=== PATIENT | male | born 1945 | race Caucasian/White ===

== ENCOUNTER → 2017-01-07 | Outpatient (CLI) | payer MEDICARE ==
[~2017-01-07] MED LIST: ASP81TEC PO; ATR20T PO; ENAL10TA PO; GBPN300C PO; GLIM4TAB PO; LINA5TAB PO; OMEP40CA36 PO; TIZA4TAB55 PO
--- OUTSIDE RECORDS SUMMARY | 2017-01-07 13:20 | XMS REPORT | Continuity of Care Document ---
Author Author [facility] Organization [facility] Address Unknown Phone Unavailable Care Team Providers Care Phd Internship Name Role Phone Chrisfritz Andrey PCP [phone] Source Comments Some departments are not documenting in the electronic medical record. If you do not see the information that you expected, contact Release of Information in the Health Information Management department at [phone] for further assistance in locating additional records.[facility] Active Allergies and Adverse Reactions No Known Allergies Current Medications Prescription Sig. Disp. Refills Start End Date Status Date sitaGLIPtin (JANUVIA) 100 Take 100 mg by mouth Active mg tab tablet daily. enalapril (VASOTEC) 10 mg Take 10 mg by mouth Active tablet daily. atorvastatin (LIPITOR) 20 Take 20 mg by mouth Active mg tablet daily. omeprazole DR(+) Take 40 mg by mouth Active (PRILOSEC) 40 mg capsule daily. gabapentin (NEURONTIN) Take 300 mg by mouth Active 300 mg capsule three times daily. meloxicam (MOBIC) 15 mg Take 1 Tab by mouth 30 Tab 8 01/19/20 Active tablet daily. 16 LEVEMIR FLEXTOUCH 100 Inject 30 Units into 01/08/20 Active unit/mL (3 mL) injection area(s) as directed at 16 pen bedtime daily. aspirin EC 81 mg tablet Take 81 mg by mouth Active daily. 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 Social History Tobacco Use Types Packs/Day Years Used Date Never Smoker Alcohol Use Drinks/Week oz/Week Comments No 0 Standard 0.0 drinks or equivalent Last Filed Vital Signs Vital Sign Reading Time Taken Blood Pressure 117/50 03/12/2016 1:59 PM CDT Pulse 59 03/12/2016 1:20 PM CDT Temperature 36.5 C (97.7 F) 03/12/2016 12:26 PM CDT Respiratory Rate 20 03/12/2016 12:26 PM CDT Height 1.778 m (5' 10") 03/12/2016 12:26 PM CDT Weight 85.73 kg (189 lb) 03/12/2016 12:26 PM CDT Body Mass Index 27.12 03/12/2016 12:26 PM CDT Oxygen Saturation 96% 03/12/2016 1:59 PM CDT Plan of Care Health Maintenance Due Date Last Done Comments Physical (Comprehensive) 1952 Exam Pertussis Vaccine 1957 Tetanus Vaccine 1963 Colorectal Cancer 1996 Screening Shingles Vaccine 2006 Prevnar/Pneumovax (#1) 2011 Influenza Vaccine 07/04/2016 Results from Last 3 Months Not on file
--- NOTE | 2017-01-07 17:25 | Diagnostic Imaging Report ---
Right ribs. INDICATION: Injury with pain. FINDINGS: Three views were obtained. The previous right rib series of 12/09/2013 noted mildly displaced fractures involving the posterolateral aspects of the right fourth, fifth, and sixth ribs. Those fractures have healed with mild residual deformity. The prior exam also noted healed nondisplaced fractures of the anterior aspects of the right eighth, ninth, and tenth ribs. Those findings are again evident and no different. There is no acute displaced rib fracture visualized. There is no sign of an injury to the underlying right lung either. Specifically, there is no pneumothorax. IMPRESSION: There are multiple healed rib fractures on the right, but there is no evidence for an acute bony abnormality. Dictated by: Dictated on workstation # [id number]
== END ==
LOC: RAD 13:16
PROVIDERS: ATTEND Family Medicine
DX: S29.9XXA Unspecified injury of thorax, initial encounter (principal); W06.XXXA Fall from bed, initial encounter; Y99.8 Other external cause status
CPT/HCPCS: 71100

== ENCOUNTER 2021-11-19 09:41 | Emergency (ER) | payer MEDICARE ==
[~2021-11-19] VITALS: Ht 177.8 cm; Wt 83.4 kg
[2021-11-19 10:37] LABS: BASOPHILS % (AUTO) 0 % (0-10); EOSINOPHILS # (AUTO) 0.1 10^3/uL (0.0-0.3); EOSINOPHILS % (AUTO) 2 % (0-10); HEMATOCRIT 44 % (40-54); HEMOGLOBIN 14.5 g/dL (13.3-17.7); LYMPHOCYTES # (AUTO) 0.7 10^3/uL (1.0-4.0); LYMPHOCYTES % (AUTO) 17 % (12-44); MEAN CORPUSCULAR HEMOGLOBIN 29 pg (25-34); MEAN CORPUSCULAR HGB CONC 33 g/dL (32-36); MEAN CORPUSCULAR VOLUME 88 fL (80-99); MEAN PLATELET VOLUME 10.1 fL (9.0-12.2); MONOCYTES # (AUTO) 0.6 10^3/uL (0.0-1.0); MONOCYTES % (AUTO) 16 % (0-12); NEUTROPHILS # (AUTO) 2.6 10^3/uL (1.8-7.8); NEUTROPHILS % (AUTO) 65 % (42-75); PLATELET COUNT 164 10^3/uL (130-400); WHITE BLOOD COUNT 4.1 10^3/uL (4.3-11.0)
[2021-11-19 10:56] LABS: ALBUMIN 4.1 GM/DL (3.2-4.5)
[2021-11-19 10:57] LABS: POTASSIUM 3.9 MMOL/L (3.6-5.0)
[2021-11-19 10:58] LABS: CALCIUM 8.9 MG/DL (8.5-10.1)
[2021-11-19 10:59] LABS: TOTAL PROTEIN 7.3 GM/DL (6.4-8.2)
[2021-11-19 11:01] LABS: BILIRUBIN,TOTAL 0.7 MG/DL (0.1-1.0)
[2021-11-19 11:03] LABS: CREATININE SERUM 1.61 MG/DL (0.60-1.30)
--- NOTE | 2021-11-19 11:25 | ED General ---
General Chief Complaint: COVID19 Suspect/Confirmed Stated Complaint: COVID + Nursing Triage Note: PT AMB TO RM 9 WITH COMPLAINT OF BACK PAIN, NAUSEA, SHAKINESS. STATES TESTED POSITIVE 11/14/21 FOR COVID WITH SYMPTOMS STARTING 3 DAYS BEFORE. SCHEDULED FOR INFUSION ON FRIDAY. Source of Information: Patient Exam Limitations: No Limitations (DALTON GEE APRN) History of Present Illness Date Seen by Provider: Nov 19, 2021 Time Seen by Provider: 11:11 Initial Comments This is a 76-year-old male who presented to the ER with complaints of left lower back/flank pain for the past 3 days. States that he was positive for COVID on 11/14/2021 with symptom onset 3 days prior to positive test. Also notes that he thinks he swallowed a whole popsicle stick 3 days ago. He is set up to receive monoclonal antibody infusion this . However would like to have his left side checked out. No cough, shortness of breath, chest pain, vomiting. Denies painful urination or hematuria. (DALTON GEE APRN) Allergies and Home Medications Allergies Coded Allergies: No Known Drug Allergies (Unverified , 09/10/12) Patient Home Medication List Home Medication List Reviewed: Yes (DALTON GEE APRN) Aspirin (Aspirin Ec 81 Mg) 81 Mg Tabec, 81 MG PO DAILY, (Reported) Entered as Reported by: ROSE LOPEZ on 09/09/12935 Atorvastatin (Lipitor 20MG) 20 Mg Tablet, 1 EACH PO DAILY, (Reported) Entered as Reported by: ROSE LOPEZ on 09/09/12935 Enalapril Maleate (Enalapril Maleate) 10 Mg Tablet, 10 MG PO DAILY, (Reported) Entered as Reported by: ROSE LOPEZ on 09/09/12935 Gabapentin (Neurontin) 300 Mg Cap, 300 MG PO DAILY, (Reported) Entered as Reported by: ROSE LOPEZ on 09/09/12935 Glimepiride (Glimepiride) 4 Mg Tablet, 6 MG PO DAILY, (Reported) Entered as Reported by: ROSE LOPEZ on 09/09/12935 Linagliptin (Tradjenta) 5 Mg Tablet, 5 MG PO DAILY, (Reported) Entered as Reported by: ROSE LOPEZ on 09/09/12935 Omeprazole (Omeprazole) 40 Mg Capsule.dr, 40 MG PO DAILY, (Reported) Entered as Reported by: ROSE LOPEZ on 09/09/12935 Tizanidine Hcl (Tizanadine Hcl) 4 Mg Tablet, 4 MG PO TID, (Reported) Entered as Reported by: ROSE LOPEZ on 09/09/12935 Review of Systems Review of Systems Constitutional: malaise EENTM: see HPI Respiratory: cough Cardiovascular: no symptoms reported Gastrointestinal: see HPI Genitourinary: no symptoms reported Musculoskeletal: no symptoms reported Skin: no symptoms reported Psychiatric/Neurological: No Symptoms Reported Hematologic/Lymphatic: No Symptoms Reported Immunological/Allergic: no symptoms reported (DALTON GEE APRN) Past Vbzuoyi-Imxoyd-Qljcck Hx Patient Social History Tobacco Use?: No Use of E-Cig and/or Vaping dev: No Substance use?: No Alcohol Use?: No Pt feels they are or have been: No (DALTON GEE APRN) Immunizations Up To Date Influenza Vaccine Up-to-Date: Yes; Up-to-Date First/Initial COVID19 Vaccinat: SEPTEMBER 23 Second COVID19 Vaccination Melvin: SEPTEMBER 2021 COVID19 Vaccine Teacher Vocal: BRANDAN (DALTON GEE APRN) Past Medical History Reproductive Disorders: No (DALTON GEE APRN) Physical Exam Vital Signs Vital Signs - First Documented 11/19/21 09:51 Pulse 72 Resp 16 B/P (MAP) 160/92 (114) Pulse Ox 98 O2 Delivery Room Air (SABAS STEEN MD) Vital Signs Capillary Refill : Less Than 3 Seconds (DALTON GEE APRN) Height, Weight, BMI Height: '" Weight: lbs. oz. kg; 26.00 BMI Method: General Appearance: No Apparent Distress, WD/WN Eyes: Bilateral Eye Normal Inspection, Bilateral Eye PERRL, Bilateral Eye EOMI HEENT: PERRL/EOMI, Normal ENT Inspection, Pharynx Normal, Moist Mucous Membranes Neck: Full Range of Motion, Normal Inspection, Non Tender Respiratory: Chest Non Tender, Lungs Clear, Normal Breath Sounds, No Accessory Muscle Use, No Respiratory Distress Cardiovascular: Regular Rate, Rhythm, Normal Peripheral Pulses Gastrointestinal: Normal Bowel Sounds, No Organomegaly, No Pulsatile Mass, Non Tender, Soft Back: Normal Inspection, No CVA Tenderness, Other (Left lower back tenderness ) Extremity: Normal Capillary Refill, Normal Inspection, Normal Range of Motion Neurologic/Psychiatric: Alert, Oriented x3, No Motor/Sensory Deficits, Normal Mood/Affect Skin: Normal Color, Warm/Dry (DALTON GEE APRN) Progress/Results/Core Measures Suspected Sepsis SIRS Temperature: Pulse: 72 Respiratory Rate: 16 Laboratory Tests 11/19/21 10:30: White Blood Count 4.1L Blood Pressure 160 /92 Mean: 114 Laboratory Tests 11/19/21 10:30: Creatinine 1.61H, Platelet Count 164, Total Bilirubin 0.7 (DALTON GEE APRN) Results/Orders Lab Results Laboratory Tests Test 11/19/21 10:30 11/19/21 13:25 Range/Units White Blood Count 4.1 L 4.3-11.0 10^3/uL Red Blood Count 4.95 4.30-5.52 10^6/uL Hemoglobin 14.5 13.3-17.7 g/dL Hematocrit 44 40-54 % Mean Corpuscular Volume 88 80-99 fL Mean Corpuscular Hemoglobin 29 25-34 pg Mean Corpuscular Hemoglobin Concent 33 32-36 g/dL Red Cell Distribution Width 12.6 10.0-14.5 % Platelet Count 164 130-400 10^3/uL Mean Platelet Volume 10.1 9.0-12.2 fL Immature Granulocyte % (Auto) 0 % Neutrophils (%) (Auto) 65 42-75 % Lymphocytes (%) (Auto) 17 12-44 % Monocytes (%) (Auto) 16 H 0-12 % Eosinophils (%) (Auto) 2 0-10 % Basophils (%) (Auto) 0 0-10 % Neutrophils # (Auto) 2.6 1.8-7.8 10^3/uL Lymphocytes # (Auto) 0.7 L 1.0-4.0 10^3/uL Monocytes # (Auto) 0.6 0.0-1.0 10^3/uL Eosinophils # (Auto) 0.1 0.0-0.3 10^3/uL Basophils # (Auto) 0.0 0.0-0.1 10^3/uL Immature Granulocyte # (Auto) 0.0 0.0-0.1 10^3/uL Sodium Level 138 135-145 MMOL/L Potassium Level 3.9 3.6-5.0 MMOL/L Chloride Level 105 98-107 MMOL/L Carbon Dioxide Level 21 21-32 MMOL/L Anion Gap 12 5-14 MMOL/L Blood Urea Nitrogen 24 H 7-18 MG/DL Creatinine 1.61 H 0.60-1.30 MG/DL Estimat Glomerular Filtration Rate 44 BUN/Creatinine Ratio 15 Glucose Level 181 H 70-105 MG/DL Calcium Level 8.9 8.5-10.1 MG/DL Corrected Calcium 8.8 8.5-10.1 MG/DL Total Bilirubin 0.7 0.1-1.0 MG/DL Aspartate Amino Transf (AST/SGOT) 15 5-34 U/L Alanine Aminotransferase (ALT/SGPT) 17 0-55 U/L Alkaline Phosphatase 67 40-136 U/L C-Reactive Protein High Sensitivity 0.09 0.00-0.50 MG/DL Total Protein 7.3 6.4-8.2 GM/DL Albumin 4.1 3.2-4.5 GM/DL Lipase 43 8-78 U/L Urine Color YELLOW Urine Clarity CLEAR Urine pH 6.0 5-9 Urine Specific [place] 1.015 L 1.016-1.022 Urine Protein TRACE H NEGATIVE Urine Glucose (UA) 3+ H NEGATIVE Urine Ketones 1+ H NEGATIVE Urine Nitrite NEGATIVE NEGATIVE Urine Bilirubin NEGATIVE NEGATIVE Urine Urobilinogen 0.2 < = 1.0 MG/DL Urine Leukocyte Esterase NEGATIVE NEGATIVE Urine RBC (Auto) TRACE-I H NEGATIVE Urine RBC NONE /HPF Urine WBC 0-2 /HPF Urine Squamous Epithelial Cells 0-2 /HPF Urine Crystals NONE /LPF Urine Bacteria NEGATIVE /HPF Urine Casts NONE /LPF Urine Mucus NEGATIVE /LPF Urine Culture Indicated NO (SABAS STEEN MD) My Orders Orders - SABAS STEEN MD Cbc With Automated Diff (11/19/21 09:57) Comprehensive Metabolic Panel (11/19/21 09:57) Hs C Reactive Protein (11/19/21 09:57) Lipase (11/19/21 09:57) Ua Culture If Indicated (11/19/21 09:57) Ed Iv/Invasive Line Start (11/19/21 09:57) (SABAS STEEN MD) Vital Signs/I&O 11/19/21 11/19/21 09:51 14:15 Pulse 72 86 Resp 16 19 B/P (MAP) 160/92 (114) 153/89 Pulse Ox 98 95 O2 Delivery Room Air Room Air (SABAS STEEN MD) Vital Signs/I&O Capillary Refill : Less Than 3 Seconds (DALTON GEE APRN) Blood Pressure Mean: 114 Progress Note : Progress Note Patient examined and in no acute distress. Vital signs stable at this time. Will order basic labs, chest x-ray, CT abdomen pelvis without contrast to evaluate for any foreign bodies or perforation. Labs reviewed and are unremarkable. Has decreased white count consistent with COVID. Chest x-ray no acute pulmonary process. CT abdomen pelvis shows nonobstructing left renal calculi and a large left hiatal hernia. No other acute processes seen. States pain is tolerable at this time and denies any needs for pain management. Discharge plan of care reviewed with patient and he is agreeable with plan. (DALTON GEE APRN) Diagnostic Imaging Diagonstic Imaging: [facility] [place] [place] NAME: CHANDAN HUA [facility] REC#: [id number] PT STATUS: DEP ER : 1945 PHYSICIAN: DALTON GEE APRN ADMIT DATE: 11/19/21/ER Signed Date of Exam:11/19/21 CHEST 1 VIEW, AP/PA ONLY INDICATION: COVID-19 positive. TIME OF EXAM: 11:46 a.m. COMPARISON: Comparison is made with prior chest from 09/09/2012. FINDINGS: Heart size is normal. Lungs are clear. No infiltrates are detected. The pulmonary vascularity is normal. No effusion or pneumothorax is detected. IMPRESSION: No acute cardiopulmonary process is detected. Dictated by: Dictated on workstation # [id number] Dict: 11/19/21 1158 Trans: 11/19/21 1600 AS6 [id number] Interpreted by: LYDIA ALONSO MD Electronically signed by: LYDIA ALONSO MD 11/19/21 1600 Reviewed: Reviewed by De Diagonstic Imaging: CT Comments [facility] [place] [place] NAME: CHANDAN HUA [facility] REC#: [id number] PT STATUS: DEP ER : 1945 PHYSICIAN: DALTON GEE APRN ADMIT DATE: 11/19/21/ER Signed Date of Exam:11/19/21 CT ABDOMEN/PELVIS WO PROCEDURE: CT abdomen and pelvis without contrast. TECHNIQUE: Multiple contiguous axial images were obtained through the abdomen and pelvis without the use of intravenous contrast. Auto Exposure Controls were utilized during the CT exam to meet ALARA standards for radiation dose reduction. INDICATION: Abdominal pain and cramping as well as constipation. COMPARISON: No prior studies are available for comparison. FINDINGS: Lung bases are clear. There is a large hiatal hernia. There is a small pericardial effusion. There appears to be trace bilateral pleural fluid. The liver and gallbladder are unremarkable. No biliary ductal dilatation is seen. Pancreas and spleen are unremarkable. No adrenal mass is detected. Kidneys contain cortical and renal sinus cysts. There is a small nonobstructing calculus in the left kidney. No hydronephrosis is seen. The aorta is nonaneurysmal. Bowel loops are normal in caliber. There is no obstruction. No free fluid or fluid collection is seen. No inflammatory changes are identified. Bladder is grossly unremarkable. Prostate is unremarkable. No definite abdominal or pelvic lymphadenopathy is seen. Bony structures are nonacute. There are bilateral pars defects at L5-S1 with grade 1 spondylolisthesis of L5 on S1. IMPRESSION: 1. Large hiatal hernia. 2. No acute feature in the abdomen or pelvis is identified. Dictated by: Dictated on workstation # [id number] Dict: 11/19/21 1342 Trans: 11/19/21 1600 [id number] Interpreted by: LYDIA ALONSO MD Electronically signed by: LYDIA ALONSO MD 11/19/21 1600 Reviewed: Reviewed by Me (DALTON GEE APRN) Departure Impression Primary Impression: COVID-19 Additional Impression: Renal calculus, left Disposition: HOME, SELF-CARE Condition: Improved Departure-Patient Inst. Decision time for Depature: 14:10 (DALTON GEE APRN) Referrals: PALMIRA OCONNOR DO (PCP/Family) Primary Care Physician Patient Instructions: COVID-19 (DC) Add. Discharge Instructions: Plan: 1. Return on for your monoclonal antibody infusion as scheduled. 2. May take Tylenol or Ibuprofen as needed for pain per package. 3. Return for any new, concerning, or worsening symptoms. 4. Drink plenty of fluids to stay hydrated. All discharge instructions reviewed with patient and/or family. Voiced understanding. ATTENDING PHYSICIAN NOTE: I was physically present as attending physician in the emergency department during the care of this patient, but I was not directly involved in the decision making or delivery of care for this patient. (SABAS STEEN MD) DALTON GEE APRN Nov 19, 2021 11:25 SABAS STEEN MD Nov 25, 2021 06:43
--- NOTE | 2021-11-19 12:03 | Diagnostic Imaging Report ---
INDICATION: COVID-19 positive. TIME OF EXAM: 11:46 a.m. COMPARISON: Comparison is made with prior chest from 09/09/2012. FINDINGS: Heart size is normal. Lungs are clear. No infiltrates are detected. The pulmonary vascularity is normal. No effusion or pneumothorax is detected. IMPRESSION: No acute cardiopulmonary process is detected. Dictated by: Dictated on workstation # [id number]
[2021-11-19] MEDS ORDERED: LACTATED RINGERS 1,000 ML IV ONE (12:45)
[2021-11-19 13:32] LABS: BILIRUBIN,URINE NEGATIVE (NEGATIVE); CLARITY,URINE CLEAR; COLOR,URINE YELLOW; GLUCOSE, URINE (UA) 3+ (NEGATIVE); KETONES,URINE 1+ (NEGATIVE); LEUKOCYTE ESTERASE ,URINE NEGATIVE (NEGATIVE); NITRITE,URINE NEGATIVE (NEGATIVE); PROTEIN,URINE TRACE (NEGATIVE)
[2021-11-19 13:38] LABS: WBC,URINE 0-2 /HPF
[2021-11-19 13:39] LABS: BACTERIA,URINE NEGATIVE /HPF; SQUAMOUS EPITHELIAL CELL,UR 0-2 /HPF
--- NOTE | 2021-11-19 13:52 | Diagnostic Imaging Report ---
PROCEDURE: CT abdomen and pelvis without contrast. TECHNIQUE: Multiple contiguous axial images were obtained through the abdomen and pelvis without the use of intravenous contrast. Auto Exposure Controls were utilized during the CT exam to meet ALARA standards for radiation dose reduction. INDICATION: Abdominal pain and cramping as well as constipation. COMPARISON: No prior studies are available for comparison. FINDINGS: Lung bases are clear. There is a large hiatal hernia. There is a small pericardial effusion. There appears to be trace bilateral pleural fluid. The liver and gallbladder are unremarkable. No biliary ductal dilatation is seen. Pancreas and spleen are unremarkable. No adrenal mass is detected. Kidneys contain cortical and renal sinus cysts. There is a small nonobstructing calculus in the left kidney. No hydronephrosis is seen. The aorta is nonaneurysmal. Bowel loops are normal in caliber. There is no obstruction. No free fluid or fluid collection is seen. No inflammatory changes are identified. Bladder is grossly unremarkable. Prostate is unremarkable. No definite abdominal or pelvic lymphadenopathy is seen. Bony structures are nonacute. There are bilateral pars defects at L5-S1 with grade 1 spondylolisthesis of L5 on S1. IMPRESSION: 1. Large hiatal hernia. 2. No acute feature in the abdomen or pelvis is identified. Dictated by: Dictated on workstation # [id number]
[2021-11-19 14:15] VITALS: BP 153/89
== END 2021-11-19 14:15 | disposition home or self-care (01) ==
LOC: EDUNIT# 09:41 → ER 09:43
DX: U07.1 COVID-19 (principal); N20.0 Calculus of kidney; Z79.82 Long term (current) use of aspirin
CPT/HCPCS: 36415; 71045; 74176; 80053; 81000; 83690; 85025; 86141

== ENCOUNTER 2021-11-22 09:02 | Outpatient (CLI) | payer MEDICARE ==
[~2021-11-22] VITALS: Ht 177.8 cm; Wt 82.1 kg
[2021-11-22 09:07] VITALS: BP 150/82
[2021-11-22] MEDS ORDERED: CASIRIVIMAB/IMDEVIMAB 1,200 MG in NS (IVPB) 50 ML IV ONE (09:15)
[2021-11-22] MEDS ORDERED: diphenhydrAMINE 50 MG/ML INJ (BENADRYL) IV PRN (09:15)
[2021-11-22] MEDS ORDERED: ACETAMINOPHEN 500 MG TAB (TYLENOL) PO PRN (09:15)
[2021-11-22] MEDS ORDERED: EPINEPHrine INJECTION 1 MG/ML AMP IM PRN (09:15)
[2021-11-22] MEDS ORDERED: ONDANSETRON 4 MG/2 ML (SDV) Z0FRAN IV PRN (09:15)
[2021-11-22 10:05] VITALS: BP 137/81
== END 2021-11-22 10:07 | disposition home or self-care (01) ==
LOC: INFUSION 09:02
PROVIDERS: ATTEND Family Medicine
DX: U07.1 COVID-19 (principal)

== ENCOUNTER → 2022-03-28 | Outpatient (CLI) | payer MEDICARE ==
--- NOTE | 2022-03-28 11:29 | Diagnostic Imaging Report ---
EXAMINATION: Chest 2 view HISTORY: Shortness of breath. COMPARISON: 11/19/2021. FINDINGS: The lung volumes are hyperexpanded. No focal consolidation is seen. No large pleural effusion or pneumothorax is seen. The cardiomediastinal silhouette is normal in size and contour. No acute osseous abnormality is seen. IMPRESSION: 1. Hyperexpanded lung volumes which can be seen with COPD. No focal consolidation or pleural effusion. Dictated by: Dictated on workstation # [id number]
== END ==
LOC: RAD 09:27
PROVIDERS: ATTEND Family Medicine
DX: R06.02 Shortness of breath (principal)
CPT/HCPCS: 71046

== ENCOUNTER → 2022-04-03 | Outpatient (CLI) | payer MEDICARE ==
[~2022-04-03] MED LIST changes: +CATHETER FLUSH 10 ML SYR IVP PRN; +REGADENOSON 0.4 MG/5 ML SYR (LEXISCAN) IV ONE
[2022-04-03 09:27] VITALS: BP 144/86
--- NOTE | 2022-04-03 11:27 | Cardiology Stress Test Report ---
Stress Test Report Date of Procedure/Referring: Date of Procedure: Apr 03, 2022 PCP Andrey Oconnor DO Admitting Physician Admitting Physician: Attending Physician: Andrey Oconnor DO Indications: Dyspnea Baseline Heart Rate: 63 Baseline Blood Pressure: Blood Pressure Systolic: 144 Blood Pressure Diastolic: 86 Baseline Vitals Vital Signs Date Time Temp Pulse Resp B/P (MAP) Pulse Ox O2 Delivery O2 Flow Rate FiO2 04/03/22 09:27 63 144/86 (105) Baseline EKG: Baseline EKG: NSR Summary After explaining the procedure to the patient, he signed a consent and then brought to the stress nuclear laboratory. Patient received 0.4 mg Lexiscan for stress test, ECG, heart rate and blood pressure were monitored continuously. Resting and stress dose of radio tracer were injected, imaging was acquired and reviewed in short axis, horizontal long axis and vertical long axis views. TID: 1.08 SSS: 3 SDS: 1 EF: 59 1. Patient tolerated Lexiscan well 2. Diaphragmatic attenuation with mild decrease uptake at the inferior apical segment with mild reversibility most probably due to diaphragmatic attenuation. No significant ischemia or infarction noted on SPECT images 3. Normal left ventricular size, ejection fraction 59% Copy Copies To 1: ANDREY OCONNOR BASHAR J MD Apr 03, 2022 11:27
== END ==
LOC: CARD 08:30
PROVIDERS: ATTEND Family Medicine
DX: R06.02 Shortness of breath (principal); R06.00 Dyspnea, unspecified
CPT/HCPCS: 78452; 93017; A9502

== ENCOUNTER → 2022-04-09 | Outpatient (CLI) | payer MEDICARE ==
[~2022-04-09] MED LIST changes: -CATHETER FLUSH 10 ML SYR IVP PRN; -REGADENOSON 0.4 MG/5 ML SYR (LEXISCAN) IV ONE; +RT-ALBUTEROL SULF 2.5 MG/3 ML PRE-MIX VIAL INH ONE
== END ==
LOC: RT 08:00
PROVIDERS: ATTEND Family Medicine
DX: J44.9 Chronic obstructive pulmonary disease, unspecified (principal)
CPT/HCPCS: 94060; 94726; 94729

== ENCOUNTER 2022-04-24 10:00 | Day surgery (SDC) | payer MEDICARE ==
[2022-04-24] VITALS (10 sets, daily range): BP systolic 134–156; BP diastolic 77–91
[~2022-04-24] VITALS: Ht 177.8 cm; Wt 88.0 kg
[2022-04-24 08:17] LABS: BILIRUBIN,URINE NEGATIVE (NEGATIVE); CLARITY,URINE CLEAR; COLOR,URINE YELLOW; GLUCOSE, URINE (UA) 2+ (NEGATIVE); KETONES,URINE NEGATIVE (NEGATIVE); LEUKOCYTE ESTERASE ,URINE NEGATIVE (NEGATIVE); NITRITE,URINE NEGATIVE (NEGATIVE); PROTEIN,URINE TRACE (NEGATIVE)
--- NOTE | 2022-04-24 08:19 | Diagnostic Imaging Report ---
INDICATION: Shortness of breath. Time of Exam: 8:04 AM Correlation is made with prior chest from 11/19/2021. Heart size is stable. Lungs are clear. No infiltrates are seen. There is no effusion or pneumothorax. IMPRESSION: No acute cardiopulmonary process is detected. Dictated by: Dictated on workstation # [id number]
[2022-04-24 08:29] LABS: HEMATOCRIT 41 % (40-54); HEMOGLOBIN 13.5 g/dL (13.3-17.7); MEAN CORPUSCULAR HEMOGLOBIN 29 pg (25-34); MEAN CORPUSCULAR HGB CONC 33 g/dL (32-36); MEAN CORPUSCULAR VOLUME 89 fL (80-99); MEAN PLATELET VOLUME 10.3 fL (9.0-12.2); PLATELET COUNT 212 10^3/uL (130-400); WHITE BLOOD COUNT 8.4 10^3/uL (4.3-11.0)
[2022-04-24 08:34] LABS: PROTHROMBIN TIME PATIENT 13.1 SEC (12.2-14.7)
[2022-04-24 08:37] LABS: ALBUMIN 4.1 GM/DL (3.2-4.5); BILIRUBIN,TOTAL 0.6 MG/DL (0.1-1.0); CALCIUM 9.5 MG/DL (8.5-10.1); CREATININE SERUM 1.3 MG/DL (0.60-1.30); POTASSIUM 4.4 MMOL/L (3.6-5.0); TOTAL PROTEIN 7.5 GM/DL (6.4-8.2)
[2022-04-24 08:44] LABS: BACTERIA,URINE NEGATIVE /HPF; HYALINE CASTS, URINE 0-2 /LPF; SQUAMOUS EPITHELIAL CELL,UR RARE /HPF; WBC,URINE RARE /HPF
--- NOTE | 2022-04-24 09:31 | Conscious Sedation/ASA ---
Conscious Sedation Pre-Proced Time 09:31 ASA Score 3 For ASA 3 and 4: Consider anesthesia and medical clearance. Also, for patients with a history of failed moderate sedation consider anesthesia. Airway Lungs Heart ASA score ASA 1: a normal healthy patient ASA 2: a patient with a mild systemic disease (mid diabetes, controlled hypertension, obesity x ASA 3: a patient with a severe systemic disease that limits activity (angina, COPD, prior Myocardial infarction) ASA 4: a patient with an incapacitating disease that is a constant threat to life (CHF, renal failure) ASA 5: a moribund patient not expected to survive 24 hrs. (ruptured aneurysm) ASA 6: a declared brain- patient whose organs are being harvested. For emergent operations, add the letter E after the classification Mallampati Classification Grade 3 Sedation Plan Analgesia, Amnesia, Plan communicated to team members, Discussed options with patient/fam, Discussed risks with patient/fam The patient is an appropriate candidate to undergo the planned procedure, sedation, and anesthesia. The patient immediately re-assessed prior to indication. CHEO TRUJILLO MD Apr 24, 2022 09:31
[~2022-04-24 10:00] MED LIST changes: +ATOR40TA70 PO; +FINA5TAB6 PO; +GABA300C PO; +HEParin (CATH LAB) 2,000 ML IV ONE; +HEParin 1000 UNIT/ML (10ML VIAL) FOR BOLUS ONE; +INSU100I29 SQ; +LIDOCAINE 1% INJ 20 ML VIAL ONE; +METF-397 PO; +MIDAZOLAM 5 MG/5 ML (VERSED) VIAL ONE; +NITRO DRIP 25000 MCG/D5W 250 ML IV ONE; +NS IV 1000 ML 1,000 ML IV SCH; +NS IV 1000 ML 1,000 ML ONE; +OMEP40CA6 PO; +RT-ALBUINH INH; -RT-ALBUTEROL SULF 2.5 MG/3 ML PRE-MIX VIAL INH ONE; +SITA100T12 PO; +TMSL.4C PO; +VERAPAMIL 5 MG/2 ML (CALAN) VIAL IV ONE; +fentaNYL INJ 100 MCG/2 ML AMP ONE
--- NOTE | 2022-04-24 10:23 | Cardiac Cath Report ---
Cardiac Cath Report Physician (s)/State Comptroller (s) Physician CHEO TRUJILLO MD Pre-Procedure Diagnosis Pre-Procedure Diagnosis: Accelerating angina Post-Procedure Note Procedure Start Date: Apr 24, 2022 Name of Procedure: Left heart catheterization Aortic arch angiogram Findings/Procedure Note PROCEDURE NOTE: 77-year-old gentleman with history of diabetes mellitus, hypertension and hyperlipidemia, having accelerating angina, had an abnormal stress test. Due to his significant symptoms I decided to proceed with cardiac catheterization possible PTCA. After explaining the procedure to the patient, all pros and cons were explained, all questions were answered. The patient signed the consent and then he was placed on the cardiac catheterization laboratory. Groin was prepped SL fashion local anesthesia was used. Sheath placed in the right radial artery, [place] catheter was advanced and prolapsed to the left ventricular cavity, pressure was measured, pullback LV to aorta was done, engaged the right and left coronary system, angiogram was done then I pulled the catheter back to the aortic arch I performed aortic arch angiogram due to the significant tortuosity encountered during advancing the catheter through the brachiocephalic artery. At the end of the procedure the sheath was removed. Vascular band was used FINDINGS: Hemodynamics LV 82/17, end-diastolic pressure of 17 Aorta 96/66 mean of 73 ANATOMY: Left Main is free of obstructive disease Left Anterior Descending has 95% stenosis proximally, 90% stenosis at the midportion, diagonal artery has 60 to 70% stenosis. Left Circumflex is moderate in size with 40 to 50% stenosis at the midportion Right Coronary Artery is large dominant artery with long tubular stenosis 80%. LV Gram was not done, his ejection fraction is known to be 60% on the stress test Aorta evaluation done with aortic arch angiogram showing slightly prominent aor tic arch, tortuous brachiocephalic artery, no obstruction was noted, the left carotid and left subclavian arteries appeared normal CONCLUSION: 1. Severe multivessel coronary artery disease involving the proximal and mid LAD, proximal diagonal artery, proximal right coronary artery and mild to moderate disease in the circumflex system 2. Normal left ventricular end-diastolic pressure, known ejection fraction 60% from the gated images. 3. Slightly prominent aortic arch, tortuous brachiocephalic artery with mild calcification nonobstructive disease DISCUSSION AND RECOMMENDATION: Continue to maximize medical therapy and arrange for evaluation for bypass surgery Anesthesia Type: Conscious Sedation Estimated blood loss (mL): 15 ml Contrast Amount: 40 ml Total Radiation Dose: 448 mGy Post-Procedure Diagnosis Post-operative diagnosis: Coronary artery disease Hypertension Hyperlipidemia Diabetes mellitus CHEO TRUJILLO MD Apr 24, 2022 10:23
[2022-04-24] MEDS ORDERED: NS IV 1000 ML 1,000 ML IV SCH (10:30)
== END 2022-04-24 14:34 | disposition short-term general hospital (02) ==
LOC: CATH 10:00 → CSD 11:08 → CATH 14:34
PROVIDERS: ATTEND Internal Medicine Cardiovascular Disease
DX: I25.110 Atherosclerotic heart disease of native coronary artery with unstable angina pectoris (principal); I10 Essential (primary) hypertension; E78.5 Hyperlipidemia, unspecified; E11.9 Type 2 diabetes mellitus without complications; I65.23 Occlusion and stenosis of bilateral carotid arteries; Z79.4 Long term (current) use of insulin; Z79.84 Long term (current) use of oral hypoglycemic drugs
CPT/HCPCS: 36221; 71045; 80053; 80061; 81000; 85027; 85610; 85730; 87081; 93458; C1894; 36415; 93005

== ENCOUNTER 2022-05-01 09:48 | Inpatient (IN) | payer MEDICARE ==
[~2022-05-01] VITALS: Ht 177.8 cm; Wt 86.8 kg
[~2022-05-01 09:48] MED LIST changes: -HEParin (CATH LAB) 2,000 ML IV ONE; -HEParin 1000 UNIT/ML (10ML VIAL) FOR BOLUS ONE; -LIDOCAINE 1% INJ 20 ML VIAL ONE; -MIDAZOLAM 5 MG/5 ML (VERSED) VIAL ONE; -NITRO DRIP 25000 MCG/D5W 250 ML IV ONE; -NS IV 1000 ML 1,000 ML IV SCH; -NS IV 1000 ML 1,000 ML ONE; -VERAPAMIL 5 MG/2 ML (CALAN) VIAL IV ONE; -fentaNYL INJ 100 MCG/2 ML AMP ONE
[2022-05-01] MEDS ORDERED: MELATONIN 3 MG TABLET PO PRN (10:45)
[2022-05-01] MEDS ORDERED: BISACODYL 10 MG SUPP (DULCOLAX) PR PRN (10:45)
[2022-05-01] MEDS ORDERED: ACETAMINOPHEN 325 MG TABLET PO PRN (10:45)
[2022-05-01] MEDS ORDERED: LOPERAMIDE 2 MG (IMODIUM) TABLET PO PRN (10:45)
[2022-05-01] MEDS ORDERED: DOCUSATE SODIUM 100 MG (COLACE) CAP PO PRN (10:45)
[2022-05-01] MEDS ORDERED: FLEET ENEMA ADULT 1 EA BTL PR PRN (10:45)
[2022-05-01] MEDS ORDERED: diphenhydrAMINE 25 MG TAB (BENADRYL) PO PRN (10:45)
[2022-05-01] MEDS ORDERED: ALPRAZolam 0.25 MG (XANAX) TAB PO PRN (10:45)
[2022-05-01] MEDS ORDERED: CALCIUM CARBONATE 500 MG (TUMS) TAB.CHEW PO PRN (10:45)
[2022-05-01] MEDS ORDERED: LACTULOSE SYRUP 10GM/15ML (ENULOSE) 30ML UDC PO PRN (10:45)
[2022-05-01] MEDS ORDERED: ONDANSETRON 4 MG (ZOFRAN) ORAL DISSOLVE TAB PO PRN (10:45)
[2022-05-01] MEDS ORDERED: guaiFENesin/CODEINE (ROBITUSSIN AC) 10ML UDC PO PRN (10:45)
[2022-05-01 13:00] VITALS: BP 128/83
[2022-05-01] MEDS ORDERED: INSU100V SQ ×2 (13:58→13:59)
[2022-05-01] MEDS ORDERED: ASPI-1238 PO (13:58)
[2022-05-01] MEDS ORDERED: INSU100V6 SQ (13:59)
[2022-05-01] MEDS ORDERED: POTA-51 PO (13:59)
[2022-05-01] MEDS ORDERED: FURO40TA4 PO (13:59)
[2022-05-01] MEDS ORDERED: METO-333 PO (13:59)
--- NOTE | 2022-05-01 14:04 | Physical Therapy Evaluation ---
PT Evaluation-General Medical Diagnosis Admission Date May 01, 2022 at 13:00 Medical Diagnosis: CABG x 3 Onset Date: Apr 25, 2022 Therapy Diagnosis Therapy Diagnosis: impaired mobility Referral Physician: Adelaida Orozco DO Reason for Referral: Evaluation/Treatment Medical History Pertinent Medical History: CAD, DM, Neuropathy Reviewed History: Yes Social History Home: [facility] Current Living Status: Spouse Entry Into Home: Stairs With Railing PT Steps Into Home: 3 Prior Prior Level of Function SCALE: Activities may be completed with or without assistive devices. 6-Rtitbvakkn-fwphwzc completes the activity by him/herself with no assistance from a helper. 5-Set-up or Clean-up Assistance-helper sets up or cleans up; patient completes activity. [place] assists only prior to or following the activity. 4-Supervision or Touching Assistance-helper provides verbal cues and/or touching/steadying and/or contact guard assistance as patient completes activity. Assistance may be provided throughout the activity or intermittently. 3-Partial/Moderate Assistance-helper does LESS THAN HALF the effort. [place] lifts, holds or supports trunk or limbs, but provides less than half the effort. 2-Substantial/Maximal Assistance-helper does MORE THAN HALF the effort. [place] lifts or holds trunk or limbs and provides more than half the effort. 2-Rptsdqxgk-fumovg does ALL the effort. Patient does none of the effort to complete the activity. Or, the assistance of 2 or more helpers is required for the patient to complete the activity. If activity was not attempted, code reason: 7-Patient Refused. 9-Not Applicable-not attempted and the patient did not perform the activity before the current illness, exacerbation or injury. 10-Not Attempted due to Environmental Limitations-(lack of equipment, weather restraints, etc.). 88-Not Attempted due to Medical Conditions or Safety Concerns. Bed Mobility: 6 Transfers (B,C,W/C): 6 Gait: 6 Stairs: 6 Indoor Mobility (Ambulation): Independent Stairs: Independent PT Evaluation-Current Subjective Patient in family vehicle pre tx, agrees to PT, has no complaints of pain at rest. Will be co-treating with OT for part of tx due to poor patient mobility, sternal precautions, coordinate UE and LE with activity, safety and reduce risk of falls. Pt/Family Goals to be independent at home Objective Patient Orientation: Person, Place, Situation ROM/Strength ROM Lower Extremities WNL Strength Lower Extremities LLE (hip flexion 4+/5, knee flexion 4+/5, knee extension 5/5, dorsiflexion 5/5), RLE (hip flexion 4+/5, knee flexion 4+/5, knee extension 5/5, dorsiflexion 5/5) Sensory Vision: Wears Glasses Hearing: Functional Sensation Right Lower Extremit: Impaired Sensation Left Lower Extremity: Impaired Sensation Lower Extremities Patient seems to have intact light touch sensation but has neuropathy. Transfers Roll Left & Right (QC): 4 Sit to Lying (QC): 4 Lying to Sitting/Side of Bed(Q: 4 Sit to Stand (QC): 4 Chair/Tgw-du-Dbcgd Xfer(QC): 4 Toilet Transfer (QC): 4 Car Transfer (QC): 4 Patient performs rolling and supine <-> sit with SBA, sit <-> stand and transfers CGA, car transfer CGA. Occasional cues for hand placement and for precautions. Gait Does the Patient Walk?: Yes Mode of Locomotion: Walk Anticipated Mode of Locomotion: Walk Walk 10 feet (QC): 4 Walk 50 ft with 2 Turns(QC): 4 Walk 150 ft (QC): 4 Walking 10ft/uneven surface-QC: 4 Distance: 300' Gait Assistive Device: FWW Comments/Gait Description Patient can ambulate 300' with a rolling walker with CGA (including 50' with at least 2 turns of 90 degrees and 10' over an uneven surface), slow but steady ambulation, good step through and foot clearance Wheelchair Training Wheel 50 ft with 2 turns (QC): 9 Wheel 150 ft (QC): 9 Stairs #of Steps: 4 1 Step (curb) (QC): 4 4 Steps (QC): 4 12 Steps (QC): 88 Patient can go up and down 4 steps using 2 handrails with CGA, reciprocal steps Balance Sitting Static: Normal Sitting Dynamic: Normal Standing Static: Normal Standing Dynamic: Good Picking up an Object (QC): 4 (CGA using a physical instructor) Special Test Comments Patient scored 25/28 on the Tinetti Assessment Tool Treatment PT performed bed mobility and transfers, ambulation, balance testing, stair training, OT performed UE positioning and safety during activity, ADL's. Assessment/Needs Patient in therapy gym post tx, CAR SALESMAN to take over tx. Patient has impaired mobility, endurance, balance. No increased pain with tx. Rehab Potential: Fair PT Short Term Goals Short Term Goals Time Frame: May 08, 2022 Roll Left & Right: 6 Sit to lyin Lying to sitting on side of be: 6 Sit to stand: 4 (SBA) Chair/lfs-ki-rookn transfer: 4 (SBA) Walk 10 feet: 4 (SBA) Walk 50 feet with two turns: 4 (SBA) Walk 150 feet: 4 (SBA) PT Halfway Goals Java Performance Engineer Goals PT Halfway Goals Time Frame: May 22, 2022 Roll Left & Right (QC): 6 Sit to Lying (QC): 6 Lying-Sitting on Side/Bed(QC): 6 Sit to Stand (QC): 6 Chair/Rvh-iq-Qunnc Xfer(QC): 6 Toilet Transfer (QC): 6 Car Transfer (QC): 6 Does the Patient Walk: Yes Walk 10 feet (QC): 6 Walk 50ft with 2 Turns (QC): 6 Walk 150 ft (QC): 6 Walking 10ft on Uneven Surface: 6 1 Step (curb) (QC): 6 4 Steps (QC): 6 12 Steps (QC): 6 Picking up an Object (QC): 6 Wheel 50 feet with 2 turns (QC: 9 Wheel 150 feet: 9 PT Plan Problem List Problem List: Activity Tolerance, Functional Strength, Safety, Balance, Gait, Transfer, Bed Mobility, ROM Treatment/Plan Treatment Plan: Continue Plan of Care Treatment Plan: Bed Mobility, Education, Functional Activity Rolando, Functional Strength, Group Therapy, Gait, Safety, Therapeutic Exercise, Transfers Treatment Duration: May 22, 2022 Frequency: At least 5 of 7 days/Wk (IRF) Estimated Hrs Per Day: 1.5 hours per day Patient and/or Family Agrees t: Yes Safety Risks/Education Patient Education: Gait Training, Transfer Techniques, Steps, Correct Positioning, Safety Issues Teaching Recipient: Patient Teaching Methods: Demonstration, Discussion Response to Teaching: Reinforcement Needed Discharge Recommendations Plan Patient will perform bed mobility and transfer training, balance and endurance training, functional strengthening, stair training, gait training, and education, to improve functional mobility and independence at home. Therapy Discharge Recommendati: Home & Family, Post Acute PT Time/GCodes Time In: 1300 Time Out: 1345 Total Billed Treatment Time: 45 Total Billed Treatment 1 visit EVL 10' FA 25' (only charge 1 unit) PT eval from [id number], OT eval from [id number], co-treat from [id number] JUAN MANUEL CAMPOS PT May 01, 2022 14:04
--- NOTE | 2022-05-01 14:38 | Physical Therapy Daily Note ---
PT Daily Note-Current Subjective Delightful interesting patient agrees to Rx. Shares his experience leading up to the CABG, SOB extreme fatigue, cardiac cath and ultimately CABG x3. Pt. happy to report he has no pain anywhere . Pt. states his goals are to get out of here and get back to the casinos. Pain Location: No Pain Reported Mental Status Patient Orientation: Normal For Age Transfers SCALE: Activities may be completed with or without assistive devices. 1-Eekkrrhgyu-vwchpki completes the activity by him/herself with no assistance from a helper. 5-Set-up or Clean-up Assistance-helper sets up or cleans up; patient completes activity. [place] assists only prior to or following the activity. 4-Supervision or Touching Assistance-helper provides verbal cues and/or touching/steadying and/or contact guard assistance as patient completes activity. Assistance may be provided throughout the activity or intermittently. 3-Partial/Moderate Assistance-helper does LESS THAN HALF the effort. [place] lifts, holds or supports trunk or limbs, but provides less than half the effort. 2-Substantial/Maximal Assistance-helper does MORE THAN HALF the effort. [place] lifts or holds trunk or limbs and provides more than half the effort. 6-Uanvjpbny-uvwbjw does ALL the effort. Patient does none of the effort to complete the activity. Or, the assistance of 2 or more helpers is required for the patient to complete the activity. If activity was not attempted, code reason: 7-Patient Refused. 9-Not Applicable-not attempted and the patient did not perform the activity before the current illness, exacerbation or injury. 10-Not Attempted due to Environmental Limitations-(lack of equipment, weather restraints, etc.). 88-Not Attempted due to Medical Conditions or Safety Concerns. Sit to Stand (QC): 6 does not use hands to stand, good control, Gait Training Does the Patient Walk?: Yes Gait Assistive Device: None [id number] no AD SBA /indep,no LOB, staggering or veering noted , equal step length and slow steady velocity Exercises NuStep Minutes: 15 NuStep Workload: 2 Treatments gait as above, standing dynamic exercise for arm ergom with OT, standing at sink for face and dental care all mod I, Nustep using LE only, leg presses on Nustep x 12. Assessment Current Status: Good Progress delightful, motivated patient with supportive present family PT Short Term Goals Short Term Goals Time Frame: May 08, 2022 Roll Left & Right: 6 Sit to lyin Lying to sitting on side of be: 6 Sit to stand: 4 (SBA) Chair/rht-zh-vcopb transfer: 4 (SBA) Walk 10 feet: 4 (SBA) Walk 50 feet with two turns: 4 (SBA) Walk 150 feet: 4 (SBA) PT Dental Hygienist Mobile Coordinator Goals Assisted Goals PT Dental Hygienist Mobile Coordinator Goals Time Frame: May 22, 2022 Roll Left & Right (QC): 6 Sit to Lying (QC): 6 Lying-Sitting on Side/Bed(QC): 6 Sit to Stand (QC): 6 Chair/Dvg-gz-Sufip Xfer(QC): 6 Toilet Transfer (QC): 6 Car Transfer (QC): 6 Does the Patient Walk: Yes Walk 10 feet (QC): 6 Walk 50ft with 2 Turns (QC): 6 Walk 150 ft (QC): 6 Walking 10ft on Uneven Surface: 6 1 Step (curb) (QC): 6 4 Steps (QC): 6 12 Steps (QC): 6 Picking up an Object (QC): 6 Wheel 50 feet with 2 turns (QC: 9 Wheel 150 feet: 9 PT Plan Treatment/Plan Treatment Plan: Continue Plan of Care Treatment Plan: Bed Mobility, Education, Functional Activity Rolando, Functional Strength, Group Therapy, Gait, Safety, Therapeutic Exercise, Transfers Treatment Duration: May 22, 2022 Frequency: At least 5 of 7 days/Wk (IRF) Estimated Hrs Per Day: 1.5 hours per day Patient and/or Family Agrees t: Yes Safety Risks/Education Patient Education: Gait Training, Transfer Techniques, Reviewed Precautions (UEs), Correct Positioning, Safety Issues Teaching Recipient: Patient Teaching Methods: Demonstration, Discussion Response to Teaching: Verbalize Understanding, Return Demonstration, Reinforcement Needed Time/GCodes Time In: 1345 Time Out: 1440 Total Billed Treatment Time: 55 Total Billed Treatment 1,FA25m,GT15m,EX15m SHINE MEDINA ORCHESTRATOR May 01, 2022 14:38
--- NOTE | 2022-05-01 14:39 | Occupational Therapy Eval ---
OT Evaluation-General/PLF Medical Diagnosis Admission Date May 01, 2022 at 13:00 Medical Diagnosis: CABG x 3 Onset Date: Apr 25, 2022 Therapy Diagnosis Therapy Diagnosis: reduced endurance Precautions Precautions/Isolations: Standard Precautions Weight Bear Status Weight Bearing Restriction: Non Weight Bearing Sternal precautions, NWB through UE's Pt may shower, pat incision dry No lifting >10 pounds Referral Physician: Adelaida Orozco DO Referral Reason: Evaluation/Treatment Medical History Pertinent Medical History: CAD, DM, HTN, Neuropathy Current History Pt s/p CABG x3. Per patient, he lives with his spouse in a multilevel home. Bath/shower located on second floor. Pt was indep with adls and shared iadl responsibilities with his . He was not using any AD prior to surgery. 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 Social History Home: Multilevel Current Living Status: Spouse Entry Into Home: Stairs With Railing Steps Into Home: 3 ADL-Prior Level of Function SCALE: Activities may be completed with or without assistive devices. 4-Nxewvzszrs-fcwbhas completes the activity by him/herself with no assistance from a helper. 5-Set-up or Clean-up Assistance-helper sets up or cleans up; patient completes activity. [place] assists only prior to or following the activity. 4-Supervision or Touching Assistance-helper provides verbal cues and/or touching/steadying and/or contact guard assistance as patient completes activity. Assistance may be provided throughout the activity or intermittently. 3-Partial/Moderate Assistance-helper does LESS THAN HALF the effort. [place] lifts, holds or supports trunk or limbs, but provides less than half the effort. 2-Substantial/Maximal Assistance-helper does MORE THAN HALF the effort. [place] lifts or holds trunk or limbs and provides more than half the effort. 4-Rqdhvzbpi-ljjtxn does ALL the effort. Patient does none of the effort to complete the activity. Or, the assistance of 2 or more helpers is required for the patient to complete the activity. If activity was not attempted, code reason: 7-Patient Refused. 9-Not Applicable-not attempted and the patient did not perform the activity before the current illness, exacerbation or injury. 10-Not Attempted due to Environmental Limitations-(lack of equipment, weather restraints, etc.). 88-Not Attempted due to Medical Conditions or Safety Concerns. Self Care: Independent Functional Cognition: Independent DME/Equipment: Bath Bench, Tub/Shower Drive Self: Yes OT Current Status Subjective Pt denies pain, agreeable to evaluation. Co-treat with PT for part of tx due to poor patient mobility, sternal precautions, safety and to reduce risk of falls. Appearance Pt returned to sitting in chair, all needs within reach. Mental Status/Objective Patient Orientation: Person, Place, Situation Current Glasses/Contacts: Yes Hearing Aids: No Dentures/Partials: No Hand Dominance: Right Upper Extremity ROM Bilateral shoulders limited to 90 degrees secondary to sternal precautions. Upper Extremity Strength Not formally tested secondary to sternal precautions. Anticipate WNL for light adl activities ADL-Treatment Eating (QC): 6 Oral Hygiene (QC): 6 Shower/Bathe Self (QC): 7 Upper Body Dressing (QC): 10 Lower Body Dressing (QC): 6 On/Off Footwear (QC): 6 Toileting Hygiene (QC): 7 Pt ambulated >300 feet several times throughout treatment. No AD, supervision for safety only. Mild SOB notable with increased activity.Intermittent cues for hand placement during transfers (pushing from legs vs armrests). Pt donned bilateral socks and pants without difficulty. Education on sternal precautions and not extending both arms behind back during clothing management. Upper body dressing not assessed as pt did not have any upper body clothing available at time of eval. OT did educate pt on compensatory method in order maintain adherence to sternal precautions. He stood to complete all grooming tasks, no signs of unsteadiness or safety concerns. Pt reports mild fatigue at end of adls but recovers quickly with a short seated rest break. Pt stood to complete arm bike x4 minutes. Focus on improving cardiovascular health, balance, and overall endurance. No resistance added. Good tolerance throughout. Pt also completed NuStep, legs only. During activity, OT educated pt on energy conservation strategies and modifications/adaptations to home environment and IADLs in order to maintain sternal precautions post discharge. This included: kitchen/bathroom set up with his /family moving common used items to counter/low height. Education OT Patient Education: Correct positioning, Energy conservation, Exercise program, Modified ADL techniques, Progress toward Goal/Update tx plan, Purpose of tx/functional activities, Reviewed precautions, Rehab process, Safety issues, Transfer techniques Teaching Recipient: Patient Teaching Methods: Demonstration, Discussion Response to Teaching: Verbalize Understanding, Return Demonstration OT Short Term Goals Short Term Goals Time Frame: May 03, 2022 Eatin Oral hygiene: 6 Toileting hygiene: 5 Shower/bathe self: 4 Upper body dressin Lower body dressin Putting on/taking off footwear: 6 OT Fdc Goals Binder Caser Goals Time Frame: May 07, 2022 Eating (QC): 6 Oral Hygiene (QC): 6 Toileting Hygiene (QC): 6 Shower/Bathe Self (QC): 6 Upper Body Dressing (QC): 6 Lower Body Dressing (QC): 6 On/Off Footwear (QC): 6 1=Demonstrate adherence to instructed precautions during ADL tasks. 2=Patient will verbalize/demonstrate understanding of assistive devices/modifications for ADL. 3=Patient will improve strength/tolerance for activity to enable patient to perform ADL's. OT Education/Plan Problem List/Assessment Assessment: Decreased Activ Tolerance, Decreased UE Strength, Edema, Impaired I ADL's, Impaired Self-Care Skills, Restricted Funct UE ROM Discharge Recommendations Plan/Recommendations: Continue POC Therapy Discharge Recommendati: Home & Family Treatment Plan/Plan of Care Treatment,Training & Education: Yes Patient would benefit from OT for education, treatment and training to promote independence in ADL's, mobility, safety and/or upper extremity function for ADL's. Plan of Care: ADL Retraining, Functional Mobility, Group Exercise/Act as Ind, UE Funct Exercise/Act Treatment Duration: May 07, 2022 Frequency: At least 5 of 7 days/Wk (IRF) Estimated Hrs Per Day: 1.5 hours per day (75-90 min/day ) Agreement: Yes Rehab Potential: Fair Time/GCodes Start Time: 13:10 Stop Time: 14:40 Total Time Billed (hr/min): 90 Billed Treatment Time 1 visit EVL (10 min) ADL x2 (35 min) FA x2 (25 min) EX (20 min) Iris Garcia OT May 01, 2022 14:39
--- NOTE | 2022-05-01 15:54 | PM&R Post Admission Assessment ---
PM&R HP Date of Visit: May 01, 2022 Time of Visit: 16:30 History of Present Illness CC: Debility following CABG HPI: This is a 77 yr old male, clinic pt of Dr. Kaye. He is status post coronary bypass graft, 3 vessels on 04/[address] Brown. Pt has a history of afib. Pt had acute blood loss anemia and two units were given. Resulted in hemoglobin of 12.7. He did have hypoxia. He also has a history of hyperlipidemia neuropathy. Currently he is requiring a sit to stand. Prior level of functioning was independent without assisted devices. He will need close monitoring and aggressive rehab. Past Xjhiozo-Wdhbvu-Hnkzvk Hx Past Med/Social Hx: Reviewed Nursing Past Med/Soc Hx, Reviewed and Corrections made Patient Social History Marrital Status: Employed/Student: retired Alcohol Use: Denies Use Smoking Status: Former Smoker Immunizations Up To Date Date of Pneumonia Vaccine: Sep 10, 2011 Date of Influenza Vaccine: Jul 11, 2012 Past Medical History Surgeries: CABG, Open Heart Surgery Respiratory: COPD Cardiac: Chronic Edema/Swelling, Coronary Artery Disease, High Cholesterol, Hypertension Neurological: Neuropathy Reproductive: No Genitourinary: Benign Prostatic Hyperpl Gastrointestinal: Gastroesophageal Reflux Musculoskeletal: Chronic Back Pain Endocrine: Diabetes, Insulin dep Hearing Impairment: Hard of Hearing Prior Level of Function Bed Mobility: 6 Transfers: 6 Gait: 6 Stairs: 6 Indoor Mobility (Ambulation): Independent Stairs: Independent Self Care: Independent Functional Cognition: Independent Drive Self: Yes Current Level of Fuctioning Roll Left to Right: 4 Sit to Lyin Lying to Sitting/Side of Bed: 4 Sit to Stand: 6 Chair/Dpd-cw-Jzlwe Xfer: 4 Car Transfer: 4 Does the Patient Walk: Yes Mode of Locomotion: Walk Anticipated Mode of Locomotion: Walk Walk 10 feet: 4 Walk 50 ft with 2 Turns: 4 Walk 150 ft: 4 Walking 10ft on uneven surface: 4 Gait Assistive Device: None Wheel 50 ft with 2 turns: 9 Wheel 150 ft: 9 #of Steps: 4 1 Step (curb): 4 4 Steps: 4 12 Steps: 88 Picking up an Object: 4 (CGA using a environmental services lead) Eatin Oral Hygiene: 6 Shower/Bathe Self: 7 Upper Body Dressin Lower Body Dressin On/Off Footwear: 6 Toileting Hygiene: 7 PM&R Allergy/Meds/Data Review Allergies Coded Allergies: No Known Drug Allergies (Unverified , 09/10/12) Home Medications Scheduled Aspirin (Aspirin EC), 81 MG PO DAILY, (Reported) Atorvastatin Calcium (Atorvastatin Calcium), 40 MG PO HS, (Reported) Finasteride (Finasteride), 5 MG PO HS, (Reported) Furosemide (Furosemide), 40 MG PO DAILY, (Reported) Gabapentin (Neurontin), 300 MG PO TID, (Reported) Insulin Glargine,Hum.rec.anlog (Lantus), 20 UNIT SQ 2100, (Reported) Insulin Lispro (Humalog), 2 UNIT SQ TIDAC, (Reported) Insulin Lispro (Humalog), UNIT SQ ACHS, (Reported) Metoprolol Tartrate (Metoprolol Tartrate), 6.25 MG PO BID WITH MEALS, (Reported) Omeprazole (Omeprazole), 40 MG PO DAILY, (Reported) Potassium Chloride (Potassium Chloride), 20 MEQ PO DAILY, (Reported) Tamsulosin HCl (Flomax), 0.4 MG PO HS, (Reported) Discontinued Medications Albuterol Sulfate (Ventolin Hfa), 2 PUFF INH Q4H PRN for SHORTNESS OF BREATH, (Reported) Discontinued Reason: No Longer Taking Aspirin (Aspirin Ec 81 Mg), 81 MG PO DAILY, (Reported) Discontinued Reason: Duplicate Order Atorvastatin (Lipitor 20MG), 1 EACH PO DAILY, (Reported) Discontinued Reason: Duplicate Order Enalapril Maleate (Enalapril Maleate), 10 MG PO DAILY, (Reported) Discontinued Reason: Duplicate Order Gabapentin (Neurontin), 300 MG PO DAILY, (Reported) Discontinued Reason: Duplicate Order Glimepiride (Glimepiride), 6 MG PO DAILY, (Reported) Discontinued Reason: Duplicate Order Linagliptin (Tradjenta), 5 MG PO DAILY, (Reported) Discontinued Reason: Duplicate Order Omeprazole (Omeprazole), 40 MG PO DAILY, (Reported) Discontinued Reason: Duplicate Order Tizanidine Hcl (Tizanadine Hcl), 4 MG PO TID, (Reported) Discontinued Reason: Duplicate Order Current Medications Current Medications Reviewed Laboratory Data Laboratory Tests 05/01/22 15:29: Glucometer 280H Review of Systems Constitutional: see HPI, malaise, weakness EENTM: no symptoms reported Respiratory: dyspnea on exertion Cardiovascular: chest pain Gastrointestinal: no symptoms reported Genitourinary: no symptoms reported Musculoskeletal: no symptoms reported Skin: no symptoms reported Psychiatric/Neurological: No Symptoms Reported All Other Systems Reviewed Negative Unless Noted: Yes Physical Exam Physical Exam Vital Signs Vital Signs - First Documented 05/01/22 13:00 Temp 36.0 Pulse 63 Resp 20 B/P (MAP) 128/83 (98) Pulse Ox 95 O2 Delivery Room Air Capillary Refill : Height, Weight, BMI Height: '" Weight: lbs. oz. kg; 27.83 BMI Method: General Appearance: No Apparent Distress, WD/WN, Chronically ill Eyes: Bilateral Eye Normal Inspection, Bilateral Eye PERRL HEENT: PERRL/EOMI, Normal ENT Inspection, Pharynx Normal Neck: Full Range of Motion, Normal Inspection, Non Tender, Supple, Carotid Bruit Respiratory: Chest Non Tender, Lungs Clear, No Accessory Muscle Use, No Respiratory Distress, Decreased Breath Sounds Cardiovascular: Regular Rate, Rhythm, No Edema, No Gallop, No JVD, No Murmur, Normal Peripheral Pulses Gastrointestinal: Normal Bowel Sounds, No Organomegaly, No Pulsatile Mass, Non Tender, Soft Back: Normal Inspection, No CVA Tenderness, No Vertebral Tenderness Extremity: Normal Capillary Refill, Normal Inspection, Normal Range of Motion, Non Tender, No Calf Tenderness, No Pedal Edema Neurologic/Psychiatric: Alert, Oriented x3, No Motor/Sensory Deficits, Normal Mood/Affect, Motor Weakness (generalized) Skin: Normal Color, Warm/Dry Lymphatic: No Adenopathy PM&R Medical Assessment & Plan REHAB/MEDICAL ASSESSMENT AND PLAN: REHAB IMPAIRMENT GROUP: CABG ETIOLOGIC DIAGNOSIS: CABG The comorbidities that impact the patients function and/or functional outcome by: complex CABG, COPD, DM, HTN, advanced age REHAB PLAN: The patient is being admitted to our comprehensive inpatient rehabilitation facility and can tolerate the intensity of service consisting of at least: 180 minutes of therapy a day, 5 out of 7 days a week Rehab treatment will consist of: PT OT will both focus on regaining independence with use of assistive devices and enable patient to return home with spouse The patient/family has a good understanding of our discharge process and will benefit from an interdisciplinary inpatient rehabilitation program. The patient has potential to make improvement and is in need of at least two of the following multidisciplinary therapies including but not limited to physical, occupational, speech, and prosthetics and orthotics. Additionally the patient will need services from respiratory, nutritional services, wound care, psychology, etc. (Customize this to each patient). Given the patients complex condition and risk of further medical complications, rehabilitation services cannot be safely or effectively provided at a lower level of care such as a intermediate facility. BARRIERS TO DISCHARGE: CAD complexity ESTIMATED LOS: 7 days DISPOSITION: Home RELEVANT CHANGES SINCE PREADMISSION SCREENING: I have compared the patients medical and functional status at the time of the p readmission screening and there are: no changes PROGNOSIS: Fair REHABILITATION GOALS: 1. PT OT will both focus on regaining independence with use of assistive devices and enable patient to return home with spouse All the above goals were reviewed with the patient and he/she is in agreement. By signing this document, I acknowledge that I have personally performed a full physical examination on this patient within 24 hours of admission to this inpatient rehabilitation facility and have determined the patient to be able to tolerate the above course of treatment at an intensive level for a reasonable period of time. I will be completing a detailed individualized Plan of Care for this patient by day #4 of the patients stay based upon the Preadmission Screen, the Post-Admission Evaluation, and the therapy evaluations. Admission Dx/Comorbidities: (1) CAD (coronary artery disease) ICD Codes: I25.10 - Atherosclerotic heart disease of [place] coronary artery without angina pectoris (2) A-fib ICD Codes: I48.91 - Unspecified atrial fibrillation (3) HTN (hypertension) ICD Codes: I10 - Essential (primary) hypertension (4) COPD (chronic obstructive pulmonary disease) ICD Codes: J44.9 - Chronic obstructive pulmonary disease, unspecified (5) S/P CABG (coronary artery bypass graft) ICD Codes: Z95.1 - Presence of aortocoronary bypass graft Assessment/Plan Assessment and Plan Assess & Plan/Chief Complaint Assessment: s/p CABG COPD HTN HLP DM CKD AF Plan: Monitor O2 Pain control Monitor sugar PT OT CHRIS ROE DO May 01, 2022 15:54
[2022-05-01] MEDS: inSUlin ASPART (NovoLOG) 1 UNIT/0.01 ML (CHARGE PER UNIT) SC SCH ×3 (16:26→20:36)
[2022-05-01] MEDS ORDERED: INSULIN LISPRO 2 UNIT SQ SCH (17:00)
[2022-05-01 18:18] VITALS: BP 148/75
[2022-05-01] MEDS: meTOprolol TARTRATE 25 MG (LOPRESSOR) TABLET PO SCH (18:18)
[2022-05-01] MEDS: FINASTERIDE (PROSCAR) 5 MG TAB PO SCH (20:00)
[2022-05-01] MEDS: GABAPENTIN 300 MG (NEURONTIN) CAP PO SCH (20:00)
[2022-05-01] MEDS: TAMSULOSIN 0.4 MG (FLOMAX) CAP PO SCH (20:00)
[2022-05-01 20:02] VITALS: BP 132/64
[2022-05-01] MEDS: DOCUSATE SODIUM 100 MG (COLACE) CAP PO SCH (20:11)
[2022-05-01] MEDS: polyethylene glycoL POWDER 17 GM (MIRALAX) PACK PO SCH (20:11)
[2022-05-01] MEDS: SENNA W/DOCUSATE (SENOKOT S) TABLET PO SCH (20:11)
[2022-05-01] MEDS ORDERED: NON-FORMULARY MEDICATION 1 EA EA (Insulin Glargine,Hum.rec.anlog (Lantus) 20 UNIT) SQ SCH (21:00)
--- NOTE | 2022-05-02 06:08 | Individualized Plan of Care ---
Individualized Plan of Care Rehab Nursing IPOC Order Admission Date May 01, 2022 at 13:00 Current Orders Orders Admission Order(Inpt,Obs,Sdc) (05/01/22 10:32) Vital Signs: Per Unit Policy ( 08,16,00 (05/01/22 10:32) Damian Doss , (05/01/22 10:32) Sequential Compression Device (05/01/22 10:32) Microsystems Engineer-Inpt Rehab Con (05/01/22 10:32) Rehab Nursing Orders-Ipoc (05/01/22 10:32) Physical Therapy Rehab Orders (05/01/22 10:32) Occupational Therapy Rehab Ord (05/01/22 10:32) Speech Therapy Rehab Orders (05/01/22 10:32) Cbc With Automated Diff (05/02/22 06:00) Comprehensive Metabolic Panel (05/02/22 06:00) Precautions (Aru) (05/01/22 10:32) Weekly Weight WEEK (05/01/22 10:32) Rehab-Intensity Of Therapy (05/01/22 10:32) Initiate Admission Nursing Pro .admission (05/01/22 10:32) Alprazolam Tablet (Xanax Tablet) (05/01/22 10:45) Calcium Carbonate Chew Tablet (Antacid C (05/01/22 10:45) Diphenhydramine Tablet (Benadryl Tablet) (05/01/22 10:45) Docusate Sodium Capsule (Colace Capsule) (05/01/22 21:00) Docusate Sodium Capsule (Colace Capsule) (05/01/22 10:45) Bisacodyl Suppository (Dulcolax Supposit (05/01/22 10:45) Lactulose Oral Solution (Enulose Oral So (05/01/22 10:45) Na Phos/Na Biphos Enema (Fleet Enema Ronine (05/01/22 10:45) Guaifenesin/Codeine Syrup (Robitussin Ac (05/01/22 10:45) Loperamide Tablet (Imodium Tablet) (05/01/22 10:45) Melatonin Tablet (Melatonin Tablet) (05/01/22 10:45) Polyethylene Glycol Powder Pkt (Miralax (05/01/22 21:00) Ondansetron Oral Dissolve Tab (Zofran (05/01/22 10:45) Senna S Tablet (Senokot S Tablet) (05/01/22 21:00) Acetaminophen Tablet/Caplet (Tylenol T (05/01/22 10:45) Code/Resuscitation (05/01/22 10:32) Admission Arrival Bed Request (05/01/22 13:13) Aspirin Enteric Coated Tablet (Ecotrin T (05/02/22 09:00) Atorvastatin Tablet (Lipitor Tablet) (05/01/22 21:00) Finasteride Tablet (Proscar Tablet) (05/01/22 21:00) Furosemide Tablet (Lasix Tablet) (05/02/22 09:00) Gabapentin Capsule/Tablet (Neurontin Cap (05/01/22 21:00) Metoprolol Tartrate (Ir) Tab (Lopressor (05/01/22 18:00) Tamsulosin Capsule (Flomax Capsule) (05/01/22 21:00) (Nf) Insulin Glargine,Hum.Rec.Anlog (Herson (05/01/22 21:00) (Nf) Insulin Lispro (Humalog) (05/01/22 17:00) (Nf) Omeprazole (05/02/22 09:00) (Nf) Potassium Chloride (05/02/22 09:00) Accucheck Achs ACHS (05/01/22 14:11) Insulin Aspart (Novolog) (Novolog (Charg (05/01/22 16:00) Cho 90g/M 1snack (25-2900 Ronen) (05/01/22 Lunch) Patient Visit (05/01/22 ) Pt Eval Low Complexity (05/01/22 ) Functional Activities, Ea 15 (05/01/22 ) Patient Visit (05/01/22 ) Functional Activities, Ea 15 (05/01/22 ) Gait Training, Ea 15 Min (05/01/22 ) Exercise Therap, Ea 15 Min (05/01/22 ) Insulin Aspart (Novolog) (Novolog (Charg (05/01/22 17:00) Pantoprazole Tablet (Protonix Tablet) (05/02/22 09:00) Potassium Chloride (Tablet) (K Dur Table (05/02/22 07:00) Insulin Determir (Per Unit) (Levemir (Pe (05/01/22 21:00) Incentive Spirometry (Nursing) Q2H (05/01/22 15:08) Nursing Communication (Order) (05/01/22 15:08) Request Ot Additional Orders (05/01/22 15:08) Request Pt Additional Orders (05/01/22 15:08) Fluid Restriction (05/01/22 15:24) Consult Cardiology (05/01/22 20:44) Echo W Doppler/Color Flow (05/02/22 08:04) Ekg Tracing (05/02/22 08:04) Follow-Up Appointment D/C (05/02/22 11:18) Patient Visit (05/02/22 ) Speech Sound Lang Comp (05/02/22 ) Treat. Speech/Lang/Voice (05/02/22 ) Transfer - Bed/Room/Location (05/02/22 13:19) Patient Visit (05/02/22 ) Exercise Therap, Ea 15 Min (05/02/22 ) Functional Activities, Ea 15 (05/02/22 ) Rehab Nursing Orders: Ongoing Assess. of Function Status, Bladder Management, Bladder Scan, Bladder Training, Bowel Management, Bowel Training, Disease Management & Educaiton, DVT Prophylaxis, Fall Prevention, Fluid/Electrolyte/Nutrition Mgmt, Infection Prevention, Medication Management & Education, Management of Risks & Complications, Management of Skin Intergrity, Nutrition Management, Pain Management, Patient/Family Support, Safety Management, Wound Management Intensity of Therapy to be met Patient to be seen: Min.3h per day/5 of 7d PT IPOC Problem List: Activity Tolerance, Functional Strength, Safety, Balance, Gait, Transfer, Bed Mobility, ROM Treatment Plan: Continue Plan of Care Bed Mobility, Education, Functional Activity Rolando, Functional Strength, Group Therapy, Gait, Safety, Therapeutic Exercise, Transfers Treatment Duration: May 22, 2022 Frequency: At least 5 of 7 days/Wk (IRF) Estimated Hrs Per Day: 1.5 hours per day OT IPOC Problems: Decreased Activ Tolerance, Decreased UE Strength, Edema, Impaired I ADL's, Impaired Self-Care Skills, Restricted Funct UE ROM OT Treatment, Training and Edu: Yes Plan of Care: ADL Retraining, Functional Mobility, Group Exercise/Act as Ind, UE Funct Exercise/Act Treatment Duration: May 07, 2022 Frequency: At least 5 of 7 days/Wk (IRF) Estimated Hrs Per Day: 1.5 hours per day (75-90 min/day ) ST IPOC Speech Therapy Treatment Plan: Discontinue ST Treatment Duration: May 02, 2022 Frequency: Modified Program (IRF) Estimated Hrs Per Day: Other Microsystems Engineer/Case Mgmt Microsystems Engineer/Case Managemen: Discharge Planning Dietitian/Sports Team Manager Dietitian/Sports Team Manager to monitor nutritional status and make changes and/or recommendations as needed and work with speech pathology on dietary upgrades as the occur. Physician IPOC Medical Issues being managed closely and that require the 24 hour availability of a physician: Patient will require close monitoring due to recent CABG and subsequent weakness/myopathy and will require Cardiology monitoring in order to prevent decompensation Medical Issues: Bowel/Bladder Function, DVT Prophylaxis, Falls Precautions, Fluid/Electrolyte/Nutrition Balance, Infection Protection, Pain Management Brief Synthesis of Preadmission Screen, Post-Admission Evaluation, and Therapy Evaluations: PT OT will focus on regaining function with use of assistive devices in order to return home with Medical Prognosis: Good Anticipated Length of Stay: 5 days CHRIS ROE DO May 02, 2022 06:08
--- NOTE | 2022-05-02 06:08 | PM&R Progress Note ---
Subjective HPI/CC On Admission Date Seen by Provider: May 02, 2022 Time Seen by Provider: 12:30 Subjective/Events-last exam 05/02/2022: Pt moved to independent room Discharge planned for Friday Bowels are loose Dr. Spears was consulted Echocardiogram is pending Review of Systems General: Fatigue Pulmonary: Dyspnea Objective Exam Vital Signs Vital Signs Date Time Temp Pulse Resp B/P (MAP) Pulse Ox O2 Delivery O2 Flow Rate FiO2 05/02/22 20:02 36.9 67 20 104/59 (74) 94 Room Air Capillary Refill : General Appearance: No Apparent Distress, WD/WN, Chronically ill HEENT: PERRL/EOMI, Normal ENT Inspection, Pharynx Normal Neck: Full Range of Motion, Normal Inspection, Non Tender, Supple, Carotid Bruit Respiratory: Chest Non Tender, Lungs Clear, No Accessory Muscle Use, No Respiratory Distress, Decreased Breath Sounds Cardiovascular: Regular Rate, Rhythm, No Edema, No Gallop, No JVD, No Murmur, Normal Peripheral Pulses Gastrointestinal: Normal Bowel Sounds, No Organomegaly, No Pulsatile Mass, Non Tender, Soft Back: Normal Inspection, No CVA Tenderness, No Vertebral Tenderness Extremity: Normal Capillary Refill, Normal Inspection, Normal Range of Motion, Non Tender, No Calf Tenderness, No Pedal Edema Neurologic/Psychiatric: Alert, Oriented x3, No Motor/Sensory Deficits, Normal Mood/Affect, Motor Weakness (generalized) Skin: Normal Color, Warm/Dry Lymphatic: No Adenopathy Results/Procedures Lab Laboratory Tests 05/02/22 06:21 Patient resulted labs reviewed. FIM Transfers Therapy Code Descriptions/Definitions Functional [place] Measure: 0=Not Assessed/NA 4=Minimal Assistance 1=Total Assistance 5=Supervision or Setup 2=Maximal Assistance 6=Modified [place] 3=Moderate Assistance 7=Complete IndependenceSCALE: Activities may be completed with or without assistive devices. 6-Gflheiqgih-frypovq completes the activity by him/herself with no assistance from a helper. 5-Set-up or Clean-up Assistance-helper sets up or cleans up; patient completes activity. [place] assists only prior to or following the activity. 4-Supervision or Touching Assistance-helper provides verbal cues and/or touching/steadying and/or contact guard assistance as patient completes a ctivity. Assistance may be provided throughout the activity or intermittently. 3-Partial/Moderate Assistance-helper does LESS THAN HALF the effort. [place] lifts, holds or supports trunk or limbs, but provides less than half the effort. 2-Substantial/Maximal Assistance-helper does MORE THAN HALF the effort. [place] lifts or holds trunk or limbs and provides more than half the effort. 1-Ooawcrnir-ewtvvv does ALL the effort. Patient does none of the effort to complete the activity. Or, the assistance of 2 or more helpers is required for the patient to complete the activity. If activity was not attempted, code reason: 7-Patient Refused. 9-Not Applicable-not attempted and the patient did not perform the activity before the current illness, exacerbation or injury. 10-Not Attempted due to Environmental Limitations-(lack of equipment, weather restraints, etc.). 88-Not Attempted due to Medical Conditions or Safety Concerns. Roll Left to Right (QC): 4 Sit to Lying (QC): 4 Sit to Stand (QC): 6 Chair/Ijd-df-Ugddl Xfer(QC): 4 Car Transfer (QC): 4 Gait Training Does the Patient Walk?: Yes Walk 10 feet (QC): 4 Walk 50 ft with 2 Turns(QC): 4 Walk 150 ft (QC): 4 Walking 10ft/uneven surface-QC: 4 Gait Assistive Device: None Wheelchair Training Wheel 50 ft with 2 turns (QC): 9 Wheel 150 ft (QC): 9 Stair Training #of Steps: 4 1 Step (curb) (QC): 4 4 Steps (QC): 4 12 Steps (QC): 88 Balance Picking up an Object (QC): 4 (CGA using a motorboat mechanic) ADL-Treatment Eating (QC): 6 Oral Hygiene (QC): 6 Shower/Bathe Self (QC): 7 Upper Body Dressing (QC): 10 Lower Body Dressing (QC): 6 On/Off Footwear (QC): 6 Toileting Hygiene (QC): 7 Assessment/Plan Assessment and Plan Assess & Plan/Chief Complaint Assessment: s/p CABG COPD HTN HLP DM CKD AF Plan: Monitor O2 Pain control Monitor sugar PT OT 05/02/2022: Supportive care Monitor pain (1) CAD (coronary artery disease) (2) A-fib (3) HTN (hypertension) (4) COPD (chronic obstructive pulmonary disease) (5) S/P CABG (coronary artery bypass graft) CHRIS ROE DO May 02, 2022 06:08
[2022-05-02] MEDS: inSUlin ASPART (NovoLOG) 1 UNIT/0.01 ML (CHARGE PER UNIT) SC SCH ×7 (06:19→21:25)
[2022-05-02] MEDS: KCL 20 MEQ TAB (K-DUR) PO SCH (06:25)
[2022-05-02 06:27] LABS: BASOPHILS % (AUTO) 0 % (0-10); EOSINOPHILS # (AUTO) 0.6 10^3/uL (0.0-0.3); EOSINOPHILS % (AUTO) 7 % (0-10); HEMATOCRIT 35 % (40-54); HEMOGLOBIN 11.7 g/dL (13.3-17.7); LYMPHOCYTES # (AUTO) 1.2 10^3/uL (1.0-4.0); LYMPHOCYTES % (AUTO) 13 % (12-44); MEAN CORPUSCULAR HEMOGLOBIN 29 pg (25-34); MEAN CORPUSCULAR HGB CONC 33 g/dL (32-36); MEAN CORPUSCULAR VOLUME 89 fL (80-99); MEAN PLATELET VOLUME 9.6 fL (9.0-12.2); MONOCYTES # (AUTO) 0.9 10^3/uL (0.0-1.0); MONOCYTES % (AUTO) 9 % (0-12); NEUTROPHILS # (AUTO) 6.4 10^3/uL (1.8-7.8); NEUTROPHILS % (AUTO) 70 % (42-75); PLATELET COUNT 248 10^3/uL (130-400); WHITE BLOOD COUNT 9.1 10^3/uL (4.3-11.0)
[2022-05-02 06:43] LABS: ALBUMIN 3.3 GM/DL (3.2-4.5); POTASSIUM 3.7 MMOL/L (3.6-5.0)
[2022-05-02 06:44] LABS: CALCIUM 8.5 MG/DL (8.5-10.1)
[2022-05-02 06:47] LABS: BILIRUBIN,TOTAL 1.2 MG/DL (0.1-1.0)
[2022-05-02 06:49] LABS: CREATININE SERUM 1.17 MG/DL (0.60-1.30)
[2022-05-02 07:21] VITALS: BP 118/66
[2022-05-02] MEDS: meTOprolol TARTRATE 25 MG (LOPRESSOR) TABLET PO SCH ×2 (08:18→18:21)
[2022-05-02] MEDS: ASPIRIN E.C. 81 MG (ECOTRIN) TAB PO SCH (08:18)
[2022-05-02] MEDS: FUROSEMIDE 40 MG (LASIX) TAB PO SCH (08:18)
[2022-05-02] MEDS: polyethylene glycoL POWDER 17 GM (MIRALAX) PACK PO SCH ×2 (08:19→21:00)
[2022-05-02] MEDS: DOCUSATE SODIUM 100 MG (COLACE) CAP PO SCH ×2 (08:19→21:00)
[2022-05-02] MEDS: PANTOPRAZOLE 40 MG (PROTONIX) TAB PO SCH (08:19)
[2022-05-02] MEDS: GABAPENTIN 300 MG (NEURONTIN) CAP PO SCH ×3 (08:19→21:24)
[2022-05-02] MEDS: SENNA W/DOCUSATE (SENOKOT S) TABLET PO SCH ×2 (08:20→21:00)
--- NOTE | 2022-05-02 08:30 | Occupational Ther Daily Note ---
OT Current Status-Daily Note Subjective Pt reports mild discomfort where chest tubes were removed. He declines wanting any pain meds. Appearance Pt left sitting up on the side of the bed, and RN in room at OT departure. Mental Status/Objective Patient Orientation: Person, Place, Situation ADL-Treatment Therapy Code Descriptions/Definitions Functional [place] Measure: 0=Not Assessed/NA 4=Minimal Assistance 1=Total Assistance 5=Supervision or Setup 2=Maximal Assistance 6=Modified [place] 3=Moderate Assistance 7=Complete IndependenceSCALE: Activities may be completed with or without assistive devices. 9-Fgbzopiazv-lorfwew completes the activity by him/herself with no assistance from a helper. 5-Set-up or Clean-up Assistance-helper sets up or cleans up; patient completes activity. Arion assists only prior to or following the activity. 4-Supervision or Touching Assistance-helper provides verbal cues and/or touching/steadying and/or contact guard assistance as patient completes activity. Assistance may be provided throughout the activity or intermittently. 3-Partial/Moderate Assistance-helper does LESS THAN HALF the effort. Arion lifts, holds or supports trunk or limbs, but provides less than half the effort. 2-Substantial/Maximal Assistance-helper does MORE THAN HALF the effort. Arion lifts or holds trunk or limbs and provides more than half the effort. 1-Ugkfyvnmh-dzwygk does ALL the effort. Patient does none of the effort to complete the activity. Or, the assistance of 2 or more helpers is required for the patient to complete the activity. If activity was not attempted, code reason: 7-Patient Refused. 9-Not Applicable-not attempted and the patient did not perform the activity before the current illness, exacerbation or injury. 10-Not Attempted due to Environmental Limitations-(lack of equipment, weather restraints, etc.). 88-Not Attempted due to Medical Conditions or Safety Concerns. Eating (QC): 6 Oral Hygiene (QC): 6 Shower/Bathe Self (QC): 5 Upper Body Dressing (QC): 5 Lower Body Dressing (QC): 6 On/Off Footwear: 6 Toileting Hygiene (QC): 6 Toilet Transfer (QC): 6 Shower performed; majority completed in sitting. Chest tube dressings covered prior to shower. C/D/I post task. Pt able to reach all body parts independently. No LOB or unsteadiness exhibited when standing to wash kendra area/buttocks. During shower, pt does report urgency to use toilet. He quickly dried body and ambulated short distance to toilet. Just prior to making it to toilet, pt incontinent of a small portion of stool on the floor. While sitting on the toilet, he independently wiped stool up from floor. OT applied bleach wipe to floor after pt was back in shower. Clothing donned seated on toilet. Post instruction on compensatory method for sternal precautions, pt was able to don shirt without assist. He independently donned pants and socks. Mild SOB notable following adls, but recovers quickly with a seated rest break. Other Treatment Pt participated in UE exercises with 2# dumbbell. Focus on improving cardiovascular health, strength and endurance needed for adls. In order to adhere to sternal precautions, All shoulder exercises modified to 90 degrees only with no simultaneous UE movement. Good tolerance throughout. 1x12. Pt also performed seated core exercises including modified sit up, marches, and knee ups, 1x10. 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 2=Patient will verbalize/demonstrate understanding of assistive devices/modifications for ADL. 3=Patient will improve strength/tolerance for activity to enable patient to perform ADL's. OT Education/Plan Problem List/Assessment Assessment: Decreased Activ Tolerance, Decreased UE Strength, Impaired I ADL's, Restricted Funct UE ROM Discharge Recommendations Plan/Recommendations: Continue POC Therapy Discharge Recommendati: Home & Family Treatment Plan/Plan of Care Treatment,Training & Education: Yes Patient would benefit from OT for education, treatment and training to promote independence in ADL's, mobility, safety and/or upper extremity function for ADL's. Plan of Care: ADL Retraining, Functional Mobility, Group Exercise/Act as Ind, UE Funct Exercise/Act Treatment Duration: May 07, 2022 Frequency: At least 5 of 7 days/Wk (IRF) Estimated Hrs Per Day: 1.5 hours per day (75-90 min/day ) Agreement: Yes Rehab Potential: Fair Time/GCodes Start Time: 07:20 Stop Time: 08:35 Total Time Billed (hr/min): 75 Billed Treatment Time 1 visit ADL x4 (55 min) EX (20 min) Iris Garcia OT May 02, 2022 08:30
[2022-05-02] MEDS ORDERED: NON-FORMULARY MEDICATION 1 EA EA (Omeprazole 40 MG) PO SCH (09:00)
[2022-05-02] MEDS ORDERED: NON-FORMULARY MEDICATION 1 EA EA (Potassium Chloride 20 MEQ) PO SCH (09:00)
--- NOTE | 2022-05-02 11:21 | Physical Therapy Daily Note ---
PT Daily Note-Current Subjective Patient sitting EOB pre tx, agrees to PT, has only mild incision pain on chest. Appearance Patient sitting EOB post tx with nurse call, phone, tray, all needs met. Mental Status Patient Orientation: Normal For Age Transfers SCALE: Activities may be completed with or without assistive devices. 7-Hwgwdcsvpk-ettnrii completes the activity by him/herself with no assistance from a helper. 5-Set-up or Clean-up Assistance-helper sets up or cleans up; patient completes activity. [place] assists only prior to or following the activity. 4-Supervision or Touching Assistance-helper provides verbal cues and/or to uching/steadying and/or contact guard assistance as patient completes activity. Assistance may be provided throughout the activity or intermittently. 3-Partial/Moderate Assistance-helper does LESS THAN HALF the effort. Campbell lifts, holds or supports trunk or limbs, but provides less than half the effort. 2-Substantial/Maximal Assistance-helper does MORE THAN HALF the effort. Campbell lifts or holds trunk or limbs and provides more than half the effort. 1-Jxusmkrku-jrrkgl does ALL the effort. Patient does none of the effort to complete the activity. Or, the assistance of 2 or more helpers is required for the patient to complete the activity. If activity was not attempted, code reason: 7-Patient Refused. 9-Not Applicable-not attempted and the patient did not perform the activity before the current illness, exacerbation or injury. 10-Not Attempted due to Environmental Limitations-(lack of equipment, weather restraints, etc.). 88-Not Attempted due to Medical Conditions or Safety Concerns. Sit to Stand (QC): 4 Chair/Bpl-it-Nxjrm Xfer(QC): 4 Gait Training Distance: 800'x2 Walk 10 feet (QC): 4 Walk 50 ft with 2 Turns(QC): 4 Walk 150 ft (QC): 4 Gait Persons Needed: 1 Gait Assistive Device: None slow ambulation, patient tends to hug the wall a little too closely on the left side and clip doors with his shoulder also Exercises Standing: Sit to Stand Standing Reps: 10 (3 sets) LAQ alternating for 5 min NuStep Minutes: 20 NuStep Workload: 4 Treatments transfers, ambulation, endurance training, LE strengthening Assessment Current Status: Fair Progress improving endurance, patient had a little difficulty with balance during sit to stands PT Short Term Goals Short Term Goals Time Frame: May 08, 2022 Roll Left & Right: 6 Sit to lyin Lying to sitting on side of be: 6 Sit to stand: 4 (SBA) Chair/tju-yk-cpusy transfer: 4 (SBA) Walk 10 feet: 4 (SBA) Walk 50 feet with two turns: 4 (SBA) Walk 150 feet: 4 (SBA) PT Computer Hardware Technician Goals Snf Goals PT Computer Hardware Technician Goals Time Frame: May 22, 2022 Roll Left & Right (QC): 6 Sit to Lying (QC): 6 Lying-Sitting on Side/Bed(QC): 6 Sit to Stand (QC): 6 Chair/Hip-nc-Nikmt Xfer(QC): 6 Toilet Transfer (QC): 6 Car Transfer (QC): 6 Does the Patient Walk: Yes Walk 10 feet (QC): 6 Walk 50ft with 2 Turns (QC): 6 Walk 150 ft (QC): 6 Walking 10ft on Uneven Surface: 6 1 Step (curb) (QC): 6 4 Steps (QC): 6 12 Steps (QC): 6 Picking up an Object (QC): 6 Wheel 50 feet with 2 turns (QC: 9 Wheel 150 feet: 9 PT Plan Problem List Problem List: Activity Tolerance, Functional Strength, Safety, Balance, Gait, Transfer, Bed Mobility, ROM Treatment/Plan Treatment Plan: Continue Plan of Care Treatment Plan: Bed Mobility, Education, Functional Activity Rolando, Functional Strength, Group Therapy, Gait, Safety, Therapeutic Exercise, Transfers Treatment Duration: May 22, 2022 Frequency: At least 5 of 7 days/Wk (IRF) Estimated Hrs Per Day: 1.5 hours per day Patient and/or Family Agrees t: Yes Safety Risks/Education Patient Education: Gait Training, Transfer Techniques, Correct Positioning, Safety Issues Teaching Recipient: Patient Teaching Methods: Demonstration, Discussion Response to Teaching: Reinforcement Needed Time/GCodes Time In: 1015 Time Out: 1130 Total Billed Treatment Time: 75 Total Billed Treatment 1 visit EX 40' FA 35' JUAN MANUEL CAMPOS PT May 02, 2022 11:21
--- NOTE | 2022-05-02 12:09 | ST Cognitive Linguistic Eval ---
Speech Evaluation-General Medical Diagnosis CABG x 3 Onset Date: Apr 25, 2022 Therapy Diagnosis Therapy Diagnosis: Intact Cognitive Linguistic Skills Precautions Precautions: Fall Precautions/Isolations: Fall Prevention, Standard Precautions Referral Referring Physician: Dr. Orozco Reason for Referral: Evaluation/Treatment Medical History Pertinent Medical History: CAD, DM, HTN, Neuropathy Current History The patient is a 77 yr old male with a past medical history of atrial fibrillation and hyperlipidemia, who is status post coronary bypass graft on 04/25/22. Reviewed History: Yes Social History Current Living Status: Spouse Speech PLF-Current Status Prior Level of Function The patient denied prior challenges with speech, language, or cognition. Subjective The patient was seated upright in bed, awake and alert upon entrance to his room by the clinician. The patient greeted the clinician appropriately and was agreeable to participation in the cognitive linguistic assessment. The patient's was at bedside and remained throughout the evaluation. Language Eval: Auditory Comprehends Simple Yes/No Ques: Functional Indent/Objects Multiple [place]: Functional Ident/Pics in Multiple [place]: Functional Follows 1-Step Commands: Functional Follows Complex Directions: Functional Follows General Conversations: Functional Language Eval: Verbal Language Completes Spontaneous Greeting: Functional Produces Auto, Serial Info: Functional Imitates Simple Words/Phrases: Functional Word Finding: Functional Requests Basic Needs: Functional States Basic Personal Info: Functional Expresses Complex Ideas: Functional Language Evaluation: Reading Follows Simple Written Direct: Functional Cognitive Patient Orientation The patient was independently oriented to self, location, month, day of week, date, and year. Objective Cognitive Domain Attention: WNL Memory: Mild Problem Solving: Functional Executive Functions: WNL Composite Severity Rating: WNL Clock Drawing Severity Rating: WNL Objective Formal/Standardized Tests [facility] Mental Status Examination (UMS Results The patient demonstrated a result of +28/30 on the SLUMS correlating to cognitive linguistic skills within normal limits. Oral Motor/Speech Production The patient does not display dysarthria or apraxia of speech. The patient is 100% intelligible in known and unknown contexts. Impression The patient demonstrated cognitive linguistic skills within normal limits. Speech Patient Assess Expression of Ideas/Wants: Expression (4) Understanding Verbal Content: Understands (4) Brief Interview-Mental Status: Yes Repetition of Three Words: Three (3) Temporal Orientation: Year: Correct (3) Temporal Orientation: Month: Accurate within 5 days(2) Temporal Orientation: Day: Correct (1) Recall : Wear to say "Sock": Yes, no cue required (2) Recall : Color: Yes, after cueing (1) Recall : Bed: Yes,after cueing (1) Memory/Recall Ability: Current season, That he or she is in a hsp/hsp unit Speech-Plan Treatment Plan Speech Therapy Treatment Plan: Discontinue ST Treatment Duration: May 02, 2022 Frequency: 1 time per week Estimated Hrs Per Day: .5 hour per day Rehab Potential: Fair Pt/Family Agrees to Plan: Yes Safety Risks/Education Teaching Recipient: Patient, Family Teaching Methods: Discussion Response to Teaching: Verbalize Understanding Education Topics Provided: Results of DANA, POC Time Speech Therapy Time In: 09:15 Speech Therapy Time Out: 09:45 Total Billed Time: 30 Billed Treatment Time 1, CHRISTINE GAVIRIA ELIZABETH ST May 02, 2022 12:08
--- NOTE | 2022-05-02 16:59 | Consultation-Cardiology ---
HPI-Cardiology Cardiology Consultation: Date of Consultation 05/02/22 Date of Admission 05/01/22 Attending Physician Andrey Kaye DO Admitting Physician Admitting Physician: Adelaida Orozco DO Attending Physician: Adelaida Orozco DO Consulting Physician MADDY HANDLEY JR, MD HPI: Time Seen by a Provider: 19:13 Chief Complaint: REASON FOR CONSULTATION: Coronary artery disease now status post coronary artery bypass surgery. I had the pleasure of seeing Dave on the inpatient rehabilitation unit at [facility] in [place], [place] today. He has been following with one of my partners, Dr. Srivastava. He recently underwent a cardiac catheterization and was found to have severe three-vessel coronary artery disease. He was subsequently transferred to [facility] for coronary artery bypass surgery. He was then transferred to our facility for inpatient rehabilitation. Prior to his cardiac catheterization, he was having exertional chest tightness that would happen after walking just 10-15 yards. He told his primary provider who then sent him to our office for a cardiology consultation with Dr. Srivastava. He subsequently underwent a stress test followed by a heart catheterization. When I saw him, he was resting comfortably in bed. His postsurgical pain is under good control. He denies dyspnea, paroxysmal nocturnal dyspnea, orthopnea, palpitations, lightheadedness, or syncope. He has mild bilateral ankle edema. Certain portions of this document may have been dictated utilizing voice recognition technology. Inherent to this technology, typographical and grammatical errors may exist. As much as I am diligent to identify and correct these mistakes, some errors may remain in the document. Review of Systems-Cardiology Review of Systems Other comments Review of 10 organ systems is as per the history of present illness, otherwise negative. All Other Systems Reviewed Negative Unless Noted: Yes CCL-Rytmdt-Oxdhtb Hx Patient Social History Marrital Status: Employed/Student: retired Smoking Status: Former Smoker Have you traveled recently?: No Alcohol Use?: No Pt feels they are or have been: No Immunizations Up To Date Date of Pneumonia Vaccine: Sep 10, 2011 Date of Influenza Vaccine: Jul 11, 2012 Past Medical History PMH As described under Assessment. Family Medical History Family Medical History: He does not report a family history of premature coronary artery disease. Allergies and Home Medications Allergies Coded Allergies: No Known Drug Allergies (Unverified , 11/8/12) Patient Home Medication List Home Medication List Reviewed: Yes Aspirin (Aspirin EC) 81 Mg Tablet.dr, 81 MG PO DAILY, (Reported) Entered as Reported by: LEANDRO MCADAMS on 05/01/221357 Last Action: Continued Atorvastatin Calcium (Atorvastatin Calcium) 40 Mg Tablet, 40 MG PO HS, (Reported) Entered as Reported by: SHAUN JOHNSON on 04/24/22834 Last Action: Continued Finasteride (Finasteride) 5 Mg Tablet, 5 MG PO HS, (Reported) Entered as Reported by: SHAUN JOHNSON on 04/24/22834 Last Action: Continued Furosemide (Furosemide) 40 Mg Tablet, 40 MG PO DAILY, (Reported) Entered as Reported by: LEANDRO MCADAMS on 05/01/221358 Last Action: Continued Gabapentin (Neurontin) 300 Mg Capsule, 300 MG PO TID, (Reported) Entered as Reported by: SHAUN JOHNSON on 04/24/22834 Last Action: Continued Insulin Glargine,Hum.rec.anlog (Lantus) 100 Unit/Ml Vial, 20 UNIT SQ 2100, (Reported) Entered as Reported by: LEANDRO MCADAMS on 05/01/221358 Last Action: Converted Insulin Lispro (Humalog) 100 Unit/Ml Vial, 2 UNIT SQ TIDAC, (Reported) Entered as Reported by: LEANDRO MCADAMS on 05/01/221357 Last Action: Converted Insulin Lispro (Humalog) 100 Unit/Ml Vial, UNIT SQ ACHS, (Reported) Entered as Reported by: LEANDRO MCADAMS on 05/01/221358 Last Action: Held Metoprolol Tartrate (Metoprolol Tartrate) 25 Mg Tablet, 6.25 MG PO BID WITH MEALS, (Reported) Entered as Reported by: LEANDRO MCADAMS on 05/01/221358 Last Action: Continued Omeprazole (Omeprazole) 40 Mg Capsule.dr, 40 MG PO DAILY, (Reported) Entered as Reported by: SHAUN JOHNSON on 04/24/22834 Last Action: Converted Potassium Chloride (Potassium Chloride) 20 Meq Tablet.er, 20 MEQ PO DAILY, (Reported) Entered as Reported by: LEANDRO MCADAMS on 05/01/221358 Last Action: Converted Tamsulosin HCl (Flomax) 0.4 Mg Cap, 0.4 MG PO HS, (Reported) Entered as Reported by: SHAUN JOHNSON on 04/24/22834 Last Action: Continued Discontinued Medications Albuterol Sulfate (Ventolin Hfa) 1 Puff Puff, 2 PUFF INH Q4H PRN for SHORTNESS OF BREATH, (Reported) Discontinued Reason: No Longer Taking Entered as Reported by: SHAUN JOHNSON on 04/24/22834 Last Action: Discontinued Exam Vital Signs Vital Signs Date Time Temp Pulse Resp B/P (MAP) Pulse Ox O2 Delivery O2 Flow Rate FiO2 05/02/22 18:19 61 120/62 (81) 05/02/22 09:00 Room Air 05/02/22 07:21 36.9 18 93 Physical Exam General: Alert. No acute distress. Well nourished and appears stated age. Eye: Extraocular movements are intact. Conjunctivae are clear. There are no xanthelasma. HENT: Normocephalic. Atraumatic. Carotid pulsations 2/2 without bruits. Neck: Jugular venous pressure does not appear elevated. No thyromegaly appreciated. Respiratory: Lungs are clear to auscultation. Respirations are non-labored. Breath sounds are equal. Symmetrical chest wall expansion. Cardiovascular: Normal rate. Regular rhythm. No murmur. No gallop. Point of maximal impulse is not appear displaced. Good pulses equal in all extremities. Trace bilateral pretibial edema. Gastrointestinal: Soft. Normal bowel sounds. Skin: Skin turgor is normal. There is no pallor. Musculoskeletal: No kyphosis or scoliosis appreciated. Neurologic: Alert and oriented to person, place, time. Cranial nerves 3-12 appear grossly intact. The patient has good motor tone strength in the upper and lower extremities bilaterally. Psychiatric: Cooperative. Appropriate mood & affect. Labs Laboratory Tests Test 05/01/22 20:17 05/02/22 05:58 05/02/22 06:21 05/02/22 10:56 Range/Units Glucometer 182 H 100 181 H 70-110 MG/DL White Blood Count 9.1 4.3-11.0 10^3/uL Red Blood Count 3.98 L 4.30-5.52 10^6/uL Hemoglobin 11.7 L 13.3-17.7 g/dL Hematocrit 35 L 40-54 % Mean Corpuscular Volume 89 80-99 fL Mean Corpuscular Hemoglobin 29 25-34 pg Mean Corpuscular Hemoglobin Concent 33 32-36 g/dL Red Cell Distribution Width 13.1 10.0-14.5 % Platelet Count 248 130-400 10^3/uL Mean Platelet Volume 9.6 9.0-12.2 fL Immature Granulocyte % (Auto) 1 % Neutrophils (%) (Auto) 70 42-75 % Lymphocytes (%) (Auto) 13 12-44 % Monocytes (%) (Auto) 9 0-12 % Eosinophils (%) (Auto) 7 0-10 % Basophils (%) (Auto) 0 0-10 % Neutrophils # (Auto) 6.4 1.8-7.8 10^3/uL Lymphocytes # (Auto) 1.2 1.0-4.0 10^3/uL Monocytes # (Auto) 0.9 0.0-1.0 10^3/uL Eosinophils # (Auto) 0.6 H 0.0-0.3 10^3/uL Basophils # (Auto) 0.0 0.0-0.1 10^3/uL Immature Granulocyte # (Auto) 0.1 0.0-0.1 10^3/uL Sodium Level 140 135-145 MMOL/L Potassium Level 3.7 3.6-5.0 MMOL/L Chloride Level 104 98-107 MMOL/L Carbon Dioxide Level 26 21-32 MMOL/L Anion Gap 10 5-14 MMOL/L Blood Urea Nitrogen 17 7-18 MG/DL Creatinine 1.17 0.60-1.30 MG/DL Estimat Glomerular Filtration Rate 65 BUN/Creatinine Ratio 15 Glucose Level 101 70-105 MG/DL Calcium Level 8.5 8.5-10.1 MG/DL Corrected Calcium 9.1 8.5-10.1 MG/DL Total Bilirubin 1.2 H 0.1-1.0 MG/DL Aspartate Amino Transf (AST/SGOT) 21 5-34 U/L Alanine Aminotransferase (ALT/SGPT) 22 0-55 U/L Alkaline Phosphatase 50 40-136 U/L Total Protein 6.0 L 6.4-8.2 GM/DL Albumin 3.3 3.2-4.5 GM/DL Test 05/02/22 15:41 Range/Units Glucometer 224 H 70-110 MG/DL Radiology ECHOCARDIOGRAM (05/02/2022): 1. This is a technically difficult study due to poor image quality secondary to patient's body habitus. Limited measurements and limited views could be obtained. 2. Left ventricle: The cavity size is normal. There is moderate concentric hypertrophy. Systolic function is normal. The estimated ejection fraction is 60- 65%. There is paradoxical septal motion, possibly due to a previous sternotomy as well as an intraventricular conduction delay. Features are consistent with a pseudonormal left ventricular filling pattern, with concomitant abnormal relaxation and increased filling pressure (grade 2 diastolic dysfunction). 3. Pulmonary arteries: The pulmonary artery pressure cannot be estimated on this study due to inadequate tricuspid regurgitant envelope. 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 His angina seems to be improved. He did not have a myocardial infarction and his ejection fraction is normal. He should continue on guideline directed medical therapy with aspirin, beta-nghia and statin medication. (2) Primary hypertension Assessment & Plan: Blood pressure is reasonably controlled with metoprolol. (3) Mixed hyperlipidemia Assessment & Plan: Continue statin medication. (4) Type 2 diabetes mellitus with complication Assessment & Plan: This is being managed by the hospitalist. MADDY HANDLEY JR, MD May 02, 2022 16:59
[2022-05-02 18:19] VITALS: BP 120/62
[2022-05-02 20:02] VITALS: BP 104/59
[2022-05-02] MEDS: TAMSULOSIN 0.4 MG (FLOMAX) CAP PO SCH (21:24)
[2022-05-02] MEDS: FINASTERIDE (PROSCAR) 5 MG TAB PO SCH (21:24)
[2022-05-03] VITALS (7 sets, daily range): BP systolic 81–117; BP diastolic 48–66
[2022-05-03] MEDS: KCL 20 MEQ TAB (K-DUR) PO SCH (05:58)
[2022-05-03] MEDS: inSUlin ASPART (NovoLOG) 1 UNIT/0.01 ML (CHARGE PER UNIT) SC SCH ×7 (05:59→20:48)
--- NOTE | 2022-05-03 06:10 | PM&R Progress Note ---
Subjective HPI/CC On Admission Date Seen by Provider: May 03, 2022 Time Seen by Provider: 11:30 Subjective/Events-last exam 05/03/2022: Pt is doing pretty well Dizziness noted due to orthostasis Holding Lasix but initiating Lopressor ordered for Dr. Spears Checked meds and labs 05/02/2022: Pt moved to independent room Discharge planned for Friday Bowels are loose Dr. Spears was consulted Echocardiogram is pending Review of Systems General: Fatigue, Malaise Objective Exam Vital Signs Vital Signs Date Time Temp Pulse Resp B/P (MAP) Pulse Ox O2 Delivery O2 Flow Rate FiO2 05/03/22 19:31 36.8 65 20 99/63 (75) 94 Room Air Capillary Refill : General Appearance: No Apparent Distress, WD/WN, Chronically ill HEENT: PERRL/EOMI, Normal ENT Inspection, Pharynx Normal Neck: Full Range of Motion, Normal Inspection, Non Tender, Supple, Carotid Bruit Respiratory: Chest Non Tender, Lungs Clear, No Accessory Muscle Use, No Respiratory Distress, Decreased Breath Sounds Cardiovascular: Regular Rate, Rhythm, No Edema, No Gallop, No JVD, No Murmur, Normal Peripheral Pulses Gastrointestinal: Normal Bowel Sounds, No Organomegaly, No Pulsatile Mass, Non Tender, Soft Back: Normal Inspection, No CVA Tenderness, No Vertebral Tenderness Extremity: Normal Capillary Refill, Normal Inspection, Normal Range of Motion, Non Tender, No Calf Tenderness, No Pedal Edema Neurologic/Psychiatric: Alert, Oriented x3, No Motor/Sensory Deficits, Normal Mood/Affect, Motor Weakness (generalized) Skin: Normal Color, Warm/Dry Lymphatic: No Adenopathy Results/Procedures Lab Patient resulted labs reviewed. FIM Transfers Therapy Code Descriptions/Definitions Functional [place] Measure: 0=Not Assessed/NA 4=Minimal Assistance 1=Total Assistance 5=Supervision or Setup 2=Maximal Assistance 6=Modified [place] 3=Moderate Assistance 7=Complete IndependenceSCALE: Activities may be completed with or without assistive devices. 8-Vyvdnzafpl-xwgttvn completes the activity by him/herself with no assistance from a helper. 5-Set-up or Clean-up Assistance-helper sets up or cleans up; patient completes activity. [place] assists only prior to or following the activity. 4-Supervision or Touching Assistance-helper provides verbal cues and/or t ouching/steadying and/or contact guard assistance as patient completes activity. Assistance may be provided throughout the activity or intermittently. 3-Partial/Moderate Assistance-helper does LESS THAN HALF the effort. [place] lifts, holds or supports trunk or limbs, but provides less than half the effort. 2-Substantial/Maximal Assistance-helper does MORE THAN HALF the effort. [place] lifts or holds trunk or limbs and provides more than half the effort. 4-Hrlmzkyao-vilbnl does ALL the effort. Patient does none of the effort to complete the activity. Or, the assistance of 2 or more helpers is required for the patient to complete the activity. If activity was not attempted, code reason: 7-Patient Refused. 9-Not Applicable-not attempted and the patient did not perform the activity before the current illness, exacerbation or injury. 10-Not Attempted due to Environmental Limitations-(lack of equipment, weather restraints, etc.). 88-Not Attempted due to Medical Conditions or Safety Concerns. Roll Left to Right (QC): 4 Sit to Lying (QC): 4 Sit to Stand (QC): 4 Chair/Rle-wc-Xkzil Xfer(QC): 4 Car Transfer (QC): 4 Gait Training Does the Patient Walk?: Yes Distance: 800'x2 Walk 10 feet (QC): 4 Walk 50 ft with 2 Turns(QC): 4 Walk 150 ft (QC): 4 Walking 10ft/uneven surface-QC: 4 Gait Persons Needed: 1 Gait Assistive Device: None Wheelchair Training Wheel 50 ft with 2 turns (QC): 9 Wheel 150 ft (QC): 9 Stair Training #of Steps: 4 1 Step (curb) (QC): 4 4 Steps (QC): 4 12 Steps (QC): 88 Balance Picking up an Object (QC): 4 (CGA using a cob sawyer) ADL-Treatment Eating (QC): 6 Oral Hygiene (QC): 6 Shower/Bathe Self (QC): 5 Upper Body Dressing (QC): 5 Lower Body Dressing (QC): 6 On/Off Footwear (QC): 6 Toileting Hygiene (QC): 6 Toilet Transfer (QC): 6 Assessment/Plan Assessment and Plan Assess & Plan/Chief Complaint Assessment: s/p CABG COPD HTN HLP DM CKD AF Plan: Monitor O2 Pain control Monitor sugar PT OT 05/02/2022: Supportive care Monitor pain 05/03/2022: Monitor orthostasis Monitor sugar (1) 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 His angina seems to be improved. He did not have a myocardial infarction and his ejection fraction is normal. He should continue on guideline directed medical therapy with aspirin, beta-nghia and statin medication. (2) Primary hypertension Assessment & Plan: Blood pressure is reasonably controlled with metoprolol. (3) Mixed hyperlipidemia Assessment & Plan: Continue statin medication. (4) Type 2 diabetes mellitus with complication Assessment & Plan: This is being managed by the hospitalist. CHRIS ROE DO May 03, 2022 06:10
[2022-05-03] MEDS: PANTOPRAZOLE 40 MG (PROTONIX) TAB PO SCH (08:43)
[2022-05-03] MEDS: ASPIRIN E.C. 81 MG (ECOTRIN) TAB PO SCH (08:43)
[2022-05-03] MEDS: GABAPENTIN 300 MG (NEURONTIN) CAP PO SCH ×3 (08:43→20:48)
[2022-05-03] MEDS: DOCUSATE SODIUM 100 MG (COLACE) CAP PO SCH ×2 (08:44→21:16)
[2022-05-03] MEDS: FUROSEMIDE 40 MG (LASIX) TAB PO SCH (08:44)
[2022-05-03] MEDS: SENNA W/DOCUSATE (SENOKOT S) TABLET PO SCH ×2 (08:44→21:16)
[2022-05-03] MEDS: polyethylene glycoL POWDER 17 GM (MIRALAX) PACK PO SCH ×2 (08:44→21:16)
--- NOTE | 2022-05-03 10:19 | Physical Therapy Daily Note ---
PT Daily Note-Current Subjective Pt. sitting EOB, expresses upset that he is having difficulty with low BP and some dizziness. Nursing states pt has been c/o dizziness upon being upright sitting and had low BPs. Pt. agrees to rx as tolerated Pain Location: No Pain Reported Mental Status Patient Orientation: Normal For Age Transfers SCALE: Activities may be completed with or without assistive devices. 4-Flpbadlfdh-qsnssvc completes the activity by him/herself with no assistance from a helper. 5-Set-up or Clean-up Assistance-helper sets up or cleans up; patient completes activity. [place] assists only prior to or following the activity. 4-Supervision or Touching Assistance-helper provides verbal cues and/or touching/steadying and/or contact guard assistance as patient completes activity. Assistance may be provided throughout the activity or intermittently. 3-Partial/Moderate Assistance-helper does LESS THAN HALF the effort. [place] lifts, holds or supports trunk or limbs, but provides less than half the effort. 2-Substantial/Maximal Assistance-helper does MORE THAN HALF the effort. [place] lifts or holds trunk or limbs and provides more than half the effort. 0-Yiiybpknl-qjcqin does ALL the effort. Patient does none of the effort to complete the activity. Or, the assistance of 2 or more helpers is required for the patient to complete the activity. If activity was not attempted, code reason: 7-Patient Refused. 9-Not Applicable-not attempted and the patient did not perform the activity before the current illness, exacerbation or injury. 10-Not Attempted due to Environmental Limitations-(lack of equipment, weather restraints, etc.). 88-Not Attempted due to Medical Conditions or Safety Concerns. Roll Left & Right (QC): 6 Sit to Lying (QC): 6 Lying to Sitting/Side of Bed(Q: 6 Sit to Stand (QC): 6 Chair/Smb-rk-Annds Xfer(QC): 6 see BPs in various positions below Gait Training Does the Patient Walk?: Yes Walk 10 feet (QC): 4 Walk 50 ft with 2 Turns(QC): 4 Walk 150 ft (QC): 4 Gait Persons Needed: 1 pt. from room to gym in w/c he propelled with his feet, from gym to room pt. pushed w/c no real wt bearing on UEs 165 ft, no LOB , CGA, no c/o dizziness Exercises Seated Therapy Exercises: Ankle pumps, Sit to stand, Long arc quads, Hip flexion, Hip abd/add Seated Reps: 15 NuStep Minutes: 8 NuStep Workload: 1 Treatments seated BPs 108/59, 113/62, standing BPs: 89/50, 95/54 and 87/54 Assessment Current Status: Fair Progress c/o dizziness early on in Rx, then no c/o at end of Rx, gait not done while dizziness was issue PT Short Term Goals Short Term Goals Time Frame: May 08, 2022 Roll Left & Right: 6 Sit to lyin Lying to sitting on side of be: 6 Sit to stand: 4 (SBA) Chair/uox-zn-fgqhe transfer: 4 (SBA) Walk 10 feet: 4 (SBA) Walk 50 feet with two turns: 4 (SBA) Walk 150 feet: 4 (SBA) PT Senior Technical Specialist Goals Custodial Goals PT Senior Technical Specialist Goals Time Frame: May 22, 2022 Roll Left & Right (QC): 6 Sit to Lying (QC): 6 Lying-Sitting on Side/Bed(QC): 6 Sit to Stand (QC): 6 Chair/Kdt-ys-Xcwvz Xfer(QC): 6 Toilet Transfer (QC): 6 Car Transfer (QC): 6 Does the Patient Walk: Yes Walk 10 feet (QC): 6 Walk 50ft with 2 Turns (QC): 6 Walk 150 ft (QC): 6 Walking 10ft on Uneven Surface: 6 1 Step (curb) (QC): 6 4 Steps (QC): 6 12 Steps (QC): 6 Picking up an Object (QC): 6 Wheel 50 feet with 2 turns (QC: 9 Wheel 150 feet: 9 PT Plan Treatment/Plan Treatment Plan: Continue Plan of Care Treatment Plan: Bed Mobility, Education, Functional Activity Rolando, Functional Strength, Group Therapy, Gait, Safety, Therapeutic Exercise, Transfers Treatment Duration: May 22, 2022 Frequency: At least 5 of 7 days/Wk (IRF) Estimated Hrs Per Day: 1.5 hours per day Patient and/or Family Agrees t: Yes Safety Risks/Education Patient Education: Gait Training, Transfer Techniques, Correct Positioning, Disease Process, Safety Issues Teaching Recipient: Patient Teaching Methods: Demonstration, Discussion Response to Teaching: Verbalize Understanding, Return Demonstration, Reinforcement Needed Time/GCodes Time In: 930 Time Out: 1015 Total Billed Treatment Time: 45 Total Billed Treatment 1,GT15m,FA20m,EX10m SHINE MEDINA PLUG AND MOLD FINISHER May 03, 2022 10:19
[2022-05-03] MEDS: meTOprolol TARTRATE 25 MG (LOPRESSOR) TABLET PO SCH ×2 (11:39→18:59)
--- NOTE | 2022-05-03 11:47 | Occupational Ther Daily Note ---
OT Current Status-Daily Note Subjective Pt denies pain, reports he had episode of dizziness earlier in the day. Appearance Pt returned to sitting EOB, present, all needs within reach. Mental Status/Objective Patient Orientation: Person, Place, Situation ADL-Treatment Therapy Code Descriptions/Definitions Functional [place] Measure: 0=Not Assessed/NA 4=Minimal Assistance 1=Total Assistance 5=Supervision or Setup 2=Maximal Assistance 6=Modified [place] 3=Moderate Assistance 7=Complete IndependenceSCALE: Activities may be completed with or without assistive devices. 4-Ulqnmxojxq-riprcpx completes the activity by him/herself with no assistance from a helper. 5-Set-up or Clean-up Assistance-helper sets up or cleans up; patient completes activity. [place] assists only prior to or following the activity. 4-Supervision or Touching Assistance-helper provides verbal cues and/or touching/steadying and/or contact guard assistance as patient completes activity. Assistance may be provided throughout the activity or intermittently. 3-Partial/Moderate Assistance-helper does LESS THAN HALF the effort. [place] lifts, holds or supports trunk or limbs, but provides less than half the effort. 2-Substantial/Maximal Assistance-helper does MORE THAN HALF the effort. [place] lifts or holds trunk or limbs and provides more than half the effort. 2-Rrdjlnmjb-fatdzs does ALL the effort. Patient does none of the effort to complete the activity. Or, the assistance of 2 or more helpers is required for the patient to complete the activity. If activity was not attempted, code reason: 7-Patient Refused. 9-Not Applicable-not attempted and the patient did not perform the activity before the current illness, exacerbation or injury. 10-Not Attempted due to Environmental Limitations-(lack of equipment, weather restraints, etc.). 88-Not Attempted due to Medical Conditions or Safety Concerns. Oral Hygiene (QC): 6 Upper Body Dressing (QC): 6 On/Off Footwear: 6 Toileting Hygiene (QC): 6 Toilet Transfer (QC): 6 At start of session: BP sittin/55 BP: standin/50 At end of treatment: BP sittin/63 No c/o dizziness throughout treatment. Other Treatment Pt participated in UE exercises with 2# dumbbell. Focus on improving cardiovascular health, strength and endurance needed for adls. In order to adhere to sternal precautions, All shoulder exercises modified to 90 degrees only with no simultaneous UE movement. Good tolerance throughout. 1x12. Pt also performed seated core exercises including modified sit up, marches, and straight leg lifts, and knee ups, 1x10. While standing, pt participated in novel card game. Focus on improving standing tolerance, cardiovascular health, balance and overall endurance. Min reminders on recall of rules throughout game play. Pt tolerated well and able to stand for ~8 minutes before needing a seated rest break. No LOB during activity. During PVC pipe activity, pieces of pipe were placed ~8 feet away from design t emplate. Pt encouraged to use memory strategies in order to build puzzle. Very poor short term memory observed throughout activity, despite education and instruction on memory strategies. Pt often only able to recall 1 piece at a time, thus needing to ambulate back and forth several times in order to finish puzzle. With repetition strategy, pt often verbalizing incorrect pieces (ex: getting CAD confused with CAB). With increased activity, mild unsteadiness exhibited but no significant LOB. Education OT Patient Education: Correct positioning, Energy conservation, Exercise program, Modified ADL techniques, Progress toward Goal/Update tx plan, Purpose of tx/functional activities, Reviewed precautions, Rehab process Teaching Recipient: Patient Teaching Methods: Demonstration, Discussion Response to Teaching: Verbalize Understanding, Return Demonstration, Reinforcement Needed OT Short Term Goals Short Term Goals Time Frame: May 03, 2022 Eatin Oral hygiene: 6 Toileting hygiene: 5 Shower/bathe self: 4 Upper body dressin Lower body dressin Putting on/taking off footwear: 6 OT Assisted Goals Assisted Goals Time Frame: May 07, 2022 Eating (QC): 6 Oral Hygiene (QC): 6 Toileting Hygiene (QC): 6 Shower/Bathe Self (QC): 6 Upper Body Dressing (QC): 6 Lower Body Dressing (QC): 6 On/Off Footwear (QC): 6 1=Demonstrate adherence to instructed precautions during ADL tasks. 2=Patient will verbalize/demonstrate understanding of assistive devices/modifications for ADL. 3=Patient will improve strength/tolerance for activity to enable patient to perform ADL's. OT Education/Plan Problem List/Assessment Assessment: Decreased Activ Tolerance, Decreased UE Strength, Impaired Cognition, Impaired I ADL's, Restricted Funct UE ROM Discharge Recommendations Plan/Recommendations: Continue POC Treatment Plan/Plan of Care Treatment,Training & Education: Yes Patient would benefit from OT for education, treatment and training to promote independence in ADL's, mobility, safety and/or upper extremity function for ADL's. Plan of Care: ADL Retraining, Functional Mobility, Group Exercise/Act as Ind, UE Funct Exercise/Act Treatment Duration: May 07, 2022 Frequency: At least 5 of 7 days/Wk (IRF) Estimated Hrs Per Day: 1.5 hours per day (75-90 min/day ) Agreement: Yes Rehab Potential: Fair Time/GCodes Start Time: 10:15 Stop Time: 11:45 Total Time Billed (hr/min): 90 Billed Treatment Time 1 visit ADL (15 min) FA x3 (45 min) EX x2 (30 min) Iris Garcia OT May 03, 2022 11:47
--- NOTE | 2022-05-03 13:30 | Physical Therapy Daily Note ---
PT Daily Note-Current Subjective Pt. feels well and agrees to Rx. No c/o dizziness Pain Location: No Pain Reported Mental Status Patient Orientation: Normal For Age Transfers SCALE: Activities may be completed with or without assistive devices. 7-Blzedcekuj-tplheeu completes the activity by him/herself with no assistance from a helper. 5-Set-up or Clean-up Assistance-helper sets up or cleans up; patient completes activity. [place] assists only prior to or following the activity. 4-Supervision or Touching Assistance-helper provides verbal cues and/or touching/steadying and/or contact guard assistance as patient completes activity. Assistance may be provided throughout the activity or intermittently. 3-Partial/Moderate Assistance-helper does LESS THAN HALF the effort. [place] lifts, holds or supports trunk or limbs, but provides less than half the effort. 2-Substantial/Maximal Assistance-helper does MORE THAN HALF the effort. [place] lifts or holds trunk or limbs and provides more than half the effort. 8-Crfqzhaok-olvjgk does ALL the effort. Patient does none of the effort to complete the activity. Or, the assistance of 2 or more helpers is required for the patient to complete the activity. If activity was not attempted, code reason: 7-Patient Refused. 9-Not Applicable-not attempted and the patient did not perform the activity before the current illness, exacerbation or injury. 10-Not Attempted due to Environmental Limitations-(lack of equipment, weather restraints, etc.). 88-Not Attempted due to Medical Conditions or Safety Concerns. all TRFs mod I Gait Training Does the Patient Walk?: Yes Gait Assistive Device: None gait 165 ft x 2 no AD, some staggering noted, COMPOUNDING AND FINISHING SUPERVISOR department specialist. Stair Training Stair Training: Handrails/: 2 handrails #of Steps: 4 4 Steps (QC): 4 Stairs: Pattern: Reciprocal Exercises Supine Ex: Bridging, Ankle pumps, Quad Set, Rolling, Glut sets, Heel Slides, Short Arc Quads, Scooting, Straight leg raise, Hip abd/add Supine Reps: 12 Standing: Hip Abduction, Hamstring curls, Heel/toe raises, Marching Standing Reps: 15 Assessment Current Status: Good Progress PT Short Term Goals Short Term Goals Time Frame: May 08, 2022 Roll Left & Right: 6 Sit to lyin Lying to sitting on side of be: 6 Sit to stand: 4 (SBA) Chair/sdc-vq-tcrpc transfer: 4 (SBA) Walk 10 feet: 4 (SBA) Walk 50 feet with two turns: 4 (SBA) Walk 150 feet: 4 (SBA) PT Tumbling Barrel Painter Goals Nursing Home Goals PT Nursing Home Goals Time Frame: May 22, 2022 Roll Left & Right (QC): 6 Sit to Lying (QC): 6 Lying-Sitting on Side/Bed(QC): 6 Sit to Stand (QC): 6 Chair/Caf-pr-Lluhy Xfer(QC): 6 Toilet Transfer (QC): 6 Car Transfer (QC): 6 Does the Patient Walk: Yes Walk 10 feet (QC): 6 Walk 50ft with 2 Turns (QC): 6 Walk 150 ft (QC): 6 Walking 10ft on Uneven Surface: 6 1 Step (curb) (QC): 6 4 Steps (QC): 6 12 Steps (QC): 6 Picking up an Object (QC): 6 Wheel 50 feet with 2 turns (QC: 9 Wheel 150 feet: 9 PT Plan Treatment/Plan Treatment Plan: Continue Plan of Care Treatment Plan: Bed Mobility, Education, Functional Activity Rol[place], Functional Strength, Group Therapy, Gait, Safety, Therapeutic Exercise, Transfers Treatment Duration: May 22, 2022 Frequency: At least 5 of 7 days/Wk (IRF) Estimated Hrs Per Day: 1.5 hours per day Patient and/or Family Agrees t: Yes Safety Risks/Education Patient Education: Gait Training, Transfer Techniques, Steps, Correct Positioning, Disease Process, Safety Issues Teaching Recipient: Patient Teaching Methods: Demonstration, Discussion Response to Teaching: Verbalize Understanding, Return Demonstration, Reinforcement Needed Time/GCodes Time In: 1245 Time Out: 1330 Total Billed Treatment Time: 45 Total Billed Treatment 1,EX20m,GT10m,FA15m SHINE MEDINA OPTICAL LABORATORY TECHNICIAN May 03, 2022 13:30
[2022-05-03] MEDS ORDERED: METF-397 PO (14:39)
[2022-05-03] MEDS ORDERED: SITA100T12 PO (14:39)
[2022-05-03] MEDS ORDERED: INSU100I29 SC (14:39)
[2022-05-03] MEDS ORDERED: GABA300C PO (14:39)
--- NOTE | 2022-05-03 18:05 | Cardiology Progress Note ---
Progress Note-Cardiology Events since last exam Date Seen by Provider: May 03, 2022 Time Seen by Provider: 18:03 Events since last exam We are following him due to coronary artery disease with recent coronary bypass surgery. This morning his blood pressure was somewhat low and he felt foggy at the time. I asked the nurse to have him drink a half a liter of water in the morning and by about 11:00 in the morning, his blood pressure was better and his foggy sensation had resolved. He denies chest pain, dyspnea, palpitations, or syncope. His peripheral edema has been improving. Certain portions of this document may have been dictated utilizing voice recognition technology. Inherent to this technology, typographical and grammatical errors may exist. As much as I am diligent to identify and correct these mistakes, some errors may remain in the document. Vitals Last set of Vitals Signs Vital Signs 05/03/22 05/03/22 07:27 16:29 Temp 37.1 Pulse 62 Resp 18 B/P (MAP) 117/66 (83) Pulse Ox 97 O2 Delivery Room Air Exam Vital Signs Vital Signs Date Time Temp Pulse Resp B/P (MAP) Pulse Ox O2 Delivery O2 Flow Rate FiO2 05/03/22 16:29 62 117/66 (83) 97 Room Air 05/03/22 07:27 37.1 18 Physical Exam General: Alert. No acute distress. Eye: No xanthelasma. HENT: Normocephalic. Neck: Jugular venous pressure does not appear elevated. Respiratory: Lungs are clear to auscultation. Respirations are non-labored. Breath sounds are equal. Symmetrical chest wall expansion. Cardiovascular: Normal rate. Regular rhythm. No murmur. No gallop. Trace bilateral pretibial edema. Gastrointestinal: Soft. Normal bowel sounds. Skin: Warm. Dry. Neurologic: Alert and oriented to person, place, time. Cranial nerves 3-11 grossly intact. Psychiatric: Cooperative. Appropriate mood & affect. 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 His angina seems to be improved. He did not have a myocardial infarction and his ejection fraction is normal. The records from the outside hospital did not show any indication of postoperative atrial fibrillation. He should continue on guideline directed medical therapy with aspirin, beta-nghia and statin medication. At this time, I believe we can stop his diuretic. (2) Primary hypertension Assessment & Plan: Blood pressure is reasonably controlled with metoprolol a lthough was running somewhat low this morning and he was orthostatic. As above, will stop his diuretic. He had been ordered for a fluid restriction but this was discontinued. (3) Mixed hyperlipidemia Assessment & Plan: Continue statin medication. (4) Type 2 diabetes mellitus with complication Assessment & Plan: This is being managed by the hospitalist. MADDY HANDLEY JR, MD May 03, 2022 18:05
[2022-05-03] MEDS ORDERED: GABAPENTIN 300 MG (NEURONTIN) CAP PO PRN (20:30)
[2022-05-03] MEDS: TAMSULOSIN 0.4 MG (FLOMAX) CAP PO SCH (20:48)
[2022-05-03] MEDS: FINASTERIDE (PROSCAR) 5 MG TAB PO SCH (20:48)
--- NOTE | 2022-05-04 05:51 | PM&R Progress Note ---
Subjective HPI/CC On Admission Date Seen by Provider: May 04, 2022 Time Seen by Provider: 05:45 Subjective/Events-last exam 05/04/2022: Pt doing a lot better Will evaluate whether Orthostasis occurs today Moving around well No pain 05/03/2022: Pt is doing pretty well Dizziness noted due to orthostasis Holding Lasix but initiating Lopressor ordered for Dr. Spears Checked meds and labs 05/02/2022: Pt moved to independent room Discharge planned for Friday Bowels are loose Dr. Spears was consulted Echocardiogram is pending Review of Systems General: Fatigue, Malaise Pulmonary: Dyspnea Objective Exam Vital Signs Vital Signs Date Time Temp Pulse Resp B/P (MAP) Pulse Ox O2 Delivery O2 Flow Rate FiO2 05/04/22 14:24 68 96/55 (69) 05/04/22 09:25 Room Air 05/04/22 07:17 37.1 18 96 Capillary Refill : General Appearance: No Apparent Distress, WD/WN, Chronically ill HEENT: PERRL/EOMI, Normal ENT Inspection, Pharynx Normal Neck: Full Range of Motion, Normal Inspection, Non Tender, Supple, Carotid Bruit Respiratory: Chest Non Tender, Lungs Clear, No Accessory Muscle Use, No Respiratory Distress, Decreased Breath Sounds Cardiovascular: Regular Rate, Rhythm, No Edema, No Gallop, No JVD, No Murmur, Normal Peripheral Pulses Gastrointestinal: Normal Bowel Sounds, No Organomegaly, No Pulsatile Mass, Non Tender, Soft Back: Normal Inspection, No CVA Tenderness, No Vertebral Tenderness Extremity: Normal Capillary Refill, Normal Inspection, Normal Range of Motion, Non Tender, No Calf Tenderness, No Pedal Edema Neurologic/Psychiatric: Alert, Oriented x3, No Motor/Sensory Deficits, Normal Mood/Affect, Motor Weakness (generalized) Skin: Normal Color, Warm/Dry Lymphatic: No Adenopathy Results/Procedures Lab Patient resulted labs reviewed. FIM Transfers Therapy Code Descriptions/Definitions Functional [place] Measure: 0=Not Assessed/NA 4=Minimal Assistance 1=Total Assistance 5=Supervision or Setup 2=Maximal Assistance 6=Modified [place] 3=Moderate Assistance 7=Complete IndependenceSCALE: Activities may be completed with or without assistive devices. 7-Tkqxczmayq-bslrjdd completes the activity by him/herself with no assistance from a helper. 5-Set-up or Clean-up Assistance-helper sets up or cleans up; patient completes activity. [place] assists only prior to or following the activity. 4-Supervision or Touching Assistance-helper provides verbal cues and/or touching/steadying and/or contact guard assistance as patient completes activity. Assistance may be provided throughout the activity or intermittently. 3-Partial/Moderate Assistance-helper does LESS THAN HALF the effort. [place] lifts, holds or supports trunk or limbs, but provides less than half the effort. 2-Substantial/Maximal Assistance-helper does MORE THAN HALF the effort. [place] lifts or holds trunk or limbs and provides more than half the effort. 6-Xmrtyhcue-wfddth does ALL the effort. Patient does none of the effort to complete the activity. Or, the assistance of 2 or more helpers is required for the patient to complete the activity. If activity was not attempted, code reason: 7-Patient Refused. 9-Not Applicable-not attempted and the patient did not perform the activity before the current illness, exacerbation or injury. 10-Not Attempted due to Environmental Limitations-(lack of equipment, weather restraints, etc.). 88-Not Attempted due to Medical Conditions or Safety Concerns. Roll Left to Right (QC): 6 Sit to Lying (QC): 6 Sit to Stand (QC): 6 Chair/Iku-rt-Ujicj Xfer(QC): 6 Car Transfer (QC): 4 Gait Training Does the Patient Walk?: Yes Distance: 800'x2 Walk 10 feet (QC): 4 Walk 50 ft with 2 Turns(QC): 4 Walk 150 ft (QC): 4 Walking 10ft/uneven surface-QC: 4 Gait Persons Needed: 1 Gait Assistive Device: None Wheelchair Training Wheel 50 ft with 2 turns (QC): 9 Wheel 150 ft (QC): 9 Stair Training Stair Training: Handrails/: 2 handrails #of Steps: 4 1 Step (curb) (QC): 4 4 Steps (QC): 4 12 Steps (QC): 88 Stairs: Pattern: Reciprocal Balance Picking up an Object (QC): 4 (CGA using a calender machine operator) ADL-Treatment Eating (QC): 6 Oral Hygiene (QC): 6 Shower/Bathe Self (QC): 5 Upper Body Dressing (QC): 6 Lower Body Dressing (QC): 6 On/Off Footwear (QC): 6 Toileting Hygiene (QC): 6 Toilet Transfer (QC): 6 Assessment/Plan Assessment and Plan Assess & Plan/Chief Complaint Assessment: s/p CABG COPD HTN HLP DM CKD AF Plan: Monitor O2 Pain control Monitor sugar PT OT 05/02/2022: Supportive care Monitor pain 05/03/2022: Monitor orthostasis Monitor sugar 05/04/2022: Supportive care Monitor blood pressure (1) 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 His angina seems to be improved. He did not have a myocardial infarction and his ejection fraction is normal. The records from the outside hospital did not show any indication of postoperative atrial fibrillation. He should continue on guideline directed medical therapy with aspirin, beta-nghia and statin medication. At this time, I believe we can stop his diuretic. (2) Primary hypertension Assessment & Plan: Blood pressure is reasonably controlled with metoprolol although was running somewhat low this morning and he was orthostatic. As above, will stop his diuretic. He had been ordered for a fluid restriction but this was discontinued. (3) Mixed hyperlipidemia Assessment & Plan: Continue statin medication. (4) Type 2 diabetes mellitus with complication Assessment & Plan: This is being managed by the hospitalist. CHRIS ROE DO May 04, 2022 05:51
[2022-05-04] MEDS: KCL 20 MEQ TAB (K-DUR) PO SCH (06:43)
[2022-05-04] MEDS: inSUlin ASPART (NovoLOG) 1 UNIT/0.01 ML (CHARGE PER UNIT) SC SCH ×7 (06:44→21:27)
[2022-05-04 07:17] VITALS: BP 99/62
[2022-05-04] MEDS: PANTOPRAZOLE 40 MG (PROTONIX) TAB PO SCH (08:26)
[2022-05-04] MEDS: ASPIRIN E.C. 81 MG (ECOTRIN) TAB PO SCH (08:26)
[2022-05-04] MEDS: GABAPENTIN 300 MG (NEURONTIN) CAP PO SCH ×3 (08:26→21:22)
[2022-05-04] MEDS: metFORMIN 500 MG (GLUCOPHAGE) TAB PO SCH (08:26)
[2022-05-04] MEDS: polyethylene glycoL POWDER 17 GM (MIRALAX) PACK PO SCH ×2 (08:34→21:27)
[2022-05-04] MEDS: DOCUSATE SODIUM 100 MG (COLACE) CAP PO SCH ×2 (08:34→21:27)
[2022-05-04] MEDS: SENNA W/DOCUSATE (SENOKOT S) TABLET PO SCH ×2 (08:34→21:27)
--- NOTE | 2022-05-04 10:11 | Cardiology Progress Note ---
Progress Note-Cardiology Events since last exam Date Seen by Provider: May 04, 2022 Time Seen by Provider: 10:08 Events since last exam We are following him due to coronary artery disease. He remains on the inpatient rehabilitation unit. He has been working with physical and occupational therapy without issues. He still has some mild ankle edema but did not want to wear his compression stockings today. He denies chest pain, dyspnea, palpitations, or syncope. Certain portions of this document may have been dictated utilizing voice recognition technology. Inherent to this technology, typographical and grammatical errors may exist. As much as I am diligent to identify and correct these mistakes, some errors may remain in the document. Vitals Last set of Vitals Signs Vital Signs 05/04/22 05/04/22 07:17 09:25 Temp 37.1 Pulse 71 Resp 18 B/P (MAP) 99/62 (74) Pulse Ox 96 O2 Delivery Room Air Exam Vital Signs Vital Signs Date Time Temp Pulse Resp B/P (MAP) Pulse Ox O2 Delivery O2 Flow Rate FiO2 05/04/22 09:25 Room Air 05/04/22 07:17 37.1 71 18 99/62 (74) 96 Physical Exam General: Alert. No acute distress. Eye: No xanthelasma. HENT: Normocephalic. Neck: Jugular venous pressure does not appear elevated. Respiratory: Lungs are clear to auscultation. Respirations are non-labored. Breath sounds are equal. Symmetrical chest wall expansion. Cardiovascular: Normal rate. Regular rhythm. No murmur. No gallop. 1+ bilateral pretibial edema. Gastrointestinal: Soft. Normal bowel sounds. Skin: Warm. Dry. Neurologic: Alert and oriented to person, place, time. Cranial nerves 3-11 grossly intact. Psychiatric: Cooperative. Appropriate mood & affect. 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 His angina seems to be improved. He did not have a myocardial infarction and his ejection fraction is normal. The records from the outside hospital did not show any indication of postoperative atrial fibrillation. He should continue on guideline directed medical therapy with aspirin and statin medication. I stopped his beta-nghia and diuretics due to low blood pressures. He did not have a history of hypertension prior to this recent diagnosis of coronary artery disease. I suspect his peripheral edema is related to having vein harvesting from both legs during the surgery as well as volume administered around the time of surgery. He does not have heart failure. (2) Primary hypertension Assessment & Plan: As above, his blood pressures have been running low so I stopped the beta-nghia and diuretic. We will continue to monitor his blood pressures closely. (3) Mixed hyperlipidemia Assessment & Plan: Continue statin medication. (4) Type 2 diabetes mellitus with complication Assessment & Plan: This is being managed by the hospitalist. MADDY HANDLEY JR, MD May 04, 2022 10:11
--- NOTE | 2022-05-04 12:58 | Physical Therapy Daily Note ---
PT Daily Note-Current Subjective No pain or discomfort reported. Mental Status Patient Orientation: Person, Place, Time, Situation Transfers SCALE: Activities may be completed with or without assistive devices. 6-Njbbyqrhsv-expmqhp completes the activity by him/herself with no assistance from a helper. 5-Set-up or Clean-up Assistance-helper sets up or cleans up; patient completes activity. [place] assists only prior to or following the activity. 4-Supervision or Touching Assistance-helper provides verbal cues and/or touching/steadying and/or contact guard assistance as patient completes activity. Assistance may be provided throughout the activity or intermittently. 3-Partial/Moderate Assistance-helper does LESS THAN HALF the effort. [place] lifts, holds or supports trunk or limbs, but provides less than half the effort. 2-Substantial/Maximal Assistance-helper does MORE THAN HALF the effort. [place] l ifts or holds trunk or limbs and provides more than half the effort. 5-Iyojbcfnv-zjqevb does ALL the effort. Patient does none of the effort to complete the activity. Or, the assistance of 2 or more helpers is required for the patient to complete the activity. If activity was not attempted, code reason: 7-Patient Refused. 9-Not Applicable-not attempted and the patient did not perform the activity before the current illness, exacerbation or injury. 10-Not Attempted due to Environmental Limitations-(lack of equipment, weather restraints, etc.). 88-Not Attempted due to Medical Conditions or Safety Concerns. Roll Left & Right (QC): 6 Sit to Lying (QC): 6 Lying to Sitting/Side of Bed(Q: 6 Sit to Stand (QC): 6 Gait Training Does the Patient Walk?: Yes Distance: 300ft Walk 10 feet (QC): 6 Walk 50 ft with 2 Turns(QC): 6 Walk 150 ft (QC): 6 Walking 10ft/uneven surface-QC: 6 Gait Persons Needed: 1 Gait Assistive Device: None Normal gait pattern. Good stability throughout. Wheelchair Training Does the Pt Use a Wheelchair?: No Exercises Seated Therapy Exercises: Long arc quads, Hip flexion Seated Reps: 20 Standing: Heel/toe raises, 3 way Ex=Flex, Abd, Ext, Marching, Sit to Stand Standing Reps: 20 NuStep Minutes: 10 Assessment Current Status: Excellent Progress Excellent performance with no issues observed. PT Short Term Goals Short Term Goals Time Frame: May 08, 2022 Roll Left & Right: 6 Sit to lyin Lying to sitting on side of be: 6 Sit to stand: 4 (SBA) Chair/avg-dp-xgegw transfer: 4 (SBA) Walk 10 feet: 4 (SBA) Walk 50 feet with two turns: 4 (SBA) Walk 150 feet: 4 (SBA) PT Fpc Goals Blender/Braze Applicator Goals PT Fpc Goals Time Frame: May 22, 2022 Roll Left & Right (QC): 6 Sit to Lying (QC): 6 Lying-Sitting on Side/Bed(QC): 6 Sit to Stand (QC): 6 Chair/Bls-yf-Brren Xfer(QC): 6 Toilet Transfer (QC): 6 Car Transfer (QC): 6 Does the Patient Walk: Yes Walk 10 feet (QC): 6 Walk 50ft with 2 Turns (QC): 6 Walk 150 ft (QC): 6 Walking 10ft on Uneven Surface: 6 1 Step (curb) (QC): 6 4 Steps (QC): 6 12 Steps (QC): 6 Picking up an Object (QC): 6 Wheel 50 feet with 2 turns (QC: 9 Wheel 150 feet: 9 PT Plan Treatment/Plan Treatment Plan: Continue Plan of Care Treatment Plan: Bed Mobility, Education, Functional Activity [place], Functional Strength, Group Therapy, Gait, Safety, Therapeutic Exercise, Transfers Treatment Duration: May 22, 2022 Frequency: At least 5 of 7 days/Wk (IRF) Estimated Hrs Per Day: 1.5 hours per day Patient and/or Family Agrees t: Yes Time/GCodes Time In: 1010 Time Out: 1040 Total Billed Treatment Time: 30 Total Billed Treatment 1, ex 20, gt 10 ANN MARIE TRINH PT May 04, 2022 12:58
[2022-05-04 14:24] VITALS: BP 96/55
[2022-05-04 19:22] VITALS: BP 105/66
[2022-05-04] MEDS: TAMSULOSIN 0.4 MG (FLOMAX) CAP PO SCH (21:22)
[2022-05-04] MEDS: FINASTERIDE (PROSCAR) 5 MG TAB PO SCH (21:22)
--- NOTE | 2022-05-05 05:50 | PM&R Progress Note ---
Subjective HPI/CC On Admission Date Seen by Provider: May 05, 2022 Time Seen by Provider: 05:50 Subjective/Events-last exam 05/05/2022: Patient doing really well Gaining strength Blood pressure much improved today No other concerns 05/04/2022: Pt doing a lot better Will evaluate whether Orthostasis occurs today Moving around well No pain 05/03/2022: Pt is doing pretty well Dizziness noted due to orthostasis Holding Lasix but initiating Lopressor ordered for Dr. Spears Checked meds and labs 05/02/2022: Pt moved to independent room Discharge planned for Friday Bowels are loose Dr. Spears was consulted Echocardiogram is pending Review of Systems General: Fatigue, Malaise Objective Exam Vital Signs Vital Signs Date Time Temp Pulse Resp B/P (MAP) Pulse Ox O2 Delivery O2 Flow Rate FiO2 05/05/22 09:59 Room Air 05/05/22 07:20 36.9 74 18 97/66 (76) 95 Capillary Refill : General Appearance: No Apparent Distress, WD/WN, Chronically ill HEENT: PERRL/EOMI, Normal ENT Inspection, Pharynx Normal Neck: Full Range of Motion, Normal Inspection, Non Tender, Supple, Carotid Bruit Respiratory: Chest Non Tender, Lungs Clear, No Accessory Muscle Use, No Respiratory Distress, Decreased Breath Sounds Cardiovascular: Regular Rate, Rhythm, No Edema, No Gallop, No JVD, No Murmur, Normal Peripheral Pulses Gastrointestinal: Normal Bowel Sounds, No Organomegaly, No Pulsatile Mass, Non Tender, Soft Back: Normal Inspection, No CVA Tenderness, No Vertebral Tenderness Extremity: Normal Capillary Refill, Normal Inspection, Normal Range of Motion, Non Tender, No Calf Tenderness, No Pedal Edema Neurologic/Psychiatric: Alert, Oriented x3, No Motor/Sensory Deficits, Normal Mood/Affect, Motor Weakness (generalized) Skin: Normal Color, Warm/Dry Lymphatic: No Adenopathy Results/Procedures Lab Patient resulted labs reviewed. FIM Transfers Therapy Code Descriptions/Definitions Functional [place] Measure: 0=Not Assessed/NA 4=Minimal Assistance 1=Total Assistance 5=Supervision or Setup 2=Maximal Assistance 6=Modified [place] 3=Moderate Assistance 7=Complete IndependenceSCALE: Activities may be completed with or without assistive devices. 0-Flgiqgtdsd-rhuuwyq completes the activity by him/herself with no assistance from a helper. 5-Set-up or Clean-up Assistance-helper sets up or cleans up; patient completes activity. [place] assists only prior to or following the activity. 4-Supervision or Touching Assistance-helper provides verbal cues and/or touching/steadying and/or contact guard assistance as patient completes activity. Assistance may be provided throughout the activity or intermittently. 3-Partial/Moderate Assistance-helper does LESS THAN HALF the effort. [place] lifts, holds or supports trunk or limbs, but provides less than half the effort. 2-Substantial/Maximal Assistance-helper does MORE THAN HALF the effort. [place] lifts or holds trunk or limbs and provides more than half the effort. 8-Sgvevrfgk-pbqkrd does ALL the effort. Patient does none of the effort to complete the activity. Or, the assistance of 2 or more helpers is required for the patient to complete the activity. If activity was not attempted, code reason: 7-Patient Refused. 9-Not Applicable-not attempted and the patient did not perform the activity before the current illness, exacerbation or injury. 10-Not Attempted due to Environmental Limitations-(lack of equipment, weather restraints, etc.). 88-Not Attempted due to Medical Conditions or Safety Concerns. Roll Left to Right (QC): 6 Sit to Lying (QC): 6 Sit to Stand (QC): 6 Chair/Xxr-tt-Rjlwx Xfer(QC): 6 Car Transfer (QC): 4 Gait Training Does the Patient Walk?: Yes Distance: 300ft Walk 10 feet (QC): 6 Walk 50 ft with 2 Turns(QC): 6 Walk 150 ft (QC): 6 Walking 10ft/uneven surface-QC: 6 Gait Persons Needed: 1 Gait Assistive Device: None Wheelchair Training Does the Pt Use a Wheelchair?: No Wheel 50 ft with 2 turns (QC): 9 Wheel 150 ft (QC): 9 Stair Training Stair Training: Handrails/: 2 handrails #of Steps: 4 1 Step (curb) (QC): 4 4 Steps (QC): 4 12 Steps (QC): 88 Stairs: Pattern: Reciprocal Balance Picking up an Object (QC): 4 (CGA using a bank cashier) ADL-Treatment Eating (QC): 6 Oral Hygiene (QC): 6 Shower/Bathe Self (QC): 5 Upper Body Dressing (QC): 6 Lower Body Dressing (QC): 6 On/Off Footwear (QC): 6 Toileting Hygiene (QC): 6 Toilet Transfer (QC): 6 Assessment/Plan Assessment and Plan Assess & Plan/Chief Complaint Assessment: s/p CABG COPD HTN HLP DM CKD AF Plan: Monitor O2 Pain control Monitor sugar PT OT 05/02/2022: Supportive care Monitor pain 05/03/2022: Monitor orthostasis Monitor sugar 05/04/2022: Supportive care Monitor blood pressure 05/05/2022: Hold Lopressor (1) 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 His angina seems to be improved. He did not have a myocardial infarction and his ejection fraction is normal. The records from the outside hospital did not show any indication of postoperative atrial fibrillation. He should continue on guideline directed medical therapy with aspirin and statin medication. I stopped his beta-nghia and diuretics due to low blood pressures. He did not have a history of hypertension prior to this recent diagnosis of coronary artery disease. I suspect his peripheral edema is related to having vein harvesting from both legs during the surgery as well as volume administered around the time of surgery. He does not have heart failure. (2) Primary hypertension Assessment & Plan: As above, his blood pressures have been running low so I stopped the beta-nghia and diuretic. We will continue to monitor his blood pressures closely. (3) Mixed hyperlipidemia Assessment & Plan: Continue statin medication. (4) Type 2 diabetes mellitus with complication Assessment & Plan: This is being managed by the hospitalist. CHRIS ROE DO May 05, 2022 05:50
[2022-05-05] MEDS: inSUlin ASPART (NovoLOG) 1 UNIT/0.01 ML (CHARGE PER UNIT) SC SCH ×7 (06:28→21:18)
[2022-05-05] MEDS: KCL 20 MEQ TAB (K-DUR) PO SCH (07:18)
[2022-05-05 07:20] VITALS: BP 97/66
[2022-05-05] MEDS: DOCUSATE SODIUM 100 MG (COLACE) CAP PO SCH ×2 (08:17→21:17)
[2022-05-05] MEDS: GABAPENTIN 300 MG (NEURONTIN) CAP PO SCH ×3 (08:17→21:16)
[2022-05-05] MEDS: SENNA W/DOCUSATE (SENOKOT S) TABLET PO SCH ×2 (08:17→21:16)
[2022-05-05] MEDS: PANTOPRAZOLE 40 MG (PROTONIX) TAB PO SCH (08:17)
[2022-05-05] MEDS: metFORMIN 500 MG (GLUCOPHAGE) TAB PO SCH (08:17)
[2022-05-05] MEDS: ASPIRIN E.C. 81 MG (ECOTRIN) TAB PO SCH (08:17)
[2022-05-05] MEDS: polyethylene glycoL POWDER 17 GM (MIRALAX) PACK PO SCH ×2 (09:07→19:40)
[2022-05-05 19:38] VITALS: BP 104/66
[2022-05-05] MEDS: TAMSULOSIN 0.4 MG (FLOMAX) CAP PO SCH (21:16)
[2022-05-05] MEDS: FINASTERIDE (PROSCAR) 5 MG TAB PO SCH (21:16)
[2022-05-06] MEDS: inSUlin ASPART (NovoLOG) 1 UNIT/0.01 ML (CHARGE PER UNIT) SC SCH ×7 (05:46→20:41)
--- NOTE | 2022-05-06 05:59 | PM&R Progress Note ---
Subjective HPI/CC On Admission Date Seen by Provider: May 06, 2022 Time Seen by Provider: 06:00 Subjective/Events-last exam 05/06/2022: Patient doing really well Orthostasis has resolved No pain is reported No falls 05/05/2022: Patient doing really well Gaining strength Blood pressure much improved today No other concerns 05/04/2022: Pt doing a lot better Will evaluate whether Orthostasis occurs today Moving around well No pain 05/03/2022: Pt is doing pretty well Dizziness noted due to orthostasis Holding Lasix but initiating Lopressor ordered for Dr. Spears Checked meds and labs 05/02/2022: Pt moved to independent room Discharge planned for Friday Bowels are loose Dr. Spears was consulted Echocardiogram is pending Review of Systems General: Fatigue, Malaise Objective Exam Vital Signs Vital Signs Date Time Temp Pulse Resp B/P (MAP) Pulse Ox O2 Delivery O2 Flow Rate FiO2 05/06/22 09:44 Room Air 05/06/22 07:22 36.7 76 18 115/66 (82) 95 Capillary Refill : General Appearance: No Apparent Distress, WD/WN, Chronically ill HEENT: PERRL/EOMI, Normal ENT Inspection, Pharynx Normal Neck: Full Range of Motion, Normal Inspection, Non Tender, Supple, Carotid Bruit Respiratory: Chest Non Tender, Lungs Clear, No Accessory Muscle Use, No Respira tory Distress, Decreased Breath Sounds Cardiovascular: Regular Rate, Rhythm, No Edema, No Gallop, No JVD, No Murmur, Normal Peripheral Pulses Gastrointestinal: Normal Bowel Sounds, No Organomegaly, No Pulsatile Mass, Non Tender, Soft Back: Normal Inspection, No CVA Tenderness, No Vertebral Tenderness Extremity: Normal Capillary Refill, Normal Inspection, Normal Range of Motion, Non Tender, No Calf Tenderness, No Pedal Edema Neurologic/Psychiatric: Alert, Oriented x3, No Motor/Sensory Deficits, Normal Mood/Affect, Motor Weakness (generalized) Skin: Normal Color, Warm/Dry Lymphatic: No Adenopathy Results/Procedures Lab Patient resulted labs reviewed. FIM Transfers Therapy Code Descriptions/Definitions Functional [place] Measure: 0=Not Assessed/NA 4=Minimal Assistance 1=Total Assistance 5=Supervision or Setup 2=Maximal Assistance 6=Modified [place] 3=Moderate Assistance 7=Complete IndependenceSCALE: Activities may be completed with or without assistive devices. 9-Cvkneytogb-qblgpce completes the activity by him/herself with no assistance from a helper. 5-Set-up or Clean-up Assistance-helper sets up or cleans up; patient completes activity. [place] assists only prior to or following the activity. 4-Supervision or Touching Assistance-helper provides verbal cues and/or touching/steadying and/or contact guard assistance as patient completes activity. Assistance may be provided throughout the activity or intermittently. 3-Partial/Moderate Assistance-helper does LESS THAN HALF the effort. [place] lifts, holds or supports trunk or limbs, but provides less than half the effort. 2-Substantial/Maximal Assistance-helper does MORE THAN HALF the effort. [place] lifts or holds trunk or limbs and provides more than half the effort. 2-Mxuqpivtg-tzmxlk does ALL the effort. Patient does none of the effort to complete the activity. Or, the assistance of 2 or more helpers is required for the patient to complete the activity. If activity was not attempted, code reason: 7-Patient Refused. 9-Not Applicable-not attempted and the patient did not perform the activity before the current illness, exacerbation or injury. 10-Not Attempted due to Environmental Limitations-(lack of equipment, weather restraints, etc.). 88-Not Attempted due to Medical Conditions or Safety Concerns. Roll Left to Right (QC): 6 Sit to Lying (QC): 6 Sit to Stand (QC): 6 Chair/Bvu-mq-Hkubz Xfer(QC): 6 Car Transfer (QC): 4 Gait Training Does the Patient Walk?: Yes Distance: 300ft Walk 10 feet (QC): 6 Walk 50 ft with 2 Turns(QC): 6 Walk 150 ft (QC): 6 Walking 10ft/uneven surface-QC: 6 Gait Persons Needed: 1 Gait Assistive Device: None Wheelchair Training Does the Pt Use a Wheelchair?: No Wheel 50 ft with 2 turns (QC): 9 Wheel 150 ft (QC): 9 Stair Training Stair Training: Handrails/: 2 handrails #of Steps: 4 1 Step (curb) (QC): 4 4 Steps (QC): 4 12 Steps (QC): 88 Stairs: Pattern: Reciprocal Balance Picking up an Object (QC): 4 (CGA using a commercial lines account executive) ADL-Treatment Eating (QC): 6 Oral Hygiene (QC): 6 Shower/Bathe Self (QC): 5 Upper Body Dressing (QC): 6 Lower Body Dressing (QC): 6 On/Off Footwear (QC): 6 Toileting Hygiene (QC): 6 Toilet Transfer (QC): 6 Assessment/Plan Assessment and Plan Assess & Plan/Chief Complaint Assessment: s/p CABG COPD HTN HLP DM CKD AF Plan: Monitor O2 Pain control Monitor sugar PT OT 05/02/2022: Supportive care Monitor pain 05/03/2022: Monitor orthostasis Monitor sugar 05/04/2022: Supportive care Monitor blood pressure 05/05/2022: Hold Lopressor 05/06/2022: Supportive care Blood pressure monitoring (1) 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 His angina seems to be improved. He did not have a myocardial infarction and his ejection fraction is normal. The records from the outside hospital did not show any indication of postoperative atrial fibrillation. He should continue on guideline directed medical therapy with aspirin and statin medication. I stopped his beta-nghia and diuretics due to low blood pressures. He did not h ave a history of hypertension prior to this recent diagnosis of coronary artery disease. I suspect his peripheral edema is related to having vein harvesting from both legs during the surgery as well as volume administered around the time of surgery. He does not have heart failure. (2) Primary hypertension Assessment & Plan: As above, his blood pressures have been running low so I stopped the beta-nghia and diuretic. We will continue to monitor his blood pressures closely. (3) Mixed hyperlipidemia Assessment & Plan: Continue statin medication. (4) Type 2 diabetes mellitus with complication Assessment & Plan: This is being managed by the hospitalist. CHRIS ROE DO May 06, 2022 05:58
[2022-05-06] MEDS: KCL 20 MEQ TAB (K-DUR) PO SCH (07:14)
[2022-05-06 07:19] VITALS: BP 115/66
[2022-05-06 07:22] VITALS: BP 115/66
[2022-05-06] MEDS: ASPIRIN E.C. 81 MG (ECOTRIN) TAB PO SCH (08:39)
[2022-05-06] MEDS: PANTOPRAZOLE 40 MG (PROTONIX) TAB PO SCH (08:39)
[2022-05-06] MEDS: metFORMIN 500 MG (GLUCOPHAGE) TAB PO SCH (08:39)
[2022-05-06] MEDS: GABAPENTIN 300 MG (NEURONTIN) CAP PO SCH ×3 (08:39→20:40)
[2022-05-06] MEDS: DOCUSATE SODIUM 100 MG (COLACE) CAP PO SCH ×2 (08:39→20:40)
[2022-05-06] MEDS: polyethylene glycoL POWDER 17 GM (MIRALAX) PACK PO SCH ×2 (08:40→20:40)
[2022-05-06] MEDS: SENNA W/DOCUSATE (SENOKOT S) TABLET PO SCH ×2 (08:40→20:40)
--- NOTE | 2022-05-06 10:23 | Occupational Ther Daily Note ---
OT Current Status-Daily Note Subjective Pt denies pain, reports BP has been more stable this past weekend. Appearance Pt left sitting on side of bed, in room, all needs within reach at OT departure. Mental Status/Objective Patient Orientation: Person, Place, Situation ADL-Treatment Therapy Code Descriptions/Definitions Functional [place] Measure: 0=Not Assessed/NA 4=Minimal Assistance 1=Total Assistance 5=Supervision or Setup 2=Maximal Assistance 6=Modified [place] 3=Moderate Assistance 7=Complete IndependenceSCALE: Activities may be completed with or without assistive devices. 4-Qzuiuuvcut-nmablyk completes the activity by him/herself with no assistance from a helper. 5-Set-up or Clean-up Assistance-helper sets up or cleans up; patient completes activity. [place] assists only prior to or following the activity. 4-Supervision or Touching Assistance-helper provides verbal cues and/or touching/steadying and/or contact guard assistance as patient completes activity. Assistance may be provided throughout the activity or intermittently. 3-Partial/Moderate Assistance-helper does LESS THAN HALF the effort. [place] lifts, holds or supports trunk or limbs, but provides less than half the effort. 2-Substantial/Maximal Assistance-helper does MORE THAN HALF the effort. [place] lifts or holds trunk or limbs and provides more than half the effort. 7-Ytlidgsbb-hjzrjs does ALL the effort. Patient does none of the effort to complete the activity. Or, the assistance of 2 or more helpers is required for the patient to complete the activity. If activity was not attempted, code reason: 7-Patient Refused. 9-Not Applicable-not attempted and the patient did not perform the activity b efore the current illness, exacerbation or injury. 10-Not Attempted due to Environmental Limitations-(lack of equipment, weather restraints, etc.). 88-Not Attempted due to Medical Conditions or Safety Concerns. Eating (QC): 6 Oral Hygiene (QC): 6 On/Off Footwear: 6 Toileting Hygiene (QC): 6 Toilet Transfer (QC): 6 Pt already dressed for the day, declines shower. Other Treatment Pt ambulated >500 feet x2, no AD. As fatigue increases, slight unsteadiness observed. Cues given for improved foot clearance as pt has tendency to shuffle feet. Pt participated in UE exercises with 2# dumbbell. Focus on improving cardiovascular health, strength and endurance needed for adls. In order to adhere to sternal precautions, all shoulder exercises modified to 90 degrees with no simultaneous UE movement. Good tolerance throughout. 1x15. Pt also performed seated core exercises including modified sit up, marches, and straight leg lifts, and knee ups, 1x10. While standing, pt participated in [employer] board game. Focus on improving standing tolerance, cardiovascular health, balance and overall endurance. Pt tolerated well and able to stand for ~12 minutes before needing a seated rest break. No LOB during activity. No cues for problem solving or recall of rules needed during game play. Education OT Patient Education: Correct positioning, Progress toward Goal/Update tx plan, Purpose of tx/functional activities, Safety issues Teaching Recipient: Patient Teaching Methods: Discussion Response to Teaching: Verbalize Understanding, Return Demonstration OT Short Term Goals Short Term Goals Time Frame: May 03, 2022 Eatin Oral hygiene: 6 Toileting hygiene: 5 Shower/bathe self: 4 Upper body dressin Lower body dressin Putting on/taking off footwear: 6 OT Nursing Home Goals Nursing Home Goals Time Frame: May 07, 2022 Eating (QC): 6 Oral Hygiene (QC): 6 Toileting Hygiene (QC): 6 Shower/Bathe Self (QC): 6 Upper Body Dressing (QC): 6 Lower Body Dressing (QC): 6 On/Off Footwear (QC): 6 1=Demonstrate adherence to instructed precautions during ADL tasks. 2=Patient will verbalize/demonstrate understanding of assistive devices/modifications for ADL. 3=Patient will improve strength/tolerance for activity to enable patient to perform ADL's. OT Education/Plan Problem List/Assessment Assessment: Decreased Activ Tolerance, Decreased UE Strength, Impaired Funct Balance, Impaired I ADL's, Restricted Funct UE ROM Discharge Recommendations Plan/Recommendations: Continue POC Therapy Discharge Recommendati: Home & Family Treatment Plan/Plan of Care Treatment,Training & Education: Yes Patient would benefit from OT for education, treatment and training to promote independence in ADL's, mobility, safety and/or upper extremity function for ADL's. Plan of Care: ADL Retraining, Functional Mobility, Group Exercise/Act as Ind, UE Funct Exercise/Act Treatment Duration: May 07, 2022 Frequency: At least 5 of 7 days/Wk (IRF) Estimated Hrs Per Day: 1.5 hours per day (75-90 min/day ) Agreement: Yes Rehab Potential: Fair Time/GCodes Start Time: 09:30 Stop Time: 10:30 Total Time Billed (hr/min): 60 Billed Treatment Time 1 visit ADL (10 min) FA (20 min) EX x2 (30 min) Iris Garcia OT May 06, 2022 10:23
--- NOTE | 2022-05-06 11:37 | Physical Therapy Daily Note ---
PT Daily Note-Current Subjective Pt sitting on EOB with present at bedside, agreeable to PT treatment at this time. No c/o pain. Appearance Following session, pt seated at EOB with present and SCRIP CLERK in room taking blood sugar Mental Status Patient Orientation: Person, Place, Situation Transfers SCALE: Activities may be completed with or without assistive devices. 3-Cmlgggshrh-opnpedw completes the activity by him/herself with no assistance from a helper. 5-Set-up or Clean-up Assistance-helper sets up or cleans up; patient completes activity. [place] assists only prior to or following the activity. 4-Supervision or Touching Assistance-helper provides verbal cues and/or touching/steadying and/or contact guard assistance as patient completes activity. Assistance may be provided throughout the activity or intermittently. 3-Partial/Moderate Assistance-helper does LESS THAN HALF the effort. [place] lifts, holds or supports trunk or limbs, but provides less than half the effort. 2-Substantial/Maximal Assistance-helper does MORE THAN HALF the effort. [place] lifts or holds trunk or limbs and provides more than half the effort. 9-Ijlizkess-uciksv does ALL the effort. Patient does none of the effort to complete the activity. Or, the assistance of 2 or more helpers is required for the patient to complete the activity. If activity was not attempted, code reason: 7-Patient Refused. 9-Not Applicable-not attempted and the patient did not perform the activity before the current illness, exacerbation or injury. 10-Not Attempted due to Environmental Limitations-(lack of equipment, weather restraints, etc.). 88-Not Attempted due to Medical Conditions or Safety Concerns. Sit to Stand (QC): 5 Gait Training Distance: 500' x 2 Walk 150 ft (QC): 5 Gait Assistive Device: None Pt ambulates with wide BHARAT, occasionally running into items in the left visual field. with fatigue he has increased shuffling steps and increased sway side to side. Stair Training Stair Training: Handrails/: 2 handrails 12 Steps (QC): 4 Stairs: Pattern: Reciprocal 12 steps x 2 Exercises NuStep Minutes: 20 NuStep Workload: 5 Assessment Current Status: Good Progress Pt continues to have decreased endurance with ambulation training, he fatigues quickly. PT Short Term Goals Short Term Goals Time Frame: May 08, 2022 Roll Left & Right: 6 Sit to lyin Lying to sitting on side of be: 6 Sit to stand: 4 (SBA) Chair/hvd-zf-hsgok transfer: 4 (SBA) Walk 10 feet: 4 (SBA) Walk 50 feet with two turns: 4 (SBA) Walk 150 feet: 4 (SBA) PT Jail Goals Bull Wheel Worker Goals PT Bull Wheel Worker Goals Time Frame: May 22, 2022 Roll Left & Right (QC): 6 Sit to Lying (QC): 6 Lying-Sitting on Side/Bed(QC): 6 Sit to Stand (QC): 6 Chair/Fup-tk-Ggdgz Xfer(QC): 6 Toilet Transfer (QC): 6 Car Transfer (QC): 6 Does the Patient Walk: Yes Walk 10 feet (QC): 6 Walk 50ft with 2 Turns (QC): 6 Walk 150 ft (QC): 6 Walking 10ft on Uneven Surface: 6 1 Step (curb) (QC): 6 4 Steps (QC): 6 12 Steps (QC): 6 Picking up an Object (QC): 6 Wheel 50 feet with 2 turns (QC: 9 Wheel 150 feet: 9 PT Plan Problem List Problem List: Activity Tolerance, Functional Strength, Safety, Balance, Gait, Transfer, Bed Mobility, ROM Treatment/Plan Treatment Plan: Continue Plan of Care Treatment Plan: Bed Mobility, Education, Functional Activity [place], Functional Strength, Group Therapy, Gait, Safety, Therapeutic Exercise, Transfers Treatment Duration: May 22, 2022 Frequency: At least 5 of 7 days/Wk (IRF) Estimated Hrs Per Day: 1.5 hours per day Patient and/or Family Agrees t: Yes Time/GCodes Time In: 930 Time Out: 1030 Total Billed Treatment Time: 60 Total Billed Treatment 1 visit GT (20') EX (40') KETTY VARGAS PT May 06, 2022 11:37
--- NOTE | 2022-05-06 13:17 | Therapy Group Daily Note ---
Therapy Daily Group Note Patient Education Topic Home Safety, Exercises, Other List Below (Nutrition/Health) Exercises LE Seated Exercise, UE Exercise Session Ratio (pt:therapist): 4:1 Goal of Session: Home Safety Strategies, UE/LE Strengthing, Other (list) (Health/Nutrition) Goal Met for this Session: Yes Pt Benefit of Group: Contributions to Others, F/U Use of Strategies @Home, Increased Functional Safety, Increased Functional Strength, Improved Cognition, Recognition of Peers, Socialization Other/Notes Pt participated in Nutrition and health promotion group [facility]. Pt participated in group session, first with introductions (Name, where pt is from, and favorite place to watch fireworks). This group treatment was better than individual to address socialization and recognition of peers. Pt met goals of group as demonstrated by answering questions related to overall health and nutrition, and participating in UE/LE seated exercises. Pt demonstrated the following abilities during group activity: good problem solving and safety skills, improved attention span and ability to participate in group without being distracted by the environment. Pt returned to his room via ambulation, up in chair post tx, family present at bedside, call light in reach and all needs met. Start Time: 12:00 Stop Time: 13:00 Total Billed Treatment Time: 60 Total Billed Treatment 1, GRP KETTY VARGAS PT May 06, 2022 13:17
[2022-05-06 19:48] VITALS: BP 102/55
[2022-05-06] MEDS: FINASTERIDE (PROSCAR) 5 MG TAB PO SCH (20:40)
[2022-05-06] MEDS: TAMSULOSIN 0.4 MG (FLOMAX) CAP PO SCH (20:40)
--- NOTE | 2022-05-07 06:12 | PM&R Progress Note ---
Subjective HPI/CC On Admission Date Seen by Provider: May 07, 2022 Time Seen by Provider: 12:30 Subjective/Events-last exam 05/07/2022: Pt is doing really well Discharge is planned for tomorrow No falls Blood sugars are improved Oxygen is good 05/06/2022: Patient doing really well Orthostasis has resolved No pain is reported No falls 05/05/2022: Patient doing really well Gaining strength Blood pressure much improved today No other concerns 05/04/2022: Pt doing a lot better Will evaluate whether Orthostasis occurs today Moving around well No pain 05/03/2022: Pt is doing pretty well Dizziness noted due to orthostasis Holding Lasix but initiating Lopressor ordered for Dr. Spears Checked meds and labs 05/02/2022: Pt moved to independent room Discharge planned for Friday Bowels are loose Dr. Spears was consulted Echocardiogram is pending Review of Systems General: Fatigue, Malaise Objective Exam Vital Signs Vital Signs Date Time Temp Pulse Resp B/P (MAP) Pulse Ox O2 Delivery O2 Flow Rate FiO2 05/07/22 09:22 Room Air 05/07/22 07:28 36.7 77 14 105/63 (77) 94 Capillary Refill : General Appearance: No Apparent Distress, WD/WN, Chronically ill HEENT: PERRL/EOMI, Normal ENT Inspection, Pharynx Normal Neck: Full Range of Motion, Normal Inspection, Non Tender, Supple, Carotid Bruit Respiratory: Chest Non Tender, Lungs Clear, No Accessory Muscle Use, No Respiratory Distress, Decreased Breath Sounds Cardiovascular: Regular Rate, Rhythm, No Edema, No Gallop, No JVD, No Murmur, Normal Peripheral Pulses Gastrointestinal: Normal Bowel Sounds, No Organomegaly, No Pulsatile Mass, Non Tender, Soft Back: Normal Inspection, No CVA Tenderness, No Vertebral Tenderness Extremity: Normal Capillary Refill, Normal Inspection, Normal Range of Motion, Non Tender, No Calf Tenderness, No Pedal Edema Neurologic/Psychiatric: Alert, Oriented x3, No Motor/Sensory Deficits, Normal Mood/Affect, Motor Weakness (generalized) Skin: Normal Color, Warm/Dry Lymphatic: No Adenopathy Results/Procedures Lab Laboratory Tests 05/07/22 06:05 Patient resulted labs reviewed. FIM Transfers Therapy Code Descriptions/Definitions Functional [place] Measure: 0=Not Assessed/NA 4=Minimal Assistance 1=Total Assistance 5=Supervision or Setup 2=Maximal Assistance 6=Modified [place] 3=Moderate Assistance 7=Complete IndependenceSCALE: Activities may be completed with or without assistive devices. 8-Agbgufhxgn-cwczjxo completes the activity by him/herself with no assistance from a helper. 5-Set-up or Clean-up Assistance-helper sets up or cleans up; patient completes activity. [place] assists only prior to or following the activity. 4-Supervision or Touching Assistance-helper provides verbal cues and/or touching/steadying and/or contact guard assistance as patient completes activity. Assistance may be provided throughout the activity or intermittently. 3-Partial/Moderate Assistance-helper does LESS THAN HALF the effort. [place] lifts, holds or supports trunk or limbs, but provides less than half the effort. 2-Substantial/Maximal Assistance-helper does MORE THAN HALF the effort. [place] lifts or holds trunk or limbs and provides more than half the effort. 0-Agxpskrrl-lruert does ALL the effort. Patient does none of the effort to complete the activity. Or, the assistance of 2 or more helpers is required for the patient to complete the activity. If activity was not attempted, code reason: 7-Patient Refused. 9-Not Applicable-not attempted and the patient did not perform the activity before the current illness, exacerbation or injury. 10-Not Attempted due to Environmental Limitations-(lack of equipment, weather restraints, etc.). 88-Not Attempted due to Medical Conditions or Safety Concerns. Roll Left to Right (QC): 6 Sit to Lying (QC): 6 Sit to Stand (QC): 5 Chair/Ikd-ag-Wcfoe Xfer(QC): 6 Car Transfer (QC): 4 Gait Training Does the Patient Walk?: Yes Distance: 500' x 2 Walk 10 feet (QC): 6 Walk 50 ft with 2 Turns(QC): 6 Walk 150 ft (QC): 5 Walking 10ft/uneven surface-QC: 6 Gait Persons Needed: 1 Gait Assistive Device: None Wheelchair Training Does the Pt Use a Wheelchair?: No Wheel 50 ft with 2 turns (QC): 9 Wheel 150 ft (QC): 9 Stair Training Stair Training: Handrails/: 2 handrails #of Steps: 4 1 Step (curb) (QC): 4 4 Steps (QC): 4 12 Steps (QC): 4 Stairs: Pattern: Reciprocal Balance Picking up an Object (QC): 4 (CGA using a watcher autom[employer] goods) ADL-Treatment Eating (QC): 6 Oral Hygiene (QC): 6 Shower/Bathe Self (QC): 5 Upper Body Dressing (QC): 6 Lower Body Dressing (QC): 6 On/Off Footwear (QC): 6 Toileting Hygiene (QC): 6 Toilet Transfer (QC): 6 Assessment/Plan Assessment and Plan Assess & Plan/Chief Complaint Assessment: s/p CABG COPD HTN HLP DM CKD AF Plan: Monitor O2 Pain control Monitor sugar PT OT 05/02/2022: Supportive care Monitor pain 05/03/2022: Monitor orthostasis Monitor sugar 05/04/2022: Supportive care Monitor blood pressure 05/05/2022: Hold Lopressor 05/06/2022: Supportive care Blood pressure monitoring 05/07/2022: Monitor closely DC soon (1) 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 His angina seems to be improved. He did not have a myocardial infarction and his ejection fraction is normal. The records from the outside hospital did not show any indication of postoperative atrial fibrillation. He should continue on guideline directed medical therapy with aspirin and statin medication. I stopped his beta-nghia and diuretics due to low blood pressures. He did not have a history of hypertension prior to this recent diagnosis of coronary artery disease. I suspect his peripheral edema is related to having vein harvesting from both legs during the surgery as well as volume administered around the time of surgery. He does not have heart failure. (2) Primary hypertension Assessment & Plan: As above, his blood pressures have been running low so I stopped the beta-nghia and diuretic. We will continue to monitor his blood pressures closely. (3) Mixed hyperlipidemia Assessment & Plan: Continue statin medication. (4) Type 2 diabetes mellitus with complication Assessment & Plan: This is being managed by the hospitalist. CHRIS ROE DO May 07, 2022 06:11
[2022-05-07 06:13] LABS: BASOPHILS # (AUTO) 0.1 10^3/uL (0.0-0.1); BASOPHILS % (AUTO) 1 % (0-10); EOSINOPHILS # (AUTO) 0.5 10^3/uL (0.0-0.3); EOSINOPHILS % (AUTO) 5 % (0-10); HEMATOCRIT 33 % (40-54); HEMOGLOBIN 10.2 g/dL (13.3-17.7); LYMPHOCYTES # (AUTO) 0.9 10^3/uL (1.0-4.0); LYMPHOCYTES % (AUTO) 10 % (12-44); MEAN CORPUSCULAR HEMOGLOBIN 29 pg (25-34); MEAN CORPUSCULAR HGB CONC 31 g/dL (32-36); MEAN CORPUSCULAR VOLUME 95 fL (80-99); MEAN PLATELET VOLUME 9.4 fL (9.0-12.2); MONOCYTES # (AUTO) 0.8 10^3/uL (0.0-1.0); MONOCYTES % (AUTO) 8 % (0-12); NEUTROPHILS # (AUTO) 7.2 10^3/uL (1.8-7.8); NEUTROPHILS % (AUTO) 76 % (42-75); PLATELET COUNT 292 10^3/uL (130-400); WHITE BLOOD COUNT 9.5 10^3/uL (4.3-11.0)
[2022-05-07 06:24] LABS: ALBUMIN 3.2 GM/DL (3.2-4.5); POTASSIUM 4.6 MMOL/L (3.6-5.0)
[2022-05-07 06:25] LABS: CALCIUM 8.9 MG/DL (8.5-10.1)
[2022-05-07 06:27] LABS: TOTAL PROTEIN 6.1 GM/DL (6.4-8.2)
[2022-05-07 06:29] LABS: BILIRUBIN,TOTAL 0.5 MG/DL (0.1-1.0)
[2022-05-07 06:30] LABS: CREATININE SERUM 1.57 MG/DL (0.60-1.30)
[2022-05-07] MEDS: KCL 20 MEQ TAB (K-DUR) PO SCH (06:41)
[2022-05-07] MEDS: inSUlin ASPART (NovoLOG) 1 UNIT/0.01 ML (CHARGE PER UNIT) SC SCH ×7 (06:46→21:57)
[2022-05-07 07:28] VITALS: BP 105/63
--- NOTE | 2022-05-07 08:23 | Occupational Ther Daily Note ---
OT Current Status-Daily Note Subjective Pt denies pain, agreeable to shower. Appearance Pt left sitting on side of bed, in the room, all needs within each. Mental Status/Objective Patient Orientation: Person, Place, Situation ADL-Treatment Therapy Code Descriptions/Definitions Functional [place] Measure: 0=Not Assessed/NA 4=Minimal Assistance 1=Total Assistance 5=Supervision or Setup 2=Maximal Assistance 6=Modified [place] 3=Moderate Assistance 7=Complete IndependenceSCALE: Activities may be completed with or without assistive devices. 6-Lvzlgitxan-akhxrmj completes the activity by him/herself with no assistance from a helper. 5-Set-up or Clean-up Assistance-helper sets up or cleans up; patient completes activity. [place] assists only prior to or following the activity. 4-Supervision or Touching Assistance-helper provides verbal cues and/or touching/steadying and/or contact guard assistance as patient completes activi ty. Assistance may be provided throughout the activity or intermittently. 3-Partial/Moderate Assistance-helper does LESS THAN HALF the effort. [place] lifts, holds or supports trunk or limbs, but provides less than half the effort. 2-Substantial/Maximal Assistance-helper does MORE THAN HALF the effort. [place] lifts or holds trunk or limbs and provides more than half the effort. 1-Perpmqvxl-jqveab does ALL the effort. Patient does none of the effort to complete the activity. Or, the assistance of 2 or more helpers is required for the patient to complete the activity. If activity was not attempted, code reason: 7-Patient Refused. 9-Not Applicable-not attempted and the patient did not perform the activity before the current illness, exacerbation or injury. 10-Not Attempted due to Environmental Limitations-(lack of equipment, weather restraints, etc.). 88-Not Attempted due to Medical Conditions or Safety Concerns. Eating (QC): 6 Oral Hygiene (QC): 6 Shower/Bathe Self (QC): 6 Upper Body Dressing (QC): 6 Lower Body Dressing (QC): 6 On/Off Footwear: 6 Toileting Hygiene (QC): 6 Toilet Transfer (QC): 6 Pt reports SOB post adls, O2 96%. Education on energy conservation strategies and taking breaks as needed. Education provided to on home modifications/adaptations in order to prevent pt from breaking sternal precautions. Education OT Patient Education: Energy conservation, Modified ADL techniques, Progress toward Goal/Update tx plan Teaching Recipient: Patient, Family Teaching Methods: Demonstration Response to Teaching: Verbalize Understanding, Return Demonstration OT Short Term Goals Short Term Goals Time Frame: May 03, 2022 Eatin Oral hygiene: 6 Toileting hygiene: 5 Shower/bathe self: 4 Upper body dressin Lower body dressin Putting on/taking off footwear: 6 OT [facility] Goals Fat Purification Worker Goals Time Frame: May 07, 2022 Eating (QC): 6 (met) Oral Hygiene (QC): 6 (met) Toileting Hygiene (QC): 6 (met) Shower/Bathe Self (QC): 6 (met) Upper Body Dressing (QC): 6 (met) Lower Body Dressing (QC): 6 (met) On/Off Footwear (QC): 6 (met) 1=Demonstrate adherence to instructed precautions during ADL tasks. 2=Patient will verbalize/demonstrate understanding of assistive devices/modifications for ADL. 3=Patient will improve strength/tolerance for activity to enable patient to perform ADL's. OT Education/Plan Problem List/Assessment Assessment: Decreased Activ Tolerance, Impaired I ADL's, Restricted Funct UE ROM Discharge Recommendations Plan/Recommendations: Continue POC Therapy Discharge Recommendati: Home & Family Treatment Plan/Plan of Care Treatment,Training & Education: Yes Patient would benefit from OT for education, treatment and training to promote independence in ADL's, mobility, safety and/or upper extremity function for ADL's. Plan of Care: ADL Retraining, Functional Mobility, Group Exercise/Act as Ind, UE Funct Exercise/Act Treatment Duration: May 07, 2022 Frequency: At least 5 of 7 days/Wk (IRF) Estimated Hrs Per Day: 1.5 hours per day (75-90 min/day ) Agreement: Yes Rehab Potential: Fair Time/GCodes Start Time: 07:25 Stop Time: 08:20 Total Time Billed (hr/min): 55 Billed Treatment Time 1 visit ADL x4 Iris Garcia OT May 07, 2022 08:23
[2022-05-07] MEDS: ASPIRIN E.C. 81 MG (ECOTRIN) TAB PO SCH (08:54)
[2022-05-07] MEDS: SENNA W/DOCUSATE (SENOKOT S) TABLET PO SCH ×2 (08:54→21:38)
[2022-05-07] MEDS: GABAPENTIN 300 MG (NEURONTIN) CAP PO SCH ×3 (08:54→21:38)
[2022-05-07] MEDS: polyethylene glycoL POWDER 17 GM (MIRALAX) PACK PO SCH ×2 (08:54→21:39)
[2022-05-07] MEDS: DOCUSATE SODIUM 100 MG (COLACE) CAP PO SCH ×2 (08:54→21:38)
[2022-05-07] MEDS: metFORMIN 500 MG (GLUCOPHAGE) TAB PO SCH (08:54)
[2022-05-07] MEDS: PANTOPRAZOLE 40 MG (PROTONIX) TAB PO SCH (08:54)
--- NOTE | 2022-05-07 11:49 | Occupational Ther Daily Note ---
OT Current Status-Daily Note Subjective Pt denies pain, agreeable to treatment. Appearance Pt left sitting on side of bed, all needs within reach at OT departure. Mental Status/Objective Patient Orientation: Person, Place, Situation ADL-Treatment Therapy Code Descriptions/Definitions Functional [place] Measure: 0=Not Assessed/NA 4=Minimal Assistance 1=Total Assistance 5=Supervision or Setup 2=Maximal Assistance 6=Modified [place] 3=Moderate Assistance 7=Complete IndependenceSCALE: Activities may be completed with or without assistive devices. 0-Kkopjbdrbq-beheazb completes the activity by him/herself with no assistance from a helper. 5-Set-up or Clean-up Assistance-helper sets up or cleans up; patient completes activity. [place] assists only prior to or following the activity. 4-Supervision or Touching Assistance-helper provides verbal cues and/or touching/steadying and/or contact guard assistance as patient completes acti vity. Assistance may be provided throughout the activity or intermittently. 3-Partial/Moderate Assistance-helper does LESS THAN HALF the effort. [place] lifts, holds or supports trunk or limbs, but provides less than half the effort. 2-Substantial/Maximal Assistance-helper does MORE THAN HALF the effort. [place] lifts or holds trunk or limbs and provides more than half the effort. 0-Hueyygaee-oihprb does ALL the effort. Patient does none of the effort to complete the activity. Or, the assistance of 2 or more helpers is required for the patient to complete the activity. If activity was not attempted, code reason: 7-Patient Refused. 9-Not Applicable-not attempted and the patient did not perform the activity before the current illness, exacerbation or injury. 10-Not Attempted due to Environmental Limitations-(lack of equipment, weather restraints, etc.). 88-Not Attempted due to Medical Conditions or Safety Concerns. Other Treatment Pt ambulated ~300 feet x2, no AD. As fatigue increases, slight unsteadiness observed. Cues given for improved foot clearance as pt has tendency to shuffle feet. Pt participated in UE exercises with 2-3# dumbbell. Focus on improving cardiovascular health, strength and endurance needed for adls. In order to adhere to sternal precautions, all shoulder exercises modified to 90 degrees with no simultaneous UE movement. Good tolerance throughout. 2x15. Pt participated in several standing therapeutic activities focusing on improving balance, standing tolerance, cardiovascular health, endurance, safety, and posture needed for functional tasks. Pt carried small bowel of water in a strai ght line and then zigzag between cones. Intermittent cga needed for safety, especially as fatigue increases. Increased cues needed for safety during zigzag task. Pt also stood to toss robb bags into bucket. Focus on stepping strategy to improve balance and fall prevention. At times, pt crosses legs thus increasing fall risk. Again, intermittent cga-min a needed when stepping through. Education OT Patient Education: Correct positioning, Energy conservation, Modified ADL techniques, Progress toward Goal/Update tx plan, Purpose of tx/functional activities, Safety issues Teaching Recipient: Patient Teaching Methods: Demonstration, Discussion Response to Teaching: Verbalize Understanding, Return Demonstration, Reinforcement Needed OT Short Term Goals Short Term Goals Time Frame: May 03, 2022 Eatin Oral hygiene: 6 Toileting hygiene: 5 Shower/bathe self: 4 Upper body dressin Lower body dressin Putting on/taking off footwear: 6 OT Blowing Engineer Goals Nursing Home Goals Time Frame: May 07, 2022 Eating (QC): 6 (met) Oral Hygiene (QC): 6 (met) Toileting Hygiene (QC): 6 (met) Shower/Bathe Self (QC): 6 (met) Upper Body Dressing (QC): 6 (met) Lower Body Dressing (QC): 6 (met) On/Off Footwear (QC): 6 (met) 1=Demonstrate adherence to instructed precautions during ADL tasks. 2=Patient will verbalize/demonstrate understanding of assistive devices/modifications for ADL. 3=Patient will improve strength/tolerance for activity to enable patient to perform ADL's. OT Education/Plan Problem List/Assessment Assessment: Decreased Activ Tolerance, Decreased Safety Aware, Decreased UE Strength, Impaired Funct Balance, Impaired I ADL's, Restricted Funct UE ROM Discharge Recommendations Plan/Recommendations: Continue POC Treatment Plan/Plan of Care Treatment,Training & Education: Yes Patient would benefit from OT for education, treatment and training to promote independence in ADL's, mobility, safety and/or upper extremity function for ADL' s. Plan of Care: ADL Retraining, Functional Mobility, Group Exercise/Act as Ind, UE Funct Exercise/Act Treatment Duration: May 07, 2022 Frequency: At least 5 of 7 days/Wk (IRF) Estimated Hrs Per Day: 1.5 hours per day (75-90 min/day ) Agreement: Yes Rehab Potential: Fair Time/GCodes Start Time: 11:15 Stop Time: 11:50 Total Time Billed (hr/min): 35 Billed Treatment Time 1 visit FA (15 min) EX (20 min) Iris Garcia OT May 07, 2022 11:49
--- NOTE | 2022-05-07 12:06 | Physical Therapy Daily Note ---
PT Daily Note-Current Subjective Pt sitting in recliner upon arrival. Pt agrees to PT for QC scoring for d/c tomorrow. Pain Location: No Pain Reported Mental Status Patient Orientation: Person, Place, Time, Situation Transfers SCALE: Activities may be completed with or without assistive devices. 0-Ynspoajzbt-tmocwbm completes the activity by him/herself with no assistance from a helper. 5-Set-up or Clean-up Assistance-helper sets up or cleans up; patient completes activity. [place] assists only prior to or following the activity. 4-Supervision or Touching Assistance-helper provides verbal cues and/or touch ing/steadying and/or contact guard assistance as patient completes activity. Assistance may be provided throughout the activity or intermittently. 3-Partial/Moderate Assistance-helper does LESS THAN HALF the effort. [place] lifts, holds or supports trunk or limbs, but provides less than half the effort. 2-Substantial/Maximal Assistance-helper does MORE THAN HALF the effort. [place] lifts or holds trunk or limbs and provides more than half the effort. 8-Zxhuxksfn-hsmphr does ALL the effort. Patient does none of the effort to complete the activity. Or, the assistance of 2 or more helpers is required for the patient to complete the activity. If activity was not attempted, code reason: 7-Patient Refused. 9-Not Applicable-not attempted and the patient did not perform the activity before the current illness, exacerbation or injury. 10-Not Attempted due to Environmental Limitations-(lack of equipment, weather restraints, etc.). 88-Not Attempted due to Medical Conditions or Safety Concerns. Roll Left & Right (QC): 6 Sit to Lying (QC): 6 Lying to Sitting/Side of Bed(Q: 6 Sit to Stand (QC): 6 Chair/Wcq-pf-Tiyzl Xfer(QC): 6 Toilet Transfer (QC): 6 Car Transfer (QC): 6 Weight Bearing Full Weight Bearing Full Weight Bearing Gait Training Does the Patient Walk?: Yes Distance: 175', 500' Walk 10 feet (QC): 6 Walk 50 ft with 2 Turns(QC): 6 Walk 150 ft (QC): 6 Walking 10ft/uneven surface-QC: 6 Gait Assistive Device: None Wheelchair Training Does the Pt Use a Wheelchair?: No Stair Training Stair Training: Handrails/: 2 handrails #of Steps: 12 1 Step (curb) (QC): 6 4 Steps (QC): 6 12 Steps (QC): 6 Stairs: Pattern: Reciprocal Balance Picking up an Object (QC): 5 Exercises NuStep Minutes: 15 NuStep Workload: 5 Treatments Pt completes QC scoring items listed above. Pt also takes extended amb. in hallway & uses NuStep before returning to room to rest. All needs met, call light in hand. Assessment Current Status: Good Progress Pt has gained mobility & activity tolerance. PT Short Term Goals Short Term Goals Time Frame: May 08, 2022 Roll Left & Right: 6 Sit to lyin Lying to sitting on side of be: 6 Sit to stand: 4 (SBA) Chair/cgg-qg-rqibe transfer: 4 (SBA) Walk 10 feet: 4 (SBA) Walk 50 feet with two turns: 4 (SBA) Walk 150 feet: 4 (SBA) PT Fpc Goals Fpc Goals PT Windows Software Developer Goals Time Frame: May 22, 2022 Roll Left & Right (QC): 6 Sit to Lying (QC): 6 Lying-Sitting on Side/Bed(QC): 6 Sit to Stand (QC): 6 Chair/Zat-ii-Ljwhw Xfer(QC): 6 Toilet Transfer (QC): 6 Car Transfer (QC): 6 Does the Patient Walk: Yes Walk 10 feet (QC): 6 Walk 50ft with 2 Turns (QC): 6 Walk 150 ft (QC): 6 Walking 10ft on Uneven Surface: 6 1 Step (curb) (QC): 6 4 Steps (QC): 6 12 Steps (QC): 6 Picking up an Object (QC): 6 Wheel 50 feet with 2 turns (QC: 9 Wheel 150 feet: 9 PT Plan Treatment/Plan Treatment Plan: Continue Plan of Care Treatment Plan: Bed Mobility, Education, Functional Activity [place], Functional Strength, Group Therapy, Gait, Safety, Therapeutic Exercise, Transfers Treatment Duration: May 22, 2022 Frequency: At least 5 of 7 days/Wk (IRF) Estimated Hrs Per Day: 1.5 hours per day Patient and/or Family Agrees t: Yes Time/GCodes Time In: 1000 Time Out: 1100 Total Billed Treatment Time: 60 Total Billed Treatment 1, GT (20m), FA x2 (25m) & EX (15m) COURTNEY OYO MASTER ELECTRICIAN May 07, 2022 12:06
--- NOTE | 2022-05-07 15:31 | Physical Therapy Daily Note ---
PT Daily Note-Current Subjective Pt laying Supine in bed upon arrival. Sp present. Pt agrees to PT. Pain Location: No Pain Reported Mental Status Patient Orientation: Person, Place, Time, Situation Transfers SCALE: Activities may be completed with or without assistive devices. 1-Gojarewjgp-hznynde completes the activity by him/herself with no assistance from a helper. 5-Set-up or Clean-up Assistance-helper sets up or cleans up; patient completes activity. [place] assists only prior to or following the activity. 4-Supervision or Touching Assistance-helper provides verbal cues and/or touching/steadying and/or contact guard assistance as patient completes activity. Assistance may be provided throughout the activity or intermittently. 3-Partial/Moderate Assistance-helper does LESS THAN HALF the effort. [place] lifts, holds or supports trunk or limbs, but provides less than half the effort. 2-Substantial/Maximal Assistance-helper does MORE THAN HALF the effort. [place] lifts or holds trunk or limbs and provides more than half the effort. 3-Kbdxeyheu-rdvvlg does ALL the effort. Patient does none of the effort to complete the activity. Or, the assistance of 2 or more helpers is required for the patient to complete the activity. If activity was not attempted, code reason: 7-Patient Refused. 9-Not Applicable-not attempted and the patient did not perform the activity before the current illness, exacerbation or injury. 10-Not Attempted due to Environmental Limitations-(lack of equipment, weather restraints, etc.). 88-Not Attempted due to Medical Conditions or Safety Concerns. Sit to Stand (QC): 6 Weight Bearing Full Weight Bearing Full Weight Bearing Exercises Standing: Hip Abduction, Hamstring curls, Heel/toe raises, Marching Standing Reps: 15 Treatments Pt & Sp discuss with SOLAR ENERGY SYSTEMS ENGINEER progress achieved, d/c process, continued therapy & safety in Pt educ. tx. Pt resting in bed at end of tx. All needs met, call light in hand. Assessment Current Status: Good Progress Pt feels comfortable with d/c tomorrow as does Sp and no further questions at this time. PT Short Term Goals Short Term Goals Time Frame: May 08, 2022 Roll Left & Right: 6 Sit to lyin Lying to sitting on side of be: 6 Sit to stand: 4 (SBA) Chair/kpy-im-eflmk transfer: 4 (SBA) Walk 10 feet: 4 (SBA) Walk 50 feet with two turns: 4 (SBA) Walk 150 feet: 4 (SBA) PT Penitentiary Goals Penitentiary Goals PT Oracle Applications Developer Goals Time Frame: May 22, 2022 Roll Left & Right (QC): 6 Sit to Lying (QC): 6 Lying-Sitting on Side/Bed(QC): 6 Sit to Stand (QC): 6 Chair/Hnd-kt-Nhoqr Xfer(QC): 6 Toilet Transfer (QC): 6 Car Transfer (QC): 6 Does the Patient Walk: Yes Walk 10 feet (QC): 6 Walk 50ft with 2 Turns (QC): 6 Walk 150 ft (QC): 6 Walking 10ft on Uneven Surface: 6 1 Step (curb) (QC): 6 4 Steps (QC): 6 12 Steps (QC): 6 Picking up an Object (QC): 6 Wheel 50 feet with 2 turns (QC: 9 Wheel 150 feet: 9 PT Plan Treatment/Plan Treatment Plan: Continue Plan of Care Treatment Plan: Bed Mobility, Education, Functional Activity [place], Functional Strength, Group Therapy, Gait, Safety, Therapeutic Exercise, Transfers Treatment Duration: May 22, 2022 Frequency: At least 5 of 7 days/Wk (IRF) Estimated Hrs Per Day: 1.5 hours per day Patient and/or Family Agrees t: Yes Time/GCodes Time In: 1345 Time Out: 1415 Total Billed Treatment Time: 30 Total Billed Treatment 1, FA (15m) & EX (15m) COURTNEY YOO SOLAR ENERGY SYSTEMS ENGINEER May 07, 2022 15:31
[2022-05-07 20:30] VITALS: BP 133/74
[2022-05-07] MEDS: FINASTERIDE (PROSCAR) 5 MG TAB PO SCH (21:38)
[2022-05-07] MEDS: TAMSULOSIN 0.4 MG (FLOMAX) CAP PO SCH (21:38)
[2022-05-08] MEDS ORDERED: ASPI-1238 PO (05:50)
[2022-05-08] MEDS ORDERED: INSU100I29 SC (05:50)
--- NOTE | 2022-05-08 05:50 | Discharge Summary ---
Diagnosis/Chief Complaint Date of Admission May 01, 2022 at 13:00 Date of Discharge Discharge Date: May 08, 2022 Discharge Summary Discharge Physical Examination Allergies: Coded Allergies: No Known Drug Allergies (Unverified , 09/10/12) Vitals & I&Os Vital Signs Date Time Temp Pulse Resp B/P (MAP) Pulse Ox O2 Delivery O2 Flow Rate FiO2 05/08/22 09:39 Room Air 05/08/22 07:34 36.3 75 16 111/78 (89) 96 Hospital Course Labs (last 24 hrs) Laboratory Tests 05/01/22 15:29: Glucometer 280H 05/01/22 20:17: Glucometer 182H 05/02/22 05:58: Glucometer 100 05/02/22 06:21: White Blood Count 9.1, Red Blood Count 3.98L, Hemoglobin 11.7L, Hematocrit 35L, Mean Corpuscular Volume 89, Mean Corpuscular Hemoglobin 29, Mean Corpuscular Hemoglobin Concent 33, Red Cell Distribution Width 13.1, Platelet Count 248, Mean Platelet Volume 9.6, Immature Granulocyte % (Auto) 1, Neutrophils (%) (Auto) 70, Lymphocytes (%) (Auto) 13, Monocytes (%) (Auto) 9, Eosinophils (%) (Auto) 7, Basophils (%) (Auto) 0, Neutrophils # (Auto) 6.4, Lymphocytes # (Auto) 1.2, Monocytes # (Auto) 0.9, Eosinophils # (Auto) 0.6H, Basophils # (Auto) 0.0, Immature Granulocyte # (Auto) 0.1, Sodium Level 140, Potassium Level 3.7, Chloride Level 104, Carbon Dioxide Level 26, Anion Gap 10, Blood Urea Nitrogen 17, Creatinine 1.17, Estimat Glomerular Filtration Rate 65, BUN/Creatinine Ratio 15, Glucose Level 101, Calcium Level 8.5, Corrected Calcium 9.1, Total Bilirubin 1.2H, Aspartate Amino Transf (AST/SGOT) 21, Alanine Aminotransferase (ALT/SGPT) 22, Alkaline Phosphatase 50, Total Protein 6.0L, Albumin 3.3 05/02/22 10:56: Glucometer 181H 05/02/22 15:41: Glucometer 224H 05/02/22 20:22: Glucometer 156H 05/03/22 05:51: Glucometer 187H 05/03/22 08:06: Glucometer 269H 05/03/22 11:25: Glucometer 261H 05/03/22 15:24: Glucometer 133H 05/03/22 20:23: Glucometer 301H 05/04/22 06:00: Glucometer 184H 05/04/22 10:51: Glucometer 84 05/04/22 15:23: Glucometer 111H 05/04/22 20:31: Glucometer 103 05/05/22 05:47: Glucometer 124H 05/05/22 10:49: Glucometer 185H 05/05/22 15:07: Glucometer 168H 05/05/22 20:08: Glucometer 211H 05/06/22 05:44: Glucometer 145H 05/06/22 11:16: Glucometer 181H 05/06/22 15:32: Glucometer 95 05/06/22 20:05: Glucometer 185H 05/07/22 06:05: White Blood Count 9.5, Red Blood Count 3.47L, Hemoglobin 10.2L, Hematocrit 33L, Mean Corpuscular Volume 95, Mean Corpuscular Hemoglobin 29, Mean Corpuscular Hemoglobin Concent 31L, Red Cell Distribution Width 13.2, Platelet Count 292, Mean Platelet Volume 9.4, Immature Granulocyte % (Auto) 1, Neutrophils (%) (Auto) 76H, Lymphocytes (%) (Auto) 10L, Monocytes (%) (Auto) 8, Eosinophils (%) (Auto) 5, Basophils (%) (Auto) 1, Neutrophils # (Auto) 7.2, Lymphocytes # (Auto) 0.9L, Monocytes # (Auto) 0.8, Eosinophils # (Auto) 0.5H, Basophils # (Auto) 0.1, Immature Granulocyte # (Auto) 0.1, Sodium Level 137, Potassium Level 4.6, Chloride Level 106, Carbon Dioxide Level 23, Anion Gap 8, Blood Urea Nitrogen 23H, Creatinine 1.57H, Estimat Glomerular Filtration Rate 45, BUN/Creatinine Ratio 15, Glucose Level 154H, Calcium Level 8.9, Corrected Calcium 9.5, Total Bilirubin 0.5, Aspartate Amino Transf (AST/SGOT) 11, Alanine Aminotransferase (ALT/SGPT) 14, Alkaline Phosphatase 65, Total Protein 6.1L, Albumin 3.2 05/07/22 10:45: Glucometer 131H 05/07/22 15:21: Glucometer 198H 05/07/22 20:28: Glucometer 150H 05/08/22 05:46: Glucometer 154H Pending Labs Laboratory Tests 05/01/22 15:29: Glucometer 280 05/01/22 20:17: Glucometer 182 05/02/22 05:58: Glucometer 100 05/02/22 06:21: White Blood Count 9.1, Red Blood Count 3.98, Hemoglobin 11.7, Hematocrit 35, Mean Corpuscular Volume 89, Mean Corpuscular Hemoglobin 29, Mean Corpuscular Hemoglobin Concent 33, Red Cell Distribution Width 13.1, Platelet Count 248, Mean Platelet Volume 9.6, Immature Granulocyte % (Auto) 1, Neutrophils (%) (Auto) 70, Lymphocytes (%) (Auto) 13, Monocytes (%) (Auto) 9, Eosinophils (%) (Auto) 7, Basophils (%) (Auto) 0, Neutrophils # (Auto) 6.4, Lymphocytes # (Auto) 1.2, Monocytes # (Auto) 0.9, Eosinophils # (Auto) 0.6, Basophils # (Auto) 0.0, Immature Granulocyte # (Auto) 0.1, Sodium Level 140, Potassium Level 3.7, Chloride Level 104, Carbon Dioxide Level 26, Anion Gap 10, Blood Urea Nitrogen 17, Creatinine 1.17, Estimat Glomerular Filtration Rate 65, BUN/Creatinine Ratio 15, Glucose Level 101, Calcium Level 8.5, Corrected Calcium 9.1, Total Bilirubin 1.2, Aspartate Amino Transf (AST/SGOT) 21, Alanine Aminotransferase (ALT/SGPT) 22, Alkaline Phosphatase 50, Total Protein 6.0, Albumin 3.3 05/02/22 10:56: Glucometer 181 05/02/22 15:41: Glucometer 224 05/02/22 20:22: Glucometer 156 05/03/22 05:51: Glucometer 187 05/03/22 08:06: Glucometer 269 05/03/22 11:25: Glucometer 261 05/03/22 15:24: Glucometer 133 05/03/22 20:23: Glucometer 301 05/04/22 06:00: Glucometer 184 05/04/22 10:51: Glucometer 84 05/04/22 15:23: Glucometer 111 05/04/22 20:31: Glucometer 103 05/05/22 05:47: Glucometer 124 05/05/22 10:49: Glucometer 185 05/05/22 15:07: Glucometer 168 05/05/22 20:08: Glucometer 211 05/06/22 05:44: Glucometer 145 05/06/22 11:16: Glucometer 181 05/06/22 15:32: Glucometer 95 05/06/22 20:05: Glucometer 185 05/07/22 06:05: White Blood Count 9.5, Red Blood Count 3.47, Hemoglobin 10.2, Hematocrit 33, Mean Corpuscular Volume 95, Mean Corpuscular Hemoglobin 29, Mean Corpuscular Hemoglobin Concent 31, Red Cell Distribution Width 13.2, Platelet Count 292, Mean Platelet Volume 9.4, Immature Granulocyte % (Auto) 1, Neutrophils (%) (Auto) 76, Lymphocytes (%) (Auto) 10, Monocytes (%) (Auto) 8, Eosinophils (%) (Auto) 5, Basophils (%) (Auto) 1, Neutrophils # (Auto) 7.2, Lymphocytes # (Auto) 0.9, Monocytes # (Auto) 0.8, Eosinophils # (Auto) 0.5, Basophils # (Auto) 0.1, Immature Granulocyte # (Auto) 0.1, Sodium Level 137, Potassium Level 4.6, Ch [place]or[place] Level 106, Carbon Dioxide Level 23, Anion Gap 8, Blood Urea Nitrogen 23, Creatinine 1.57, Estimat Glomerular Filtration Rate 45, BUN/Creatinine Ratio 15, Glucose Level 154, Calcium Level 8.9, Corrected Calcium 9.5, Total Bilirubin 0.5, Aspartate Amino Transf (AST/SGOT) 11, Alanine Aminotransferase (ALT/SGPT) 14, Alkaline Phosphatase 65, Total Protein 6.1, Albumin 3.2 05/07/22 10:45: Glucometer 131 05/07/22 15:21: Glucometer 198 05/07/22 20:28: Glucometer 150 05/08/22 05:46: Glucometer 154 Discharge Home Medications: Active Scripts Active Cephalexin 500 Mg Tablet 500 Mg PO TID Aspirin EC (Aspirin) 81 Mg Tablet.dr 81 Mg PO DAILY Levemir Flextouch (Insulin Detemir) 100 Unit/Ml (3 Ml) Insuln.pen 12 Units SC HS 14 Days Reported Neurontin (Gabapentin) 300 Mg Capsule 300 Mg PO 1200 PRN Januvia (Sitagliptin Phosphate) 100 Mg Tablet 100 Mg PO 1800 TAKES AFTER DINNER Metformin HCl 500 Mg Tablet 500 Mg PO DAILY Neurontin (Gabapentin) 300 Mg Capsule 300 Mg PO BID Finasteride 5 Mg Tablet 5 Mg PO HS Atorvastatin Calcium 40 Mg Tablet 40 Mg PO HS Flomax (Tamsulosin HCl) 0.4 Mg Cap 0.4 Mg PO HS Omeprazole 40 Mg Capsule.dr 40 Mg PO DAILY PRN Instructions to patient/family Please see electronic discharge instructions given to patient. 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 His angina seems to be improved. He did not have a myocardial infarction and his ejection fraction is normal. The records from the outside hospital did not show any indication of postoperative atrial fibrillation. He should continue on guideline directed medical therapy with aspirin and statin medication. I stopped his beta-nghia and diuretics due to low blood pressures. He did not have a history of hypertension prior to this recent diagnosis of coronary artery disease. I suspect his peripheral edema is related to having vein harvesting from both legs during the surgery as well as volume administered around the time of surgery. He does not have heart failure. (2) Primary hypertension Assessment & Plan: As above, his blood pressures have been running low so I stopped the beta-nghia and diuretic. We will continue to monitor his blood pressures closely. (3) Mixed hyperlipidemia Assessment & Plan: Continue statin medication. (4) Type 2 diabetes mellitus with complication Assessment & Plan: This is being managed by the hospitalist. CHRIS REO DO May 08, 2022 05:50
[2022-05-08] MEDS: KCL 20 MEQ TAB (K-DUR) PO SCH (06:50)
[2022-05-08] MEDS: inSUlin ASPART (NovoLOG) 1 UNIT/0.01 ML (CHARGE PER UNIT) SC SCH ×3 (07:03→12:13)
[2022-05-08 07:34] VITALS: BP 111/78
[2022-05-08] MEDS: ASPIRIN E.C. 81 MG (ECOTRIN) TAB PO SCH (09:35)
[2022-05-08] MEDS: GABAPENTIN 300 MG (NEURONTIN) CAP PO SCH (09:35)
[2022-05-08] MEDS: PANTOPRAZOLE 40 MG (PROTONIX) TAB PO SCH (09:35)
[2022-05-08] MEDS: DOCUSATE SODIUM 100 MG (COLACE) CAP PO SCH (09:35)
[2022-05-08] MEDS: metFORMIN 500 MG (GLUCOPHAGE) TAB PO SCH (09:35)
[2022-05-08] MEDS: SENNA W/DOCUSATE (SENOKOT S) TABLET PO SCH (09:35)
[2022-05-08] MEDS: polyethylene glycoL POWDER 17 GM (MIRALAX) PACK PO SCH (09:36)
[2022-05-08] MEDS ORDERED: CEPH500T PO (10:38)
--- NOTE | 2022-05-08 10:40 | Discharge Summary ---
Diagnosis/Chief Complaint Date of Admission May 01, 2022 at 13:00 Date of Discharge Discharge Date: May 08, 2022 Discharge Diagnosis Assessment: s/p CABG COPD HTN HLP DM CKD AF Plan: Monitor O2 Pain control Monitor sugar PT OT Discharge Summary Discharge Physical Examination Allergies: Coded Allergies: No Known Drug Allergies (Unverified , 09/10/12) Vitals & I&Os Vital Signs Date Time Temp Pulse Resp B/P (MAP) Pulse Ox O2 Delivery O2 Flow Rate FiO2 05/08/22 13:27 36.3 75 16 111/78 96 Room Air General Appearance: Alert, Oriented X3, Cooperative Respiratory: Clear to Auscultation Cardiovascular: Regular Rate Skin: Other (erythema left inner thigh incision) Neuro: Normal Gait, Normal Speech, Strength at 5/5 X4 Ext Psych/Mental Status: Mental Status NL Hospital Course Was the Problem List Reviewed?: Yes Pt had an uneventful 7 day hospital course after he was admitted following bypass surgery and slow recovery. Blood sugars remained stable. I did adjust his insulin down due to hypoglycemia. He was able to participate in all therapies. I did diagnose left incision line of his medial thigh cellulitis. I did place him on Keflex first dose 500 mg he will be on that TID for an additional 7 days. I sent in 21 pills into [facility]. Labs (last 24 hrs) Laboratory Tests 05/01/22 15:29: Glucometer 280H 05/01/22 20:17: Glucometer 182H 05/02/22 05:58: Glucometer 100 05/02/22 06:21: White Blood Count 9.1, Red Blood Count 3.98L, Hemoglobin 11.7L, Hematocrit 35L, Mean Corpuscular Volume 89, Mean Corpuscular Hemoglobin 29, Mean Corpuscular Hemoglobin Concent 33, Red Cell Distribution Width 13.1, Platelet Count 248, Mean Platelet Volume 9.6, Immature Granulocyte % (Auto) 1, Neutrophils (%) (Auto) 70, Lymphocytes (%) (Auto) 13, Monocytes (%) (Auto) 9, Eosinophils (%) (Auto) 7, Basophils (%) (Auto) 0, Neutrophils # (Auto) 6.4, Lymphocytes # (Auto) 1.2, Monocytes # (Auto) 0.9, Eosinophils # (Auto) 0.6H, Basophils # (Auto) 0.0, Immature Granulocyte # (Auto) 0.1, Sodium Level 140, Potassium Level 3.7, Chloride Level 104, Carbon Dioxide Level 26, Anion Gap 10, Blood Urea Nitrogen 17, Creatinine 1.17, Estimat Glomerular Filtration Rate 65, BUN/Creatinine Ratio 15, Glucose Level 101, Calcium Level 8.5, Corrected Calcium 9.1, Total Bilirubin 1.2H, Aspartate Amino Transf (AST/SGOT) 21, Alanine Aminotransferase (ALT/SGPT) 22, Alkaline Phosphatase 50, Total Protein 6.0L, Albumin 3.3 05/02/22 10:56: Glucometer 181H 05/02/22 15:41: Glucometer 224H 05/02/22 20:22: Glucometer 156H 05/03/22 05:51: Glucometer 187H 05/03/22 08:06: Glucometer 269H 05/03/22 11:25: Glucometer 261H 05/03/22 15:24: Glucometer 133H 05/03/22 20:23: Glucometer 301H 05/04/22 06:00: Glucometer 184H 05/04/22 10:51: Glucometer 84 05/04/22 15:23: Glucometer 111H 05/04/22 20:31: Glucometer 103 05/05/22 05:47: Glucometer 124H 05/05/22 10:49: Glucometer 185H 05/05/22 15:07: Glucometer 168H 05/05/22 20:08: Glucometer 211H 05/06/22 05:44: Glucometer 145H 05/06/22 11:16: Glucometer 181H 05/06/22 15:32: Glucometer 95 05/06/22 20:05: Glucometer 185H 05/07/22 06:05: White Blood Count 9.5, Red Blood Count 3.47L, Hemoglobin 10.2L, Hematocrit 33L, Mean Corpuscular Volume 95, Mean Corpuscular Hemoglobin 29, Mean Corpuscular Hemoglobin Concent 31L, Red Cell Distribution Width 13.2, Platelet Count 292, Mean Platelet Volume 9.4, Immature Granulocyte % (Auto) 1, Neutrophils (%) (Auto) 76H, Lymphocytes (%) (Auto) 10L, Monocytes (%) (Auto) 8, Eosinophils (%) (Auto) 5, Basophils (%) (Auto) 1, Neutrophils # (Auto) 7.2, Lymphocytes # (Auto) 0.9L, Monocytes # (Auto) 0.8, Eosinophils # (Auto) 0.5H, Basophils # (Auto) 0.1, Immature Granulocyte # (Auto) 0.1, Sodium Level 137, Potassium Level 4.6, Chloride Level 106, Carbon Dioxide Level 23, Anion Gap 8, Blood Urea Nitrogen 23H, Creatinine 1.57H, Estimat Glomerular Filtration Rate 45, BUN/Creatinine Ratio 15, Glucose Level 154H, Calcium Level 8.9, Corrected Calcium 9.5, Total Bilirubin 0.5, Aspartate Amino Transf (AST/SGOT) 11, Alanine Aminotransferase (ALT/SGPT) 14, Alkaline Phosphatase 65, Total Protein 6.1L, Albumin 3.2 05/07/22 10:45: Glucometer 131H 05/07/22 15:21: Glucometer 198H 05/07/22 20:28: Glucometer 150H 05/08/22 05:46: Glucometer 154H 05/08/22 10:49: Glucometer 179H Pending Labs Laboratory Tests 05/01/22 15:29: Glucometer 280 05/01/22 20:17: Glucometer 182 05/02/22 05:58: Glucometer 100 05/02/22 06:21: White Blood Count 9.1, Red Blood Count 3.98, Hemoglobin 11.7, Hematocrit 35, Mean Corpuscular Volume 89, Mean Corpuscular Hemoglobin 29, Mean Corpuscular Hemoglobin Concent 33, Red Cell Distribution Width 13.1, Platelet Count 248, Mean Platelet Volume 9.6, Immature Granulocyte % (Auto) 1, Neutrophils (%) (Auto) 70, Lymphocytes (%) (Auto) 13, Monocytes (%) (Auto) 9, Eosinophils (%) (Auto) 7, Basophils (%) (Auto) 0, Neutrophils # (Auto) 6.4, Lymphocytes # (Auto) 1.2, Monocytes # (Auto) 0.9, Eosinophils # (Auto) 0.6, Basophils # (Auto) 0.0, Immature Granulocyte # (Auto) 0.1, Sodium Level 140, Potassium Level 3.7, Chloride Level 104, Carbon Dioxide Level 26, Anion Gap 10, Blood Urea Nitrogen 17, Creatinine 1.17, Estimat Glomerular Filtration Rate 65, BUN/Creatinine Ratio 15, Glucose Level 101, Calcium Level 8.5, Corrected Calcium 9.1, Total Bilirubin 1.2, Aspartate Amino Transf (AST/SGOT) 21, Alanine Aminotransferase (ALT/SGPT) 22, Alkaline Phosphatase 50, Total Protein 6.0, Albumin 3.3 05/02/22 10:56: Glucometer 181 05/02/22 15:41: Glucometer 224 05/02/22 20:22: Glucometer 156 05/03/22 05:51: Glucometer 187 05/03/22 08:06: Glucometer 269 05/03/22 11:25: Glucometer 261 05/03/22 15:24: Glucometer 133 05/03/22 20:23: Glucometer 301 05/04/22 06:00: Glucometer 184 05/04/22 10:51: Glucometer 84 05/04/22 15:23: Glucometer 111 05/04/22 20:31: Glucometer 103 05/05/22 05:47: Glucometer 124 05/05/22 10:49: Glucometer 185 05/05/22 15:07: Glucometer 168 05/05/22 20:08: Glucometer 211 05/06/22 05:44: Glucometer 145 05/06/22 11:16: Glucometer 181 05/06/22 15:32: Glucometer 95 05/06/22 20:05: Glucometer 185 05/07/22 06:05: White Blood Count 9.5, Red Blood Count 3.47, Hemoglobin 10.2, Hematocrit 33, Mean Corpuscular Volume 95, Mean Corpuscular Hemoglobin 29, Mean Corpuscular Hemoglobin Concent 31, Red Cell Distribution Width 13.2, Platelet Count 292, Mean Platelet Volume 9.4, Immature Granulocyte % (Auto) 1, Neutrophils (%) (Auto) 76, Lymphocytes (%) (Auto) 10, Monocytes (%) (Auto) 8, Eosinophils (%) (Auto) 5, Basophils (%) (Auto) 1, Neutrophils # (Auto) 7.2, Lymphocytes # (Auto) 0.9, Monocytes # (Auto) 0.8, Eosinophils # (Auto) 0.5, Basophils # (Auto) 0.1, Immature Granulocyte # (Auto) 0.1, Sodium Level 137, Potassium Level 4.6, Chloride Level 106, Carbon Dioxide Level 23, Anion Gap 8, Blood Urea Nitrogen 23, Creatinine 1.57, Estimat Glomerular Filtration Rate 45, BUN/Creatinine Ratio 15, Glucose Level 154, Calcium Level 8.9, Corrected Calcium 9.5, Total Bilirubin 0.5, Aspartate Amino Transf (AST/SGOT) 11, Alanine Aminotransferase (ALT/SGPT) 14, Alkaline Phosphatase 65, Total Protein 6.1, Albumin 3.2 05/07/22 10:45: Glucometer 131 05/07/22 15:21: Glucometer 198 05/07/22 20:28: Glucometer 150 05/08/22 05:46: Glucometer 154 05/08/22 10:49: Glucometer 179 Discharge Home Medications: Active Scripts Active Cephalexin 500 Mg Tablet 500 Mg PO TID Aspirin EC (Aspirin) 81 Mg Tablet.dr 81 Mg PO DAILY Levemir Flextouch (Insulin Detemir) 100 Unit/Ml (3 Ml) Insuln.pen 12 Units SC HS 14 Days Reported Neurontin (Gabapentin) 300 Mg Capsule 300 Mg PO 1200 PRN Januvia (Sitagliptin Phosphate) 100 Mg Tablet 100 Mg PO 1800 TAKES AFTER DINNER Metformin HCl 500 Mg Tablet 500 Mg PO DAILY Neurontin (Gabapentin) 300 Mg Capsule 300 Mg PO BID Finasteride 5 Mg Tablet 5 Mg PO HS Atorvastatin Calcium 40 Mg Tablet 40 Mg PO HS Flomax (Tamsulosin HCl) 0.4 Mg Cap 0.4 Mg PO HS Omeprazole 40 Mg Capsule.dr 40 Mg PO DAILY PRN Instructions to patient/family Please see electronic discharge instructions given to patient. 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 His angina seems to be improved. He did not have a myocardial infarction and his ejection fraction is normal. The records from the outside hospital did not show any indication of postoperative atrial fibrillation. He should continue on guideline directed medical therapy with aspirin and statin medication. I stopped his beta-nghia and diuretics due to low blood pressures. He did not have a history of hypertension prior to this recent diagnosis of coronary artery disease. I suspect his peripheral edema is related to having vein harvesting from both legs during the surgery as well as volume administered around the time of surgery. He does not have heart failure. (2) Primary hypertension Assessment & Plan: As above, his blood pressures have been running low so I stopped the beta-nghia and diuretic. We will continue to monitor his blood pressures closely. (3) Mixed hyperlipidemia Assessment & Plan: Continue statin medication. (4) Type 2 diabetes mellitus with complication Assessment & Plan: This is being managed by the hospitalist. CHRIS ROE DO May 08, 2022 10:40
[2022-05-08] MEDS ORDERED: CEPHALEXIN 250 MG (KEFLEX) CAP PO SCH (10:45)
--- NOTE | 2022-05-08 11:18 | Therapy Team Discharge Summary ---
Therapy Discharge Summary Discharge Recommendations Date of Discharge Physical Therapy Patient came to rehab post CABG x3. Upon evaluation patient performs rolling and supine <-> sit with SBA, sit <-> stand and transfers CGA, car transfer CGA, ambulate 300' with a rolling walker with CGA (including 50' with at least 2 turns of 90 degrees and 10' over an uneven surface), up and down 4 steps using 2 handrails with CGA, and picked up an object from the floor with CGA using a control clerk auditing. Patient has been performing bed mobility and transfer training, balance and endurance training, functional strengthening, stair training, gait training, and education. 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 Now, patient performs rolling and supine <-> sit with independence, sit <-> stand and transfers with independence, independent with car transfers, ambulates 500' without an assistive device with independence (including 50' with at least 2 turns of 90 degrees and 10' over an uneven surface), went up and down 12 steps using 2 handrails with independence, and picked up an object from the floor with setup. Patient is being discharged from this facility today and will be discharged from PT at this time. Roll Left to Right (QC): 6 Sit to Lying (QC): 6 Lying to Sitting/Side of Bed(Q: 6 Sit to Stand (QC): 6 Chair/[id number] Xfer(QC): 6 Toilet Transfer (QC): 6 Car Transfer (QC): 6 Does the Patient Walk: Yes Mode of Locomotion: Walk Anticipated Mode of Locomotion: Walk Walk 10 feet (QC): 6 Walk 50 ft with 2 Turns(QC): 6 Walk 150 ft (QC): 6 Walking 10ft on uneven surface: 6 Distance: 300' Gait Assistive Device: None Does the Pt Use a Wheelchair: No Wheel 50 ft with 2 turns (QC): 9 Wheel 150 ft (QC): 9 #of Steps: 12 1 Step (curb) (QC): 6 4 Steps (QC): 6 12 Steps (QC): 6 Balance Sitting Static: Normal Balance Sitting Dynamic: Normal Balance-Standing Static: Normal Picking up an Object (QC): 5 Occupational Therapy Decreased Activ Tolerance, Decreased Safety Aware, Decreased UE Strength, Impaired Funct Balance, Impaired I ADL's, Restricted Funct UE ROM Eating (QC): 6 Oral Hygiene (QC): 6 Shower/Bathe Self (QC): 6 Upper Body Dressing (QC): 6 Lower Body Dressing (QC): 6 On/Off Footwear (QC): 6 Toileting Hygiene (QC): 6 PT Correction Goals Hydrography Teacher Goals PT Hydrography Teacher Goals Time Frame: May 22, 2022 Roll Left to Right (QC): 6 Sit to Lying (QC): 6 Lying-Sitting on Side/Bed(QC): 6 Sit to Stand (QC): 6 Chair/Uzi-hu-Efiqd Xfer(QC): 6 Car Transfer (QC): 6 Does the Patient Walk: Yes Walk 10 feet (QC): 6 Walk 10ft-Uneven Surface(QC): 6 Walk 50ft with 2 Turns (QC): 6 Walk 150 ft (QC): 6 Wheel 50 feet with 2 turns (QC: 9 1 Step (curb) (QC): 6 4 Steps (QC): 6 12 Steps (QC): 6 Picking up an Object (QC): 6 OT Hydrography Teacher Goals Hydrography Teacher Goals Time Frame: May 07, 2022 Eating (QC): 6 (met) Oral Hygiene (QC): 6 (met) Shower/Bathe Self (QC): 6 (met) Upper Body Dressing (QC): 6 (met) Lower Body Dressing (QC): 6 (met) On/Off Footwear (QC): 6 (met) Toileting Hygiene (QC): 6 (met) Toilet/Commode Transfer (QC): 6 1=Demonstrate adherence to instructed precautions during ADL tasks. 2=Patient will verbalize/demonstrate understanding of assistive devices/modifications for ADL. 3=Patient will improve strength/tolerance for activity to enable patient to perform ADL's. JUAN MANUEL CAMPOS PT May 08, 2022 11:18
--- NOTE | 2022-05-08 11:26 | Therapy Team Discharge Summary ---
Therapy Discharge Summary Discharge Recommendations Date of Discharge Therapy D/C Recommendations: Home w/ Family Support Physical Therapy Roll Left to Right (QC): 6 Sit to Lying (QC): 6 Lying to Sitting/Side of Bed(Q: 6 Sit to Stand (QC): 6 Chair/Emn-vq-Izpkt Xfer(QC): 6 Toilet Transfer (QC): 6 Car Transfer (QC): 6 Does the Patient Walk: Yes Mode of Locomotion: Walk Anticipated Mode of Locomotion: Walk Walk 10 feet (QC): 6 Walk 50 ft with 2 Turns(QC): 6 Walk 150 ft (QC): 6 Walking 10ft on uneven surface: 6 Distance: 300' Gait Assistive Device: None Does the Pt Use a Wheelchair: No Wheel 50 ft with 2 turns (QC): 9 Wheel 150 ft (QC): 9 #of Steps: 12 1 Step (curb) (QC): 6 4 Steps (QC): 6 12 Steps (QC): 6 Balance Sitting Static: Normal Balance Sitting Dynamic: Normal Balance-Standing Static: Normal Picking up an Object (QC): 5 Occupational Therapy Pt admitted to ARU with CABG x3. At time of evaluation he was set up for upper body dressing and bathing, and independent for footwear, LB dressing, toileting, eating, and oral care. During his rehab stay, OT focused on compensatory strateg ies for sternal precautions, endurance, balance, and overall strengthening in order to increase performance and independence in adls and functional mobility. Pt made good progress and met all of his intermediate goals. He is currently indep for all adls and functional transfers. Pt will be discharging from this facility today and will be discharged from OT at this time. Decreased Activ Tolerance, Decreased Safety Aware, Decreased UE Strength, Impaired Funct Balance, Impaired I ADL's, Restricted Funct UE ROM Eating (QC): 6 Oral Hygiene (QC): 6 Shower/Bathe Self (QC): 6 Upper Body Dressing (QC): 6 Lower Body Dressing (QC): 6 On/Off Footwear (QC): 6 Toileting Hygiene (QC): 6 PT Termite Exterminator Goals Termite Exterminator Goals PT Half-Way Goals Time Frame: May 22, 2022 Roll Left to Right (QC): 6 Sit to Lying (QC): 6 Lying-Sitting on Side/Bed(QC): 6 Sit to Stand (QC): 6 Chair/Slb-pt-Ubpal Xfer(QC): 6 Car Transfer (QC): 6 Does the Patient Walk: Yes Walk 10 feet (QC): 6 Walk 10ft-Uneven Surface(QC): 6 Walk 50ft with 2 Turns (QC): 6 Walk 150 ft (QC): 6 Wheel 50 feet with 2 turns (QC: 9 1 Step (curb) (QC): 6 4 Steps (QC): 6 12 Steps (QC): 6 Picking up an Object (QC): 6 OT Half-Way Goals Termite Exterminator Goals Time Frame: May 07, 2022 Eating (QC): 6 (met) Oral Hygiene (QC): 6 (met) Shower/Bathe Self (QC): 6 (met) Upper Body Dressing (QC): 6 (met) Lower Body Dressing (QC): 6 (met) On/Off Footwear (QC): 6 (met) Toileting Hygiene (QC): 6 (met) Toilet/Commode Transfer (QC): 6 (met) 1=Demonstrate adherence to instructed precautions during ADL tasks. 2=Patient will verbalize/demonstrate understanding of assistive devices/modifications for ADL. 3=Patient will improve strength/tolerance for activity to enable patient to perform ADL's. Iris Garcia OT May 08, 2022 11:26
[2022-05-08 13:27] VITALS: BP 111/78
== END 2022-05-08 11:20 | disposition home or self-care (01) | DRG 949 ==
PROVIDERS: ADMIT Internal Medicine; ATTEND Internal Medicine
DX: Z48.812 Encounter for surgical aftercare following surgery on the circulatory system (principal); L03.116 Cellulitis of left lower limb; T81.49XA Infection following a procedure, other surgical site, initial encounter; R53.81 Other malaise; Z95.1 Presence of aortocoronary bypass graft; I48.91 Unspecified atrial fibrillation; J44.9 Chronic obstructive pulmonary disease, unspecified; I12.9 Hypertensive chronic kidney disease with stage 1 through stage 4 chronic kidney disease, or unspecified chronic kidney disease; E11.40 Type 2 diabetes mellitus with diabetic neuropathy, unspecified; E11.22 Type 2 diabetes mellitus with diabetic chronic kidney disease; N18.9 Chronic kidney disease, unspecified; N40.0 Benign prostatic hyperplasia without lower urinary tract symptoms; K21.9 Gastro-esophageal reflux disease without esophagitis; E78.2 Mixed hyperlipidemia; I25.119 Atherosclerotic heart disease of native coronary artery with unspecified angina pectoris; M54.9 Dorsalgia, unspecified; H91.90 Unspecified hearing loss, unspecified ear; Z87.891 Personal history of nicotine dependence; Z79.4 Long term (current) use of insulin; Z79.82 Long term (current) use of aspirin; Z79.899 Other long term (current) drug therapy
CPT/HCPCS: 36415; 80053; 82947; 85025; 93005; 93306

== ENCOUNTER → 2022-07-03 | Outpatient (RCR) | payer MEDICARE ==
[~2022-07-03] MED LIST changes: +ASPI-1238 PO; +CEPH500T PO; +FURO40TA4 PO; +INSU100I29 SC; +INSU100V SQ; +INSU100V6 SQ; +METO-333 PO; +POTA-51 PO
== END | disposition home or self-care (01) ==
LOC: CR 06-03 07:43
PROVIDERS: ATTEND Thoracic Surgery (Cardiothoracic Vascular Surgery)
DX: Z29.8 Encounter for other specified prophylactic measures (principal); Z95.1 Presence of aortocoronary bypass graft
CPT/HCPCS: 93798

== ENCOUNTER → 2022-08-02 | Outpatient (RCR) | payer MEDICARE | END | disposition home or self-care (01) | LOC: CR 07-05 07:18 | PROVIDERS: ATTEND Thoracic Surgery (Cardiothoracic Vascular Surgery) | DX: Z29.8 Encounter for other specified prophylactic measures (principal); Z95.1 Presence of aortocoronary bypass graft | CPT/HCPCS: 93798 ==

== ENCOUNTER 2022-08-30 09:55 | Outpatient (RCR) | payer MEDICARE | END 2022-09-02 | disposition home or self-care (01) | LOC: CR 09:55 | PROVIDERS: ATTEND Thoracic Surgery (Cardiothoracic Vascular Surgery) | DX: Z29.8 Encounter for other specified prophylactic measures (principal); Z95.1 Presence of aortocoronary bypass graft | CPT/HCPCS: 93798 ==

== ENCOUNTER 2022-10-16 15:38 | Outpatient (RCR) | payer MEDICARE | END 2022-11-01 | disposition home or self-care (01) | LOC: CR3 15:38 | PROVIDERS: ATTEND Thoracic Surgery (Cardiothoracic Vascular Surgery) | DX: Z29.8 Encounter for other specified prophylactic measures (principal) ==

== ENCOUNTER 2022-12-09 11:53 | Outpatient (RCR) | payer MEDICARE | END 2023-01-02 | disposition home or self-care (01) | LOC: CR3 11:53 | PROVIDERS: ATTEND Thoracic Surgery (Cardiothoracic Vascular Surgery) | DX: Z29.8 Encounter for other specified prophylactic measures (principal) ==

== ENCOUNTER → 2023-08-27 | Outpatient (CLI) | payer MEDICARE ==
[~2023-08-27] MED LIST changes: +CATHETER FLUSH 10 ML SYR IVP PRN; -INSU100I29 SC; -INSU100I29 SQ; +INSU100I30 SC; +INSU100I30 SQ; +POTA-330 PO; -POTA-51 PO
== END ==
LOC: CARD 11:15
PROVIDERS: ATTEND Internal Medicine Cardiovascular Disease
DX: I10 Essential (primary) hypertension (principal); I25.10 Atherosclerotic heart disease of native coronary artery without angina pectoris

== ENCOUNTER → 2023-09-10 | Outpatient (CLI) | payer MEDICARE ==
[~2023-09-10] VITALS: Ht 177 cm; Wt 90.0 kg
[~2023-09-10] MED LIST changes: -CATHETER FLUSH 10 ML SYR IVP PRN; +REGADENOSON 0.4 MG/5 ML SYR IV ONE
[2023-09-10] MEDS: CATHETER FLUSH 10 ML SYR IVP PRN ×2 (08:24→09:29)
[2023-09-10 09:22] VITALS: BP 118/73
--- NOTE | 2023-09-10 11:11 | Cardiology Stress Test Report ---
Stress Test Report Date of Procedure/Referring: Date of Procedure: Sep 10, 2023 PCP Andrey Oconnor DO Admitting Physician Admitting Physician: Attending Physician: Lakeisha Srivastava MD Baseline Heart Rate: 69 Baseline Blood Pressure: Blood Pressure Systolic: 118 Blood Pressure Diastolic: 73 Baseline Vitals Vital Signs Date Time Temp Pulse Resp B/P (MAP) Pulse Ox O2 Delivery O2 Flow Rate FiO2 09/10/23 09:22 70 118/73 (88) 99 Baseline EKG: Baseline EKG: RBBB Summary After explaining the procedure to the patient, he signed a consent and then brought to the stress nuclear laboratory. Patient received 0.4 mg Lexiscan for stress test, ECG, heart rate and blood pressure were monitored continuously. Resting and stress dose of radio tracer were injected, imaging was acquired and reviewed in short axis, horizontal long axis and vertical long axis views. TID: 1.2 SSS: 5 SDS: 1 EF: 64 Patient tolerated Lexiscan well Diaphragmatic attenuation with fixed defect at the inferoapical segment with no significant ischemia or infarction on SPECT images Normal left ventricular size, ejection fraction 64% Copy Copies To 1: ANDREY OCONNOR BASHAR J MD Sep 10, 2023 11:11
== END ==
LOC: CARD 07:58
PROVIDERS: ATTEND Internal Medicine Cardiovascular Disease
DX: I10 Essential (primary) hypertension (principal); I25.10 Atherosclerotic heart disease of native coronary artery without angina pectoris
CPT/HCPCS: 78452; 93017; A9502